=== PATIENT | female | born 1970 | race Caucasian/White ===

== ENCOUNTER → 2024-02-22 15:38 | Outpatient (REF) | payer BC, SELFPAY | LOC: RAD 15:38 | PROVIDERS: ATTENDING PHYSICIAN Internal Medicine Rheumatology; FAMILY PHYSICIAN Family Medicine | DX: M05.79 Rheumatoid arthritis with rheumatoid factor of multiple sites without organ or systems involvement (principal); M75.52 Bursitis of left shoulder | CPT/HCPCS: 73030 ==

== ENCOUNTER 2024-08-13 16:00 | Inpatient (IN) | payer BC, SELFPAY ==
[2024-08-13] VITALS (16 sets, daily range): BP systolic 88–127; BP diastolic 53–108; BMI 29.7; BMI 30.2
[2024-08-13] MEDS: ZOFRAN 4 MG IV (11:29)
[2024-08-13] MEDS: NSS 1000 IV ×2 (11:29→14:14)
[2024-08-13 11:41] LABS: % Basophils 0.2 % (0-2); % Immature Granulocytes 0.7 % (0-0.5); % Monocytes 11.1 % (1.7-9.3); Absolute Immature Granulocytes 0.1 10^3/uL (0-0.05); Absolute Lymphocytes 0.5 10^3/uL (1.2-3.4); Absolute Neutrophils 7.6 10^3/uL (1.4-6.5); Hematocrit 39.2 % (37.0-47.0); Hemoglobin 12.9 g/dL (12.0-16.0); Mean Corp Hgb Conc. 32.9 g/dL (33.0-37.0); Mean Corpuscular Hgb 31.2 pg (27.0-31.0); Mean Corpuscular Volume 94.7 fL (81.0-99.0); Mean Platelet Volume 9.8 fL (7.4-10.4); Nucleated Red Blood Cells % 0 %; Platelet Count 255 10^3/uL (130-400); Red Blood Cell Count 4.14 10^6/uL (4.20-5.40); Red Cell Dist. Width 16.4 % (11.5-14.5); White Blood Cell Count 9.1 10^3/uL (4.8-10.8)
--- NOTE | 2024-08-13 11:41 | ED.GENMED ---
History of Present Illness
General
Chief Complaint: Abdominal Symptoms
Source: patient
Time Seen by Provider: 08/13/24 10:57
Nursing documentation reviewed up to this point in time: agreed with
History of Present Illness
History of Present Illness:
53 y/o F
stage IV kidney ca
had initial nephrectomy R in 2017, no chemo/rad
then recurrence L kidney 2021, had partial L nephrectomy
here 1 year ago for obstruction L ureteral calculus requiring stent but cr was normal then
cr was 1.66 1 week ago
here for nausea/vomiting, intermittent abd pain, lack of appetite, fluctating bps
sypmtoms started 5 days ago, felt lightheaded, nauseated, no appetite
but didn't start vomiting until las tnight
vomited 10 times
says alexandria last had chemo 5 days ago because they are going to try her on a different regimen because she wasn't tolerating
she has also had low bps, and the high bps th epast 5 days
no fever, chills, diarrhea, black stool, passing out
[facility] make sure she doesn't have brain mets
Past History
Past History
ED Past Medical History: IDDM and Other (RA)
ED Past Surgical History: Orthopedic and Tonsilectomy
Social History
Tobacco: Non-smoker
Drug: None
Personal: Single
Employment: Other
Review of Systems
Review of Systems
Allergies reviewed?: Yes
All Other Systems: Not applicable
Phy Exam
Physical Exam
Physical Exam:
GENERAL: Alert , in no apparent distress
EYE: pupils equal and reactive
NECK: Supple
ENT: o/p clr, dry mouth
CARDIAC: Regular rate and rhythm .
LUNGS: Clear breath sounds bilaterally, no acute respiratory distress, no wheezes/rales/rhonchi
ABDOMEN: Soft, generalized abdominal tenderness, no r/g, no cvat, normal bowel sounds
NEUROLOGICAL: Alert and oriented, no focal neuro deficits
SKIN: Warm and dry, skin intact.
MUSCULOSKELETAL: No edema, well perfused. neg abbe's sign
PSYCH: Normal and appropriate interaction.
Course
Orders/Labs/Results
Orders:
Orders
08/13/24 11:24
Electrocardiogram (*1) Urgent
Reason for Study: Fatigue / Weakness
EKG- Treatment ONCE
0.9% Sodium Chloride 1000 ml [Nss] 1,000 ml IV BOLUS
Ondansetron Injectable [Zofran] 4 mg IV NOW STA
08/13/24 11:25
CT Head W/o Iv Contrast Urgent
Comment:
Reason For Exam: vomiting, kidney cancer
08/13/24 11:30
COVID-19 Antigen Urgent
Source: Nasal Swab
Complete Blood Count/With Diff Urgent
Comprehensive Metabolic Panel Urgent
Lipase Urgent
Influenza A+B Rapid Molecular Urgent
SILVER Source: Nasal Swab
Specimen Description:
08/13/24 12:05
CT Abd/pel Without Iv Or Oral Urgent
Comment:
Reason For Exam: vomiting, acute renal failure
Bladder Scan- Treatment ONCE
08/13/24 12:35
Lactic Acid Q4H
Comment: CANCEL 2nd LACTIC ACID IF 1st LACTIC ACID IS LESS THAN 2
Venous Blood Gas Urgent
%Oxygen/Room Air: 21
08/13/24 12:39
Consult Nephrology [NEPHROLOGY CONSULT] Routine
Consulting Provider: Spencer Lane V.
Was physician already notified: Yes
08/13/24 13:08
Frazier Placement- Treatment ONCE
Reason for insertion: Acute Kidney Injury
CefTRIAXone [Rocephin] 1,000 mg IV NOW STA
08/13/24 13:09
0.9% Sodium Chloride 1000 ml [Nss] 1,000 ml IV BOLUS
08/13/24 13:32
Urinalysis Reflex To Culture Urgent
Date Specimen was Collected: 08/13/24
Time Specimen was Collected: 13:27
Urine Microscopic Reflex Cult Urgent
Blood Culture Urgent
SILVER Source: Blood/Venous
Specimen Description:
08/13/24 13:45
Dextrose 5%/Water 1000 ml [D5w] 1,000 ml Sodium Bicarbonate 150 meq IV 150 mls/hr
08/13/24 15:05
Admit/Transfer Patient As Directed
Co-Sign Provider:
Level of Care: Inpatient admission
Assign to:: IMU- Intermediate Care
Physician / Group: Ilzabeth/hospitalist
Diagnosis: YOLIE, met renal cell cancer, hypotension
Reason for Hospitalization: YOLIE, met renal cell cancer, hypotension
Expected length of stay greater than two midnights?: Yes
ELOS- Estimated Length of Stay in days: 4
I certify the patient meets the requirements for IP care: Yes
08/13/24 15:06
PRN Pain Medication Management As Directed
May give lesser potent ordered pain med per pt: Yes
preference::
Protocol:: Medication orders for pain may be administered in a
manner that supports deferring to patient preference
when the pt is:
- Requesting an ordered lesser potent pain medication.
Least to most potent pain medications are defined
as: acetaminophen < NSAID < tramadol < opioids
(morphine, oxycodone, hydromorphone).
- Requesting a lesser dose of the same medication IF
ORDERED.
- Requesting a less intrusive route of administration
if both routes are prescribed by the provider (PO <
IV).
08/13/24 15:08
Code Status As Directed
Resuscitation Status: Full Code
08/13/24 15:29
CR Chest Portable - 1 View Stat
Comment:
Reason For Exam: SOB
Reason Study Needs to be Portable: Patient Unstable
08/13/24 16:15
Lactic Acid Q4H
Comment: CANCEL 2nd LACTIC ACID IF 1st LACTIC ACID IS LESS THAN 2
Abnormal Lab Results
08/13/24 08/13/24 08/13/24
11:30 12:35 13:32
RBC 4.14 L 10^6/uL
(4.20-5.40)
MCH 31.2 H pg
(27.0-31.0)
MCHC 32.9 L g/dL
(33.0-37.0)
RDW 16.4 H %
(11.5-14.5)
Abs Immat Gran (auto) 0.1 H 10^3/uL
(0-0.05)
Absolute Neuts (auto) 7.6 H 10^3/uL
(1.4-6.5)
Absolute Lymphs (auto) 0.5 L 10^3/uL
(1.2-3.4)
Absolute Monos (auto) 1.0 H 10^3/uL
(0.1-0.6)
Immature Gran % 0.7 H %
(0-0.5)
Neutrophils % 83.0 H %
(42.2-75.2)
Lymphocytes % 5.0 L %
(20.5-51.1)
Monocytes % 11.1 H %
(1.7-9.3)
VBG pH 7.14 L*
(7.32-7.43)
VBG pO2 52 H mmHg
(30-50)
VBG HCO3 14.3 L mmol/L
(22-27)
Carbon Dioxide 13 L* mmol/L
(22-30)
BUN 49 H mg/dl
(7-17)
Creatinine 7.6 H* mg/dL
(0.6-1.0)
Glucose 109 H mg/dl
(70-99)
Lactic Acid 6.0 H* mmol/L
(0.7-2.0)
Calcium 11.2 H mg/dl
(8.4-10.2)
AST 43 H U/L
(14-36)
ALT 45 H U/L
(0-35)
Total Protein 6.2 L g/dl
(6.3-8.2)
Lipase 436 H U/L
(23-300)
Ur Occult Blood Reflex 2+ A
(Negative)
Urine Albumin (Reflex) 2+ A
(Neg - Trace)
08/13/24 11:30
08/13/24 11:30
Vital Signs
Initial and Last Documented VS:
Initial Vital Signs
Temp Pulse Resp BP Pulse Ox
36.5 C 98 16 117/76 98
08/13/24 10:01 08/13/24 10:01 08/13/24 10:01 08/13/24 10:01 08/13/24 10:01
Last Documented Vital Signs
Temp Pulse Resp BP Pulse Ox
36.8 C 90 14 109/64 94
08/13/24 12:19 08/13/24 14:20 08/13/24 14:20 08/13/24 14:20 08/13/24 14:20
MDM/Problems Addressed
Differential Diagnosis Includes:
ARF, dehdyration, vomiting, acidosis, obstruction
MDM/Problems Addressed:
catrachitomacarena rosario 53 y/o F
stage IV kidney ca
had initial nephrectomy R in 2017, no chemo/rad
then recurrence L kidney 2021, had partial L nephrectomy
here 1 year ago for obstruction L ureteral calculus requiring stent but cr was normal then
cr was 1.66 1 week ago
the past 5 days says she had nauesa, low and high bp readings and wasn't feeling well
last night started vomiting, vomited 10 times
vitals normal
looks dry mm
abd mild diffuse tenderness
cr is 7.6, bicarb 13, bun 49, k normal, lactate 6, venous ph 7.1, bladder scan 2ml
ct suggests some chroniv vs. acute perirenal/periureteral stranding which could be ascending infx
will place frazier and send UA and will cover with empiric abx
i spoke with dr. lane from nephro
recommended bicarb in the fluids
will see pt
*Critical Care Note
Total Time (30-74mins, 75-104mins- exclusive of procedures): Not Applicable
Update Note
Update Note:
[phone] nidhi RODNEY from [facility] called and spoke with me and was updated,
anna is the oncologist;
ED Attending Note
-
Portions of this chart may have been created with voice recognition software.� Occasional wrong word or��sound alike� substitutions may have occurred due to the inherent limitations of voice recognition software.
Discharge Plan
Departure
Patient Disposition: Admit
Date of Disposition: 08/13/24
Time of Disposition: 12:39
Admit to: IMU
Presentation/result/management discussed w/ accepting MD/DO: Hospitalist
Covid-19: Not Applicable
Discharge Problem:
Acute renal failure, Vomiting
Prescriptions:
No Action
clonidine HCl 0.1 mg Tablet
0.1 mg PO BID
insulin glargine U-300 conc [Toujeo SoloStar U-300 Insulin] 300 unit/mL (1.5 mL) Insulin Pen
20 unit SC HS
Humalog KwikPen Insulin 200 unit/mL (3 mL) Insulin Pen
1 sliding scale dose SC DIRECTED
Patient Comments:
07/12/2023, patient states that they take this medication with their meals but is unsure of their sliding scale dose.
Rinvoq 15 mg Tablet Extended Release 24 Hr
15 mg PO HS
therapeutic multivitamin Tablet
1 tab PO DAILY
simethicone 80 mg Tablet,Chewable
80 mg PO QIDPRN PRN (Reason: gas)
metformin 500 mg Tablet Extended Release 24hr
1,000 mg PO BID@0800,1700
atorvastatin 80 mg Tablet
80 mg PO DAILY
ondansetron HCl 4 mg tablet
4 mg PO Q8HPRN PRN (Reason: nausea)
prednisone 5 mg Tablet
5 mg PO DAILY
levothyroxine 88 mcg Tablet
88 mcg PO DAILY
amlodipine-olmesartan 10-40 mg Tablet
1 tab PO DAILY
Interventions
Interventions:
*Risk Screen - Suicide Last Done: 08/13/24 10:05
*General Assessment Last Done: 08/13/24 10:05
*Neglect/Abuse Screening Last Done: 08/13/24 10:05
ED- Fall Risk Assessment Last Done: 08/13/24 11:36
*ED COVID-19 Vaccine History Last Done: 08/13/24 10:05
DU-Nhbugh-Qenciobcfb Assessment Last Done: 08/13/24 11:36
Discharge Date and Time
Print Language: MAORI
[2024-08-13 11:58] LABS: COVID-19 Antigen Negative (Negative)
[2024-08-13 12:00] LABS: ALT (SGPT) 45 U/L (0-35); AST (SGOT) 43 U/L (14-36); Alkaline Phosphatase 122 U/L (38-126); Blood Urea Nitrogen 49 mg/dl (7-17); Calcium 11.2 mg/dl (8.4-10.2); Carbon Dioxide 13 mmol/L (22-30); Chloride 98 mmol/L (98-107); Estimated Creatinine Clearance 8 ml/min; Glucose 109 mg/dl (70-99); Lipase 436 U/L (23-300); Potassium 4.2 mmol/L (3.5-5.1); Sodium 135 mmol/L (135-145); Total Bilirubin 0.7 mg/dl (0.2-1.3); Total Protein 6.2 g/dl (6.3-8.2); eGFR 5.87
[2024-08-13 12:44] LABS: Venous Blood Gas B.E. -14.1 mmol/L (-4 to +4); Venous Blood Gas HCO3 14.3 mmol/L (22-27); Venous Blood Gas O2 Sat % 83.9 %; Venous Blood Gas pCO2 42 mmHg (35-48); Venous Blood Gas pO2 52 mmHg (30-50)
[2024-08-13 12:48] LABS: Venous Blood Gas pH 7.14 (7.32-7.43)
--- NOTE | 2024-08-13 13:41 | W.CON.NEPH ---
Consultation
-
Date/Time Consultation Requested: August 13, 2024 1:15 PM
Date/Time Consultation Performed: August 13, 2024 1:30 PM
Requesting Provider: Dr. Hidalgo
Performing Provider: Dr. Meeks
Reason for Consultation: Acute kidney injury
Medical History
-
Chief Complaint: Acute kidney injury
History of Present Illness:
The patient is a 53-year-old female with a past medical history of hypertension maintained on clonidine amlodipine olmesartan. She has a history of diabetes maintained both on insulin and oral medications including metformin. She has a history of
chronic kidney disease with a noted creatinine of 1.6 per review of records earlier this week. She has a longstanding history of renal cell carcinoma and underwent right nephrectomy in 2017. She also maintained partial left nephrectomy in 2021 and
recently was noted to have recurrence of disease. She had been previously on chemotherapy which was discontinued I believe within the past 1 to 2 weeks and was to undergo an alternative chemotherapy regimen at the direction of [facility]. She
presented to the hospital with intractable vomiting nausea and abdominal pain. Her creatinine is now up to 7.6 with associated metabolic acidosis and nephrology was asked to see the patient.
Past Medical History
Renal cell carcinoma with history of right nephrectomy in 2017 and left partial nephrectomy in 2021
Hypertension
CKD stage IIIb with baseline creatinine of 1.6
History of nephrolithiasis requiring ureter stent in 2022
Diabetes
Hypothyroidism
Hyperlipidemia
Rheumatoid arthritis
Social History
Tobacco: Non-Smoker
Alcohol: None
Family History
No CKD
Allergies / Home Medications
Allergy/AdvReac Type Severity Reaction Status Date / Time
No Known Allergies Allergy Verified 08/13/24 10:05
�Medication �Instructions �Recorded �Confirmed �Type
clonidine HCl 0.1 mg tablet 0.1 mg PO BID Blood Pressure 07/12/23 08/13/24 History
insulin glargine U-300 conc 300 20 unit SC HS Diabetes 07/12/23 08/13/24 History
unit/mL (1.5 mL) subcutaneous pen
(Touandieo SoloStar U-300 Insulin)
insulin lispro 200 unit/mL (3 mL) 1 sliding scale dose SC 07/12/23 08/13/24 History
subcutaneous pen (Humalog KwikPen DIRECTED Diabetes
U-200 Insulin)
metformin 500 mg tablet,extended 1,000 mg PO BID@0800,1700 Diabetes 07/12/23 08/13/24 History
release 24hr (osmotic)
simethicone 80 mg chewable tablet 80 mg PO QIDPRN PRN gas 07/12/23 08/13/24 History
therapeutic multivitamin 1 tab PO DAILY Supplement 07/12/23 08/13/24 History
upadacitinib 15 mg tablet,extended 15 mg PO HS rheumatoid arthritis 07/12/23 08/13/24 History
release 24 hr (Rinvoq)
amlodipine 10 mg-olmesartan 40 mg 1 tab PO DAILY Blood Pressure 08/13/24 08/13/24 History
tablet
atorvastatin 80 mg tablet 80 mg PO DAILY High Cholesterol 08/13/24 08/13/24 History
levothyroxine 88 mcg tablet 88 mcg PO DAILY Thyroid 08/13/24 08/13/24 History
ondansetron HCl 4 mg tablet 4 mg PO Q8HPRN PRN nausea 08/13/24 08/13/24 History
prednisone 5 mg tablet 5 mg PO DAILY Anti-Inflammatory 08/13/24 08/13/24 History
Review of Systems
-
History Source: Patient
All other systems: Negative unless noted
Constitutional: Fatigue
Respiratory: No Symptoms
Cardiac: No Symptoms
Abdomen/GI: Abdominal Pain, Nausea, Vomiting and Diarrhea
: Other (Decreased urine output)
Musculoskeletal: Joint Pain
Skin: No Symptoms
Neurological: No Symptoms
Endocrine: No Symptoms
Hematologic/Lymphatic: No Symptoms
Physical Exam
Vital Signs
Vital Signs
Temp Pulse Resp BP Pulse Ox
98.3 F 82 15 102/62 100
08/13/24 12:19 08/13/24 12:36 08/13/24 12:36 08/13/24 12:36 08/13/24 12:36
Lab Results
08/13/24 11:30
08/13/24 11:30
WBC 9.1 10^3/uL (4.8-10.8) 08/13/24 11:30
RBC 4.14 10^6/uL (4.20-5.40) L 08/13/24 11:30
Hgb 12.9 g/dL (12.0-16.0) 08/13/24 11:30
Hct 39.2 % (37.0-47.0) 08/13/24 11:30
Plt Count 255 10^3/uL (130-400) 08/13/24 11:30
Sodium 135 mmol/L (135-145) 08/13/24 11:30
Potassium 4.2 mmol/L (3.5-5.1) 08/13/24 11:30
Chloride 98 mmol/L (98-107) 08/13/24 11:30
Carbon Dioxide 13 mmol/L (22-30) L* 08/13/24 11:30
BUN 49 mg/dl (7-17) H 08/13/24 11:30
Creatinine 7.6 mg/dL (0.6-1.0) H* 08/13/24 11:30
eGFR 5.87 08/13/24 11:30
Glucose 109 mg/dl (70-99) H 08/13/24 11:30
Calcium 11.2 mg/dl (8.4-10.2) H 08/13/24 11:30
Albumin 4.0 g/dl (3.5-5.0) 08/13/24 11:30
Physical Exam
General: AOx3, Nontoxic , NAD
HEENT: PERRL, EOMI, Anicteric, Conjunctivae Clear, Ear/Nose Intact, Hearing Normal, Oropharynx Clear/Moist, Dentition Intact, Facial Symmetry, Neck Supple, Neck: Trachea Midline, No JVD and No Thyromegaly, no Bruits
Respiratory: Clear to auscultation bilaterally with normal lung exersion
Cardiac: S1/S2 and Regular Rate/Rhythm
Breast: Deferred by me
Abdomen: Soft, tender, Nondistended, Normal Bowel Sounds and No Hepatosplenomegaly
Rectal: Deferred by Provider
Genito-urinary: No Costovertebral Tenderness
Extremities: No Clubbing, No Cyanosis and trace edema
Skin: No Rash or open lesions
Neuro: Nonfocal/Grossly Intact, CN II-XII (Intact) and Strength (Musculoskeletal exam 5 out of 5 both upper and lower extremities)
Hematologic/Lymphatic: No Cervical Lymphadenopathy, No Submandibular Lymphadenopathy and No Supraclavicular Lymphadenopathy
Psych: Mood/afflect pleasant, Insight/judgement good and Appropriate
Vascular: plus 2 pedal and radial pulses
Data Reviewed
-
Radiology: Report Reviewed by me (CT of abdomen and pelvis without acute obstruction)
Labs: Labs Reviewed by me (BMP CBC)
Old Records: Reviewed (Reviewed previous creatinine level of 1.3 in electronic medical record from 07/12/2023)
Assessment/Plan
-
Impression:
Nausea vomiting abdominal pain
Acute kidney injury 7.6)
Chronic kidney disease stage IIIb with baseline creatinine 1.6
Gapped metabolic acidosis with associated lactic acidosis (24)
Hypertension
Diabetes
History of rheumatoid arthritis
History of obstructive uropathy with history of ureter stent in 2022
Right nephrectomy in 2007
Left partial nephrectomy in 2021
Plan:
YOLIE:
No obvious urinary obstruction on CT scan in setting of unilateral kidney
Suspect strong prerenal stimulus from GI volume losses and hypotension
Will provide sodium bicarbonate drip in the 150 cc/h for underlying gapped lactic acidosis and to support hemodynamic
Hold metformin in setting of acute kidney injury and metabolic acidosis
Obtain urinalysis, urine sodium ,urine creatinine
No acute dialysis requirement today
Hold antihypertensives especially ARB in setting of acute kidney injury and hypotension
[2024-08-13] MEDS: ROCEPHIN 1000 MG IV (14:14)
[2024-08-13] MEDS: SODIUM BICARBONATE 1150 MEQ IV ×2 (14:18→21:52)
[2024-08-13 14:32] LABS: Urine Albumin 2+ (Neg - Trace); Urine Bilirubin Negative (Negative); Urine Character Slightly Cloudy (Clear); Urine Color Yellow; Urine Glucose Negative (Negative); Urine Ketone Negative (Negative); Urine Leukocyte Negative (Negative); Urine Nitrite Negative (Negative); Urine Occult Blood 2+ (Negative); Urine Specific Gravity 1.015 (<1.030); Urine Urobilinogen Negative (Neg - 1+)
[2024-08-13 15:05] LABS: Urine Amorphous Seen; Urine Urothelial Cell 0-2 /LPF (FEW)
[2024-08-13 15:06] LABS: Urine Red Blood Cell 0-2 /HPF (0-2); Urine White Cell 0-2 /HPF (0-5)
--- NOTE | 2024-08-13 15:30 | HPS.HSE ---
Addendum entered and electronically signed by Tavia Barone DO 08/13/24 17:10:
I spoke to interventional radiologist, Dr. Romeo, who reviewed CT scan w/o contrast, said not intervention required at this time. Will hold off on formal consult to IR.
Original Note:
Family Physician
-
Family Physician: Nakul Montes
Chief Complaint
-
left flank pain, n/v
History of Present Illness
53 yo woman with PMH significant for HTN (on ARB and multiple BP meds), renal cell cancer w mets to liver (treated at [facility] w Dr. Guidry), not actively on chemo currently as they were discussing change in cancer txt, on prednisone 5 mg daily
and txt for RA, s/p right nephrectomy and partial left nephrectomy, who presents with very little urine output, left flank pain, and 10 or so episodes of vomiting. No fever, no CP, no SOB, no dysuria. 3 mL of urine on bladder scan in ED. Creat up to
7.6 in ED. Nephro consulted from ED.
Medical History
Past Medical History
Past Medical History: Reports Other (Renal cell carcinoma with history of right nephrectomy in 2018 and left partial nephrectomy in 2021 Hypertension CKD stage IIIb with baseline creatinine of 1.6 History of nephrolithiasis requiring ureter stent in
2022 Diabetes Hypothyroidism Hyperlipidemia Rheumatoid arthritis)
Additional Past Medical History:
Renal cell carcinoma with history of right nephrectomy in 2018 and left partial nephrectomy in 2021
Hypertension
CKD stage IIIb with baseline creatinine of 1.6
History of nephrolithiasis requiring ureter stent in 2022
Diabetes, insulin dependent
Hypothyroidism
Hyperlipidemia
Rheumatoid arthritis
Past Surgical History: Reports Orthopedic, Tonsilectomy and Other
Additional Past Surgical History:
Renal cell carcinoma with history of right nephrectomy in 2018 and left partial nephrectomy in 2021
Social History
Alcohol: None
Drug: None
Personal: Single
Family History
Family History: Not pertinent
Allergies / Home Medications
Allergies reflects when Allergies were last updated in [employer].
Home Medications with original date entered in [employer]
Allergy/Medication List:
Allergies
Allergy/AdvReac Type Severity Reaction Status Date / Time
No Known Allergies Allergy Verified 08/13/24 10:05
Home Medications
clonidine HCl 0.1 mg tablet 0.1 mg PO BID Blood Pressure 07/12/23
insulin glargine U-300 conc 300 unit/mL (1.5 mL) subcutaneous pen (Toujeo SoloStar U-300 Insulin) 20 unit SC HS Diabetes 07/12/23
insulin lispro 200 unit/mL (3 mL) subcutaneous pen (Humalog KwikPen U-200 Insulin) 1 sliding scale dose SC DIRECTED Diabetes 07/12/23
metformin 500 mg tablet,extended release 24hr (osmotic) 1,000 mg PO BID@0800,1700 Diabetes 07/12/23
simethicone 80 mg chewable tablet 80 mg PO QIDPRN PRN gas 07/12/23
therapeutic multivitamin 1 tab PO DAILY Supplement 07/12/23
upadacitinib 15 mg tablet,extended release 24 hr (Rinvoq) 15 mg PO HS rheumatoid arthritis 07/12/23
amlodipine 10 mg-olmesartan 40 mg tablet 1 tab PO DAILY Blood Pressure 08/13/24
atorvastatin 80 mg tablet 80 mg PO DAILY High Cholesterol 08/13/24
levothyroxine 88 mcg tablet 88 mcg PO DAILY Thyroid 08/13/24
ondansetron HCl 4 mg tablet 4 mg PO Q8HPRN PRN nausea 08/13/24
prednisone 5 mg tablet 5 mg PO DAILY Anti-Inflammatory 08/13/24
Review of Systems
-
A 12 point ROS was completed and negative except as noted: Yes
Physical Exam
Vital Signs
Vital Signs
Temp Pulse Resp BP Pulse Ox
98.3 F 90 14 109/64 94
08/13/24 12:19 08/13/24 14:20 12/10/24 14:20 08/13/24 14:20 08/13/24 14:20
Physical Exam
General: Appears Chronically Ill
HEENT: NormoCephalic, Anicteric and Other (dry mucous membranes)
Respiratory: Clear
Cardiac: S1/S2 and Regular Rhythm
GI: Soft (CVA tenderness b/l)
Musculoskeletal: No Clubbing, No Cyanosis and Other (mild b/l LE edema)
Skin: Warm and Dry
Neuro: AO x 3, No Motor Deficits and Nonfocal/grossly intact
Psych: Calm
Laboratory Results
-
08/13/24 11:30
08/13/24 11:30
Laboratory Results
Lactic Acid 6.0 mmol/L (0.7-2.0) H* 08/13/24 12:35
Total Bilirubin 0.7 mg/dl (0.2-1.3) 08/13/24 11:30
AST 43 U/L (14-36) H 08/13/24 11:30
ALT 45 U/L (0-35) H 08/13/24 11:30
Alkaline Phosphatase 122 U/L (38-126) 08/13/24 11:30
Lipase 436 U/L (23-300) H 08/13/24 11:30
Impression/Plan
-
IMPRESSION:
53 yo woman with PMH significant for HTN (on ARB and multiple BP meds), renal cell cancer w mets to liver (treated at [facility] Dr. Guidry), not actively on chemo currently as they were discussing change in cancer txt, on prednisone 5 mg daily
and txt for RA, s/p right nephrectomy and partial left nephrectomy, who presents with very little urine output, left flank pain, and 10 or so episodes of vomiting. No fever, no CP, no SOB, no dysuria. 3 mL of urine on bladder scan in ED. Creat up to
7.6 in ED. Nephro consulted from ED.
#Renal cell carcinoma with mets to liver, status post right nephrectomy in 2018 and partial left nephrectomy 2021, treated at [facility] (not actively on chemo though immunosuppressed on steroids and Rinvoq for RA)
#Possible infected left kidney , acute vs acute on chronic
-IV Zosyn, renally dosed
-blood cultures
-discuss with Urology- consult placed
-consult IRad - to discuss findings on CT imaging as to whether percutaneous drain would be beneficial if there is drainable infection
#Acute renal failure, with Metabolic acidosis due to acute renal failure, possibly from severe volume depletion due to vomiting, less likely renal obstruction as imaging (non-contrast) does not show obstruction
-sterile water w bicarb at 150 mL per hour
-repeat LA levels
-serial lab monitoring
-hold ARB, hold nephrotoxic agents, renally dose meds
-UA labs
-check Mg
#Hypotensive with history of Hypertension
-hold BP meds
-monitor on tele in IMU, IVF
#CKD stage IIIb with baseline creatinine of 1.6
#History of nephrolithiasis requiring ureter stent in 2022
#Diabetes, insulin dependent
-half dose of long-acting insulin for now
-SSI
#Hypothyroidism
-check TSH
#Hyperlipidemia
#Rheumatoid arthritis
-hold Rinvoq for now due to severe ADR with steroids, cont prednisone 5 mg daily for now
DVT proph-Hep SQ
Full Code
[2024-08-13 17:58] LABS: Urine Sodium 93 mmol/L (30-90)
[2024-08-13 18:28] LABS: Lactic Acid 3.8 mmol/L (0.7-2.0)
--- NOTE | 2024-08-13 20:00 | PTCARENOTE ---
Resumed care of pt laying in bed AAOx3. Pt reports middle back pain 01/11, awaiting on pharmacy for pain medication. HR in the 80's in NSR on the monitor. POX 93% on 2 LO2 NC. POX 85% on RA. Lungs dec t/o. + bowel, round abd. Pt reports nausea
subsided at this time. Randle cath in place per nephrology for YOLIE. Scant clear yellow urine in bag at this time. Palpable peripheral pulses present. Pale skin. Right AC int infusing bicarb gtt@150ml/hr. Pt assisted to bathroom, pt ambulatory with
standby assist. Pt moved bowels without difficulty. Pt positioned in bed per comfort. Call ellison in reach will continue to monitor.
[2024-08-13 20:23] LABS: Magnesium 2.1 mg/dl (1.6-2.3)
[2024-08-13] MEDS: ULTRAM 50 MG PO (20:43)
[2024-08-13] MEDS: ZOSYN 50 IV (20:44)
[2024-08-13 20:58] LABS: Urine Sodium 93 mmol/L (30-90)
[2024-08-13] MEDS: HEPARIN 5000 UNITS SC (21:01)
[2024-08-13 21:33] LABS: Glucose - Point of Care 224 mg/dl (70-99)
[2024-08-13] MEDS: NOVOLOG FLEXPEN-MODERATE RESISTANCE 3 UNITS SC (21:49)
[2024-08-13] MEDS: LANTUS 0.08 UNITS SC (21:52)
[2024-08-14] VITALS (37 sets, daily range): BP systolic 82–135; BP diastolic 52–85; BMI 30.3
[2024-08-14 01:43] LABS: Lactic Acid 2.4 mmol/L (0.7-2.0)
--- NOTE | 2024-08-14 04:00 | PTCARENOTE ---
Rec'd pt from ER via bed on monitor, oriented to Routine, CHG bath done, SR, Bp stable,+ pulses, skin warm/dry, O2 2liters nc, lungs decr in bases, sat 95, + bowels sounds, no bm, abd obese, no n/v, mahogany fluids, frazier draining lluvia urine
0415- ultram 50mg po given for generalized pain
[2024-08-14] MEDS: SYNTHROID 88 MCG PO (04:13)
[2024-08-14] MEDS: ULTRAM 50 MG PO (04:13)
[2024-08-14 04:32] LABS: % Basophils 0.3 % (0-2); % Eosinophils 2.9 % (0-6); % Immature Granulocytes 0.7 % (0-0.5); % Lymphocytes 3.9 % (20.5-51.1); % Monocytes 9.5 % (1.7-9.3); % Neutrophils 82.7 % (42.2-75.2); Absolute Eosinophils 0.2 10^3/uL (0-0.7); Absolute Immature Granulocytes 0.1 10^3/uL (0-0.05); Absolute Lymphocytes 0.3 10^3/uL (1.2-3.4); Absolute Monocytes 0.7 10^3/uL (0.1-0.6); Absolute Neutrophils 5.9 10^3/uL (1.4-6.5); Hematocrit 32.7 % (37.0-47.0); Hemoglobin 11.2 g/dL (12.0-16.0); Mean Corp Hgb Conc. 34.3 g/dL (33.0-37.0); Mean Corpuscular Hgb 31.6 pg (27.0-31.0); Mean Corpuscular Volume 92.4 fL (81.0-99.0); Mean Platelet Volume 9.9 fL (7.4-10.4); Nucleated Red Blood Cells % 0 %; Platelet Count 196 10^3/uL (130-400); Red Blood Cell Count 3.54 10^6/uL (4.20-5.40); Red Cell Dist. Width 16.2 % (11.5-14.5); White Blood Cell Count 7.2 10^3/uL (4.8-10.8)
[2024-08-14 04:59] LABS: ALT (SGPT) 36 U/L (0-35); AST (SGOT) 33 U/L (14-36); Albumin 2.7 g/dl (3.5-5.0); Alkaline Phosphatase 93 U/L (38-126); Blood Urea Nitrogen 58 mg/dl (7-17); Carbon Dioxide 27 mmol/L (22-30); Chloride 95 mmol/L (98-107); Creatine Phosphokinase 47 U/L (30-135); Estimated Creatinine Clearance 9 ml/min; Glucose 112 mg/dl (70-99); Potassium 3.7 mmol/L (3.5-5.1); Sodium 133 mmol/L (135-145); Total Bilirubin 0.5 mg/dl (0.2-1.3); Total Protein 4.7 g/dl (6.3-8.2); eGFR 6.95
[2024-08-14] MEDS: SODIUM BICARBONATE 1150 MEQ IV (04:59)
[2024-08-14] MEDS: NOVOLOG FLEXPEN-MODERATE RESISTANCE SC ×3 (07:53→17:49)
--- NOTE | 2024-08-14 07:55 | PTCARENOTE ---
0700 patient in bed. Sodium Bicarb infusing 150/hr via RT FA.
AAO x3. Moves b/l UE and LE Equal straight
SR 77 BP Via left UA 117/74 MAP 83
Lungs diminished. RR 14; On 2L of O2 96% on RA 86% No SOB no cough
Abdomen round soft tender . Hyperactive BS . +Nausea No vomiting
Indwelling Randle inserted in ER . Draining Clear pale urine. Oliguria over night
peripheral lines RT AC #20 Left hadn capped # 20
Blood sugar am 85 No coverage
HOB elevated. call ellison within reach
--- NOTE | 2024-08-14 08:04 | PTCARENOTE ---
Medication Compactability
Zosyn and bicarb both comparable verified via [employer]
[2024-08-14 08:10] LABS: Glucose - Point of Care 85 mg/dl (70-99)
[2024-08-14] MEDS: LIPITOR 80 MG PO (08:18)
[2024-08-14] MEDS: ZOSYN 50 IV ×2 (08:18→19:54)
[2024-08-14] MEDS: HEPARIN 5000 UNITS SC ×2 (08:18→19:54)
[2024-08-14] MEDS: TYLENOL 650 MG PO (08:24)
--- NOTE | 2024-08-14 09:22 | W.PN.NEPH.PH ---
Today's Communication / Plan
-
IVF NSS
Assessment/Plan
-
Impression:
Nausea vomiting abdominal pain
Acute kidney injury 7.6)
Chronic kidney disease stage IIIb with baseline creatinine 1.6
Gapped metabolic acidosis with associated lactic acidosis (24)
Hypertension
Diabetes
History of rheumatoid arthritis
History of obstructive uropathy with history of ureter stent in 2022
Right nephrectomy in 2007
Left partial nephrectomy in 2021
Plan:
change IVF to NSS
follow BMP
no emergent HD needs
should escape dialysis
maintain frazier today
critical care time 31 minutes
-
-
Date of Service: August 14, 2024
CC / HPI / ROS
-
Chief Complaint:
YOLIE
History of Present Illness:
YOLIE/Cr down to 6.6
acidosis improved with IVF bicarb
Na low at 133
lactate improving
BP remains low
critically ill in ICU
frazier, in, nonoliguric
Review of Systems:
no CP/SOB
Labs
-
Labs:
WBC 7.2 10^3/uL (4.8-10.8) 08/14/24 04:21
RBC 3.54 10^6/uL (4.20-5.40) L 08/14/24 04:21
Hgb 11.2 g/dL (12.0-16.0) L 08/14/24 04:21
Hct 32.7 % (37.0-47.0) L 08/14/24 04:21
Plt Count 196 10^3/uL (130-400) D 08/14/24 04:21
Sodium 133 mmol/L (135-145) L 08/14/24 04:21
Potassium 3.7 mmol/L (3.5-5.1) 08/14/24 04:21
Chloride 95 mmol/L (98-107) L 08/14/24 04:21
Carbon Dioxide 27 mmol/L (22-30) 08/14/24 04:21
BUN 58 mg/dl (7-17) H 08/14/24 04:21
Creatinine 6.6 mg/dL (0.6-1.0) H* 08/14/24 04:21
eGFR 6.95 08/14/24 04:21
Glucose 112 mg/dl (70-99) H 08/14/24 04:21
Calcium 9.0 mg/dl (8.4-10.2) D 08/14/24 04:21
Albumin 2.7 g/dl (3.5-5.0) L 08/14/24 04:21
Physical Exam
-
Vital Signs:
Vital Signs
Temp Pulse Resp BP Pulse Ox
98.2 F 76 13 99/61 94
08/14/24 08:05 08/14/24 06:00 08/14/24 06:00 08/14/24 06:00 08/14/24 05:24
Cardiovascular:: Regular rate and rhythm
Respiratory:: Bilateral: CTA
Lung Excursion:: Normal
Abdomen:: Nontender and Soft
Bowel Sounds:: Normal
Extremity Edema:: None: Bilateral:
--- NOTE | 2024-08-14 10:23 | W.PN.HOSP.TC ---
Today's Communication/Plan
-
feeling better
see PN
Assessment / Plan
Assessment / Plan
53yo F with PMHX of RCC s/p R nephrectomy and partial L nephrectomy, CKD stage 3, Hx of nephrolithiasis, recent chemotherapy cycle that was terminated due to worsening nausea came with nausea, vomiting and minimal diarrhea over past 2 days prior to
admission, managed for complicated UTI with nephrolithiasis, YOLIE and also mild hypoxemia
A/P:
#UTI, complicated with non-obstructive nephrolithiasis and mild dilation of the L upper calyces
#Nausea most likely intolerance of the recent chemo
Zosyn
Urology consult
Bcx pending
Urine not indicative of infection
ZOfran
#Acute hypoxic insufficiency
#Atelectasis
R hemidiaphragm elevation
wheezing on exam
Bronchodilators
Increase steroids
Incentive spirometry
#YOLIE on CKD stage 3
most likely hypovolemic 2/2 dehydration
frazier
serial BMP
Nephrology
IVF
#RCC with liver lesions and L kidney mass and lythic osseous mets on L humeral head
cont follow up with [facility] upon d/c
#DJD
tylenol
#DM type 2 with nephropathy
DM diet, accuchecks, Insulin SS
decrease Glagrine to 8units
#minimal ALT elevation
follow LFT
HepC Ab
#Anemia of chronic disease
minimal
monitor CBC
#Essential HTN
#HLD
#hypothyroidism
#RA on steroids
Hold Rinvoq
TSH WNL
cont home meds except of BP meds since hypotension 2/2 dehydration
DVT ppx hep
Full code
I have spent at least 59min reviewing chart, test results, communication with consultants and direct patient care
Anticipated Discharge: > 48 hours
Subjective/Interval History
-
Date of Service: August 14, 2024
Objective Data
-
Labs:
Laboratory Results
08/14/24
04:21
WBC 7.2
Hgb 11.2 L
Hct 32.7 L
Plt Count 196 D
Sodium 133 L
Potassium 3.7
Chloride 95 L
Carbon Dioxide 27
BUN 58 H
Creatinine 6.6 H*
Glucose 112 H
Calcium 9.0 D
Total Bilirubin 0.5
AST 33
ALT 36 H
Alkaline Phosphatase 93
Vital Signs:
Vital Signs
Temp Pulse Resp BP Pulse Ox
98.2 F 76 13 99/61 94
08/14/24 08:05 08/14/24 06:00 08/14/24 06:00 08/14/24 06:00 08/14/24 05:24
I&O
08/13/24 08/14/24 08/15/24
06:59 06:59 06:59
Intake Total 1700 / 1700
Output Total 190 / 190
Balance 1510 / 1510
Review of Systems
-
History Source: Patient
All other systems: Reviewed and negative
Abdomen/GI: Reports Abdominal Pain (LLQ)
Physical Exam
-
General: No Apparent Distress
HEENT: Normocephalic
Respiratory: Wheezes
Neuro: Awake, Alert, Oriented and AO x 3
Psych: Calm
[2024-08-14] MEDS: DELTASONE 5 MG PO (10:47)
[2024-08-14] MEDS: NSS 1000 IV ×2 (10:49→20:30)
[2024-08-14] MEDS: ZOFRAN 4 MG IV (10:55)
[2024-08-14] MEDS: DUONEB 3 ML INH ×3 (11:03→19:17)
[2024-08-14 11:58] LABS: Glucose - Point of Care 106 mg/dl (70-99)
--- NOTE | 2024-08-14 14:47 | CM ---
CM following re: discharge planning.
Reviewed pt's chart, met with pt.
Pt is a 53 year old female, admitted with primary dx of YOLIE.
Pt reports she lives with 85 year old mother in a 2SH, 2 steps to enter, has supportive brother, has no children. Pt described herself as independent in all areas [employer]. No DME, VN or SNF history
PCP: Nakul Montes
Pharmacy: [facility]
D/C plan: home with anticipated no needs. Family to transport at discharge.
CM will follow with discharge plan updates as hospitalization progresses
--- NOTE | 2024-08-14 17:22 | PTCARENOTE ---
OOB chair for about 3 hours . Transfer one person minimum assist. AAO x3. SR 80's BP 96/54 MAP 67. continues to c/o of chronic lower back pain. abdomen soft round tender. Randle draining pale color urine. NSS infusing per order
[2024-08-14 17:36] LABS: Glucose - Point of Care 135 mg/dl (70-99)
[2024-08-14] MEDS: LANTUS 0.08 UNITS SC (22:02)
[2024-08-14 22:12] LABS: Glucose - Point of Care 193 mg/dl (70-99)
--- NOTE | 2024-08-14 22:12 | PTCARENOTE ---
Patient received in bed AAOx3 and able to make her needs known. Denies pain, nausea, and sob at this time. Plan of care for the shift reviewed with the patient. Sinus rhythm on the monitor. Patient is on 2L O2/nc with SpO2 at 96%. Diminished breath
sounds. The patient has a dry cough with inhalation, dyspneic with inhalation. IS max of 500 x4 attempts. Teaching and encouragement provided on the importance of IS use to improve lungs function. Pt verbalized understanding. Pt ambulated to the
bathroom with assist. Pt assisted in night care and wiping herself with CHG wipes. Randle catheter is draining yellow urine. Normal saline at 100 ml/hr. Pt turns and repositions herself. Bed in the lowest position. Call ellison is within reach.
[2024-08-15] VITALS (23 sets, daily range): BP systolic 87–150; BP diastolic 59–102; BMI 30.7
--- NOTE | 2024-08-15 04:00 | PTCARENOTE ---
assumed care of pt, no changes from previous assessment, labs sent, pt denies pain, otherwise refer to documentation.
[2024-08-15 04:13] LABS: % Basophils 0.2 % (0-2); % Immature Granulocytes 0.5 % (0-0.5); % Lymphocytes 2.4 % (20.5-51.1); % Monocytes 7.1 % (1.7-9.3); % Neutrophils 89.8 % (42.2-75.2); Absolute Lymphocytes 0.2 10^3/uL (1.2-3.4); Absolute Monocytes 0.5 10^3/uL (0.1-0.6); Hematocrit 36.2 % (37.0-47.0); Mean Corp Hgb Conc. 33.1 g/dL (33.0-37.0); Mean Corpuscular Volume 93.5 fL (81.0-99.0); Mean Platelet Volume 10.1 fL (7.4-10.4); Nucleated Red Blood Cells % 0 %; Platelet Count 211 10^3/uL (130-400); Red Blood Cell Count 3.87 10^6/uL (4.20-5.40); Red Cell Dist. Width 16.5 % (11.5-14.5); White Blood Cell Count 6.7 10^3/uL (4.8-10.8)
[2024-08-15 05:00] LABS: ALT (SGPT) 35 U/L (0-35); AST (SGOT) 40 U/L (14-36); Albumin 2.9 g/dl (3.5-5.0); Alkaline Phosphatase 123 U/L (38-126); Blood Urea Nitrogen 65 mg/dl (7-17); Calcium 9.5 mg/dl (8.4-10.2); Carbon Dioxide 27 mmol/L (22-30); Chloride 92 mmol/L (98-107); Estimated Creatinine Clearance 8 ml/min; Glucose 134 mg/dl (70-99); Potassium 3.9 mmol/L (3.5-5.1); Sodium 134 mmol/L (135-145); Total Bilirubin 0.6 mg/dl (0.2-1.3); Total Protein 5.1 g/dl (6.3-8.2); eGFR 6.16
[2024-08-15] MEDS: SYNTHROID 88 MCG PO (05:15)
[2024-08-15] MEDS: DUONEB 3 ML INH ×4 (07:10→19:06)
[2024-08-15 07:54] LABS: Glucose - Point of Care 111 mg/dl (70-99)
[2024-08-15] MEDS: NOVOLOG FLEXPEN-MODERATE RESISTANCE SC (08:05)
[2024-08-15] MEDS: DELTASONE PO (08:29)
[2024-08-15] MEDS: ZOSYN IV (08:29)
--- NOTE | 2024-08-15 08:49 | W.PN.HOSP.TC ---
Today's Communication/Plan
-
increase prednisone
broad spectrum Abx
Urology for stent - hold Glargine tonight
Repeat Bcx
Assessment / Plan
Assessment / Plan
53yo F with PMHX of RCC s/p R nephrectomy and partial L nephrectomy, CKD stage 3, Hx of nephrolithiasis, recent chemotherapy cycle that was terminated due to worsening nausea came with nausea, vomiting and minimal diarrhea over past 2 days prior to
admission, managed for complicated UTI with nephrolithiasis, bacteremia, YOLIE and also mild hypoxemia
A/P:
#UTI, complicated with non-obstructive nephrolithiasis and mild dilation of the L upper calyces
#Nausea most likely intolerance of the recent chemo
Urology consult: pending stent
Urine not indicative of infection
ZOfran
#Bacteremia
GPC in blood
Hx of strep. UTI
with ill defined mass L kidney - stable, discussed drain with [facility] on admission, at this time not indicated
Repeat Bcx
Vanco/Zosyn
UA neg
Echo
#Acute hypoxic insufficiency
#Atelectasis
R hemidiaphragm elevation
wheezing on exam
Bronchodilators
Increase steroids
Incentive spirometry
#YOLIE on CKD stage 3
most likely hypovolemic 2/2 dehydration
fraizer
serial BMP
Nephrology
IVF
#RCC with liver lesions and L kidney mass and lithic osseous mets on L humeral head
cont follow up with [facility] upon d/c
#DJD
tylenol
#DM type 2 with nephropathy
DM diet, accuchecks, Insulin SS
decrease Glagrine to 8units
#minimal ALT elevation
follow LFT
HepC Ab
#Anemia of chronic disease
minimal
monitor CBC
#Essential HTN
#HLD
#hypothyroidism
#RA on steroids
Hold Rinvoq
TSH WNL
cont home meds except of BP meds since hypotension 2/2 dehydration
DVT ppx hep
Full code
I have spent at least 59min reviewing chart, test results, communication with consultants and direct patient care
Anticipated Discharge: > 48 hours
Subjective/Interval History
-
Date of Service: August 15, 2024
Objective Data
-
Labs:
Laboratory Results
08/15/24
03:43
WBC 6.7
Hgb 12.0
Hct 36.2 L
Plt Count 211
Sodium 134 L
Potassium 3.9
Chloride 92 L
Carbon Dioxide 27
BUN 65 H
Creatinine 7.3 H*
Glucose 134 H
Calcium 9.5
Total Bilirubin 0.6
AST 40 H
ALT 35
Alkaline Phosphatase 123
Vital Signs:
Vital Signs
Temp Pulse Resp BP Pulse Ox
98.3 F 84 18 117/63 95
08/15/24 08:00 08/15/24 07:10 08/15/24 07:10 08/15/24 06:00 08/15/24 07:10
I&O
08/14/24 08/15/24 08/16/24
06:59 06:59 06:59
Intake Total 1700 / 1850 2080 / 2080
Output Total 190 / 190 875 / 875
Balance 1510 / 1660 1205 / 1205
Review of Systems
-
History Source: Patient
All other systems: Reviewed and negative
Abdomen/GI: Reports Bloated
Physical Exam
-
General: No Apparent Distress
HEENT: Normocephalic
Respiratory: Clear to Auscultation
GI: Soft, Nondistended and Tender
Musculoskeletal: No Clubbing, No Cyanosis and No Edema
Neuro: Awake, Alert, Oriented and AO x 3
Psych: Calm
--- NOTE | 2024-08-15 08:53 | PHA.VAN.IN ---
Assessment
- Assessment
Renal Function: Appears elevated from baseline
Maximum Temperature: 98.6
Concomitant Antimicrobials: piperacillin-tazbactam
Plan
- Plan
Initial / Loading Dose: vanc 1500mg (20 mg/kg) pending administration
Maintenance Regimen: dose by level
Monitoring: random 1213 am
Pharmacokinetics Vancomycin I
- -
Patient Age: 53
Patient Sex: Female
Vancomycin Day #: 1
Indication: Bacteremia
Requesting Provider: Dr Coburn
Pertinent Antimicrobial Allergies:
no known allergies
Height / Weight:
Height 5 ft 2 in
Actual Weight 76 kg
Pertinent Past Medical History: Kidney Cancer on chemo
- Vital Signs / Lab Results
Temp Pulse Resp BP Pulse Ox
98.3 F 84 18 117/63 95
08/15/24 08:00 08/15/24 07:10 08/15/24 07:10 08/15/24 06:00 08/15/24 07:10
Lab Results - Hematology
08/13/24 08/14/24 08/15/24
11:30 04:21 03:43
WBC 9.1 7.2 6.7
Lab Results - Chemistry
08/13/24 08/14/24 08/15/24
11:30 04:21 03:43
BUN 49 H 58 H 65 H
Creatinine 7.6 H* 6.6 H* 7.3 H*
Estimated Creat Clear 8 9 8
Albumin 4.0 2.7 L 2.9 L
08/13/24 08/13/24 08/14/24
12:35 18:10 01:16
Lactic Acid 6.0 H* 3.8 H 2.4 H
08/14/24
04:21
Lactic Acid 2.0
Lab Results - Urine
08/13/24
13:32
Urine Nitrite (Reflex) Negative
Leukocyte Esterase Rfl Negative
Urine WBC (Reflex) 0-2
Ur Squamous Epith Cells 11-15
Microbiology Results
08/13/24 13:32 Blood Culture - Preliminary
Blood/Venous Positive culture in progress
Gram Stain - Preliminary
08/13/24 11:30 Influenza Types A & B (CHRISTY) - Final
Nasal Swab Negative for Influenza A & B, NAAT
Negative results must be combined with clinical observations
and patient history.
Nucleic Acid Amplification test (NAAT)performed on the
[employer] NOW platform.
[2024-08-15] MEDS: ZOSYN 50 IV (09:20)
[2024-08-15] MEDS: LIPITOR 80 MG PO (09:20)
[2024-08-15] MEDS: TUMS CHEWABLE TABLET 200 MG PO (09:20)
--- NOTE | 2024-08-15 09:20 | W.PN.NEPH.PH ---
Today's Communication / Plan
-
IVF
Assessment/Plan
-
Impression:
Nausea vomiting abdominal pain
Acute kidney injury 7.6)
Chronic kidney disease stage IIIb with baseline creatinine 1.6
Gapped metabolic acidosis with associated lactic acidosis (24)
Hypertension
Diabetes
History of rheumatoid arthritis
History of obstructive uropathy with history of ureter stent in 2022
Right nephrectomy in 2007
Left partial nephrectomy in 2021
strep bacteremia
Plan:
continue IVF today
follow BMP
no emergent HD needs today
probably ATN
maintain frazier today
still with [facility]. If Cr worsens can check retrograde pyelogram
critical care time 31 minutes
-
-
Date of Service: August 15, 2024
CC / HPI / ROS
-
Chief Complaint:
YOLIE
History of Present Illness:
YOLIE/Cr up to 7.3
Na low at 134
lactate improving
BP remains low stable
critically ill in ICU
frazier, in, nonoliguric
Review of Systems:
no CP/SOB
Labs
-
Labs:
WBC 6.7 10^3/uL (4.8-10.8) 08/15/24 03:43
RBC 3.87 10^6/uL (4.20-5.40) L 08/15/24 03:43
Hgb 12.0 g/dL (12.0-16.0) 08/15/24 03:43
Hct 36.2 % (37.0-47.0) L 08/15/24 03:43
Plt Count 211 10^3/uL (130-400) 08/15/24 03:43
Sodium 134 mmol/L (135-145) L 08/15/24 03:43
Potassium 3.9 mmol/L (3.5-5.1) 08/15/24 03:43
Chloride 92 mmol/L (98-107) L 08/15/24 03:43
Carbon Dioxide 27 mmol/L (22-30) 08/15/24 03:43
BUN 65 mg/dl (7-17) H 08/15/24 03:43
Creatinine 7.3 mg/dL (0.6-1.0) H* 08/15/24 03:43
eGFR 6.16 08/15/24 03:43
Glucose 134 mg/dl (70-99) H 08/15/24 03:43
Calcium 9.5 mg/dl (8.4-10.2) 08/15/24 03:43
Albumin 2.9 g/dl (3.5-5.0) L 08/15/24 03:43
Physical Exam
-
Vital Signs:
Vital Signs
Temp Pulse Resp BP Pulse Ox
98.3 F 84 18 117/63 95
08/15/24 08:00 08/15/24 07:10 08/15/24 07:10 08/15/24 06:00 08/15/24 07:10
Cardiovascular:: Regular rate and rhythm
Respiratory:: Bilateral: Coarse
Lung Excursion:: Normal
Abdomen:: Nontender and Soft
Bowel Sounds:: Normal
Extremity Edema:: None: Bilateral:
[2024-08-15] MEDS: DELTASONE 20 MG PO (09:21)
[2024-08-15] MEDS: HEPARIN 5000 UNITS SC ×2 (09:21→19:43)
[2024-08-15] MEDS: OCEAN, SALINE MIST 1 SPRAYS NASAL (09:38)
[2024-08-15] MEDS: VANCOCIN 530 MG IV (10:01)
[2024-08-15] MEDS: NSS 500 IV (10:06)
--- NOTE | 2024-08-15 10:31 | CON.MD ---
Consultation - Medical
-
see dictated note
pt wih hx of met RCC- followed at - s/p right nephrectomy and partial left
also hx of stones- with left ureteroscopy and stent in 2022
admitted with ARF/septic appearing picture
ct scan did not show any obvious hydro/ stable post surgical renal change in left kidney
her cr remains elevated- but is making increasing volumes of urine with medical treatment
ucx shows strep- 1 blood cx now +
reviewed films and discussed with pt and nephrology
in terms of dorene-renal left kidney finding- this appears chronic and not a course of infx- this was also discussed on admit with IR and they did not think it appeared to be an abscess or needed drainage
in terms of ARF- no sig hydro- pt is making urine arguing against an obstructed solitary kidney- discussed possible cysto/retrograde and stent with pt and nephrology- for now elected to observe- for any worsening renal parameters- would consider
--- NOTE | 2024-08-15 10:48 | PTCARENOTE ---
pt aaox3. states having some heartburn. made aware. ivf bolus given as ordered. ivf running as ordered. freddie in place.
[2024-08-15] MEDS: NSS 1000 IV ×2 (11:58→23:25)
[2024-08-15 12:30] LABS: Glucose - Point of Care 182 mg/dl (70-99)
[2024-08-15] MEDS: NOVOLOG FLEXPEN-MODERATE RESISTANCE 1 UNITS SC (13:01)
--- NOTE | 2024-08-15 15:26 | W.PN.UPDATE ---
Update Note
Progress Note Update
Probable vegetations on aortic valve - ID to review
Ureteral stent most likely on Sat if kidney function will not start to improve
--- NOTE | 2024-08-15 15:34 | CON.ID ---
Consultation
-
Date/Time Consultation Requested: 08/15/24 15:33
Date/Time Consultation Performed: 08/15/24 15:35
Requesting Provider: Dr Coburn
Performing Provider: Dr Silver
Reason for Consultation: bacteremia with possible aortic vegetations
Chief Complaint / Past History
Chief Complaint
left flank pain, n/v
History of Present Illness
Ms Garvin is a 53 year old female with history of RCC s/p R nephrectomy and partial L nephrectomy with mets to the liver currently between treatment regimens, CKD with Cr 1.6, RA on rinvoq who presented here 08/13 for L flank pain, poor urine
output, nausea, vomiting and abdominal pain. No fevers or dysuria. Reports no chronic fevers. No recent dental work - sees her dentist regularly and next visit in september. No dental pain. No rashes or wounds. Has never been told that she has
bacteremia at another insititution, never had a colonoscopy. Has been on rinvoq for about 3 years and still sometimes requires higher doses of the drugs when ill (adrenal insufficiency?) no recent flares. She has a replaced L hip but no history of
infection there. No new back pain or changes in her vision. Has chronic back pain that was diagnosed as being related to two compression fractures.
Since arrival here she has been afebrile, bp stable, wbc on arrival 9.1 now 6.7, hgb 12, plt 211, L shift is noted, cr on arrival 7.6 (baseline 1.6) today 7.3, na 134, chloride 92, co2 initially 13 now 27, lactic acid initially 6 resolved to 2.0, t
bili now 0.6, ast 40, alt 35, alk phos 123, 08/13 ua no pyuria and 11-15 squamous cells, covid ag neg, 08/13 CT a/p without contrast: liver mets, 3.6 cm low attenuation lesion in the L kidney, prominent L perirenal and periureteral stranding -
possibly chronic, urology also reviewed CT scan and commented that stranding appears chronic - urology also discussed with IR earlier this admission and report no concern for abscess, CXR: no infiltrates, urine culture 40K strep, single set of blood
cultures 08/13 with gpcs in the anaerobic bottle, a single set of blood cultures was sent today, patient is currently on vancomycin and zosyn, note that patient is on steroids for wheezing on clinical exam, ID is consulted for assistance with
management.
Past History
Additional Past Medical History:
Renal cell carcinoma with history of right nephrectomy in 2018 and left partial nephrectomy in 2021 Hypertension CKD stage IIIb with baseline creatinine of 1.6 History of nephrolithiasis requiring ureter stent in 2022 Diabetes Hypothyroidism
Hyperlipidemia Rheumatoid arthritis)
Renal cell carcinoma with history of right nephrectomy in 2018 and left partial nephrectomy in 2021
Hypertension
CKD stage IIIb with baseline creatinine of 1.6
History of nephrolithiasis requiring ureter stent in 2022
Diabetes, insulin dependent
Hypothyroidism
Hyperlipidemia
Rheumatoid arthritis
Additional Past Surgical History:
L hip replacement, Tonsilectomy
Allergy History:
No Known Allergies Allergy (Verified 08/13/24 10:05)
Medications Reviewed: Yes
Social History
Tobacco: Non-Smoker (however extensive second hand smoke exposure as a child)
Alcohol: None
Personal: Single
Family History
Family History: Not Pertinent
Review of Systems
Review of Systems
General: Negative Fever
All systems: All other systems were reviewed and were negative (except as listed above)
Vital Signs
Temp Pulse Resp BP Pulse Ox
98.4 F 84 16 107/85 96
08/15/24 15:17 08/15/24 15:22 08/15/24 15:22 08/15/24 13:00 08/15/24 15:22
Physical Exam
Physical Exam
Constitutional: No Acute Distress and Chronically Ill
Cardiovascular: Regular Rate and S1/S2; Negative Murmur or Rub
Pulmonary: Clear and Symmetric; Negative Wheezes, Rales or Rhonchi
Gastrointestinal: Soft, Non Tender, Non Distended and Normal Bowel Sounds
Genito-Urinary: Negative Suprapubic Tenderness
Extremities: Negative Splinter Hemorrhage or Janeway Lesions
Skin: Warm and Dry; Negative Rash or Jaundice
Neurological: Awake
Lab / Diagnostic Study Results
08/15/24 03:43
08/15/24 03:43
Abs Immat Gran (auto) 0.0 10^3/uL (0-0.05) 08/15/24 03:43
Absolute Neuts (auto) 6.0 10^3/uL (1.4-6.5) 08/15/24 03:43
Absolute Lymphs (auto) 0.2 10^3/uL (1.2-3.4) L 08/15/24 03:43
Absolute Monos (auto) 0.5 10^3/uL (0.1-0.6) 08/15/24 03:43
Absolute Basos (auto) 0.0 10^3/uL (0-0.2) 08/15/24 03:43
Immature Gran % 0.5 % (0-0.5) 08/15/24 03:43
Neutrophils % 89.8 % (42.2-75.2) H 08/15/24 03:43
Lymphocytes % 2.4 % (20.5-51.1) L 08/15/24 03:43
Monocytes % 7.1 % (1.7-9.3) 08/15/24 03:43
Eosinophils % 0.0 % (0-6) 08/15/24 03:43
Basophils % 0.2 % (0-2) 08/15/24 03:43
Lactic Acid 2.0 mmol/L (0.7-2.0) 08/14/24 04:21
Ur Squamous Epith Cells 11-15 /LPF (Few) 08/13/24 13:32
Microbiology Results
Micro:
08/15/24 10:12 Blood Culture - Pending
Blood/Venous
08/13/24 13:32 Blood Culture - Preliminary
Blood/Venous Positive culture in progress
Gram Stain - Preliminary
08/13/24 11:30 Influenza Types A & B (CHRISTY) - Final
Nasal Swab Negative for Influenza A & B, NAAT
Negative results must be combined with clinical observations
and patient history.
Nucleic Acid Amplification test (NAAT)performed on the
[employer] platform.
Assessment / Plan
Gram Positive Bacteremia - possibly an anaerobe
Likely Endocarditis
Immunosuppression on rinvoq
YOLIE on CKD
- two sets of blood cultures q48 hours until blood cultures persistently negative
- (a single set of blood cultures is only about 70% sensitive for bacteremia, two sets are 90% sensitive)
- UA no pyuria and 40K strep - my be descending infection (from bacteremia) or separate, unrelated bacteria
- TTE - likely mobile vegetation on MV and possibly AV - SHIVANI is planned
- note urology comments that inflammatory stranding appears chronic
- continue vancomcyin
- start unasyn stop zosyn pending ID from the blood culture
- hold rinvoq while on treatment for possible endocarditis
- picc can be placed when blood cultures are no growth at 48 hrs
Note extensive second hand smoke exposure as a child
--- NOTE | 2024-08-15 15:49 | W.PN.UPDATE ---
Update Note
Progress Note Update
Please see echo report
Patient seen and examined
Discussed findings with primary team by phone (Dr. Coburn)
Probable vegetation on the noncoronary cusp of the aortic valve seen in complementary views although not diagnostic with transthoracic echo
She has gram-positive bacteremia as well as urinary tract culture demonstrating strep species. Will plan definitive SHIVANI on Monday as she still has acute renal insufficiency with a creatinine of 7.3 today. I would be somewhat reticent to give her
anesthetic tomorrow with a rising creatinine due to presumed electrolyte shifts. As such with evaluation by consultants and initiation of broad-spectrum antibiotics would plan for Monday.
Please see full note to follow from our team
--- NOTE | 2024-08-15 15:58 | CON.CAR ---
Addendum entered and electronically signed by Baldev Bhardwaj MD 08/16/24 09:32:
see separate update note from yesterday reflecting my care and plan
we will follow
Original Note:
Consultation
Consultation Request
Date/Time Consultation Requested: 08/15/24
Date/Time Consultation Performed: 08/15/24
Requesting Provider: Dr. Coburn
Performing Provider: Dr. Bhardwaj
Reason for Consultation: Abnormal echo, evaluation for SHIVANI
Medical History
-
History of Present Illness:
Patient came to ER on 08/13/2024 with nausea vomiting and some diarrhea, she was admitted with YOLIE and cardiology is now consulted for an abnormal echo. Patient has a history of renal cell carcinoma with a previous right nephrectomy in 2017 and
no chemotherapy or radiation at that time. Patient then recurred with renal cell carcinoma in her solitary left kidney in 2021 and had a partial left nephrectomy at that time. Patient has CKD 3. Patient is following at [facility] and had a recent
change in her chemotherapy regimen as it was felt that she was not tolerating the standard regimen. She had nausea vomiting and abdominal pain starting about 5 days ago and came to ER on 08/13/2024 and was admitted with YOLIE and creatinine up to
7.6. There is also concern for sepsis on admission and blood cultures are now growing gram-positive cocci. Transthoracic echo performed as noted above is concerning for vegetation and cardiology has been consulted. The patient denies any previous
cardiac testing, she does not think she has had a previous echo. She has never seen a search consultant. Patient has been afebrile throughout this admission. Urine culture was positive for strep and blood culture speciation is in process.
PMH:
CKD 3
h/o renal cell carcinoma with previous right nephrectomy and partial left nephrectomy and metastatic liver lesions
chemotherapy with [facility]
DM 2
HTN
Hyperlipidemia
Hypothyroid
RA
Past Medical History
Past Medical History: Other (in HPI)
Past Surgical History: Tonsilectomy and Other (right nephrectomy 2017, left partial nephrectomy 2021)
Social History
Tobacco: Non-Smoker
Alcohol: None
Drug: None
Personal: Single
Living: With Family
Family History
Family History: Reviewed & Not Pertinent
Allergies / Home Medications
Allergy/AdvReac Type Severity Reaction Status Date / Time
No Known Allergies Allergy Verified 08/13/24 10:05
�Medication �Instructions �Recorded �Confirmed �Type
clonidine HCl 0.1 mg tablet 0.1 mg PO BID Blood Pressure 07/12/23 08/13/24 History
insulin glargine U-300 conc 300 20 unit SC HS Diabetes 07/12/23 08/13/24 History
unit/mL (1.5 mL) subcutaneous pen
(Toujeo SoloStar U-300 Insulin)
insulin lispro 200 unit/mL (3 mL) 1 sliding scale dose SC 07/12/23 08/13/24 History
subcutaneous pen (Humalog KwikPen DIRECTED Diabetes
U-200 Insulin)
metformin 500 mg tablet,extended 1,000 mg PO BID@0800,1700 Diabetes 07/12/23 08/13/24 History
release 24hr (osmotic)
simethicone 80 mg chewable tablet 80 mg PO QIDPRN PRN gas 07/12/23 08/13/24 History
therapeutic multivitamin 1 tab PO DAILY Supplement 07/12/23 08/13/24 History
upadacitinib 15 mg tablet,extended 15 mg PO HS rheumatoid arthritis 07/12/23 08/13/24 History
release 24 hr (Rinvoq)
amlodipine 10 mg-olmesartan 40 mg 1 tab PO DAILY Blood Pressure 08/13/24 08/13/24 History
tablet
atorvastatin 80 mg tablet 80 mg PO DAILY High Cholesterol 08/13/24 08/13/24 History
levothyroxine 88 mcg tablet 88 mcg PO DAILY Thyroid 08/13/24 08/13/24 History
ondansetron HCl 4 mg tablet 4 mg PO Q8HPRN PRN nausea 08/13/24 08/13/24 History
prednisone 5 mg tablet 5 mg PO DAILY Anti-Inflammatory 08/13/24 08/13/24 History
Review of Systems
-
History Source: Patient
All other systems: Negative unless noted
Physical Exam
Vital Signs
Temp Pulse Resp BP Pulse Ox
98.4 F 84 16 107/85 96
08/15/24 15:17 08/15/24 15:22 08/15/24 15:22 08/15/24 13:00 08/15/24 15:22
GEN: NAD. AAOx3
HEENT: EOMI, MMM
LUNGS: RA. CTA B/L, no wheezes or rales
CV: SR on tele. Reg, S1/S2, / syst LSB
ABD: soft, BS+, NT, ND
EXT: No clubbing, cyanosis, lesions or edema B/L
NEURO: Gross non-focal
SKIN: Warm, dry and pink. No rash
Lab Results
08/15/24 03:43
08/15/24 03:43
Impression / Plan
-
PCP: Dr. Montes
Cardiology: None
[facility] nurse navigator: Zandra [phone] Cain's cell # is [phone]
Impression:
Admitted with N/V/D and YOLIE 08/13/24
YOLIE on CKD 3
Bacteremia
Abnormal echo with possible vegetations
h/o renal cell carcinoma with previous right nephrectomy and partial left nephrectomy and metastatic liver lesions
chemotherapy with [facility]
DM 2
HTN
Hyperlipidemia
Hypothyroid
RA
Echo 08/15/24: EF 55%, normal diastolic function, in short axis chamber view there is a mobile vegetation on the septal aspect of the MV which could possibly be mobile from the LV outflow tract, thickened noncoronary cusp only seen in some views,
probable vegetation on the noncoronary cusp which appears slightly mobile and no aortic regurgitation
Plan:
-Patient came to ER on 08/13/2024 with nausea vomiting and some diarrhea, she was admitted with YOLIE and cardiology is now consulted for an abnormal echo. Patient has a history of renal cell carcinoma with a previous right nephrectomy in 2017 and
no chemotherapy or radiation at that time. Patient then recurred with renal cell carcinoma in her solitary left kidney in 2021 and had a partial left nephrectomy at that time. Patient has CKD 3. Patient is following at [facility] and had a recent
change in her chemotherapy regimen as it was felt that she was not tolerating the standard regimen. She had nausea vomiting and abdominal pain starting about 5 days ago and came to ER on 08/13/2024 and was admitted with YOLIE and creatinine up to
7.6. There is also concern for sepsis on admission and blood cultures are now growing gram-positive cocci. Transthoracic echo performed as noted above is concerning for vegetation and cardiology has been consulted. The patient denies any previous
cardiac testing, she does not think she has had a previous echo. She has never seen a search consultant. Patient has been afebrile throughout this admission. Urine culture was positive for strep and blood culture speciation is in process.
-ECG reviewed by me and showed SR without acute ischemic changes.
-Talked with patient and reviewed echo findings along with positive blood cultures and concern for endocarditis. We reviewed the echo findings and reviewed that a SHIVANI could provide additional information. We discussed SHIVANI procedure. Patient is
agreeable.
-Will schedule SHIVANI for 08/19/24.
-Minimal improvement in Cre since admission, will avoid anesthesia.
-Ampicillin and vancomycin ordered.
-Patient asked me to call her nurse navigator at [facility], but could only give me
[2024-08-15] MEDS: UNASYN IV (16:21)
[2024-08-15 17:13] LABS: Glucose - Point of Care 216 mg/dl (70-99)
[2024-08-15] MEDS: NOVOLOG FLEXPEN-MODERATE RESISTANCE 3 UNITS SC (17:47)
[2024-08-15 21:27] LABS: Hepatitis C Antibody Negative (Negative)
[2024-08-15 21:54] LABS: Glucose - Point of Care 212 mg/dl (70-99)
[2024-08-15] MEDS: LANTUS 0.08 UNITS SC (22:20)
[2024-08-16] VITALS (12 sets, daily range): BP systolic 113–147; BP diastolic 66–95; BMI 30.8
[2024-08-16] MEDS: SYNTHROID 88 MCG PO (04:32)
[2024-08-16 05:08] LABS: % Immature Granulocytes 0.4 % (0-0.5); % Lymphocytes 1.8 % (20.5-51.1); % Monocytes 8.2 % (1.7-9.3); % Neutrophils 89.6 % (42.2-75.2); Absolute Lymphocytes 0.1 10^3/uL (1.2-3.4); Absolute Monocytes 0.6 10^3/uL (0.1-0.6); Hematocrit 35.7 % (37.0-47.0); Mean Corp Hgb Conc. 33.6 g/dL (33.0-37.0); Mean Corpuscular Hgb 31.3 pg (27.0-31.0); Mean Platelet Volume 10.4 fL (7.4-10.4); Nucleated Red Blood Cells % 0 %; Platelet Count 205 10^3/uL (130-400); Red Blood Cell Count 3.84 10^6/uL (4.20-5.40); Red Cell Dist. Width 16.3 % (11.5-14.5); White Blood Cell Count 6.7 10^3/uL (4.8-10.8)
--- NOTE | 2024-08-16 05:23 | PTCARENOTE ---
Pt slept well through night. NPO for possible procedure today. Assessment as charted.
[2024-08-16 05:36] LABS: Vancomycin Random 18.4 ug/ml
[2024-08-16 06:01] LABS: ALT (SGPT) 40 U/L (0-35); AST (SGOT) 50 U/L (14-36); Albumin 2.8 g/dl (3.5-5.0); Alkaline Phosphatase 166 U/L (38-126); Blood Urea Nitrogen 61 mg/dl (7-17); Carbon Dioxide 26 mmol/L (22-30); Chloride 99 mmol/L (98-107); Estimated Creatinine Clearance 9 ml/min; Glucose 152 mg/dl (70-99); Potassium 3.6 mmol/L (3.5-5.1); Sodium 138 mmol/L (135-145); Total Bilirubin 0.5 mg/dl (0.2-1.3); eGFR 6.48
[2024-08-16] MEDS: TUMS CHEWABLE TABLET 200 MG PO (06:37)
--- NOTE | 2024-08-16 07:03 | W.PN.URO.CBU ---
Today's Communication / Plan
-
monitor UO and CR
continue frazier
Assessment / Plan
-
met renal cell ca
solitary left kidney
ARF
? sepsis
pt's f/u blood cx's pending
her urine output has made a sig improvement- ? if this is medical or possibly passage of some ureteral gravel that was obstructing kidney
given high UO- do not feel operative intervention is indicated at this time- but will monitor closely and if cr does not improve/UO drops- would again consider cysto and retrograde
would continue frazier at this time
Diagnosis
-
Date of Service: August 16, 2024
-
Patient Diagnosis:
renal cell ca- metastatic
hx of right nx and partial left nx
? sepsis
ARF
Subjective
-
pt feeling better- c/o only on congestion
UO has made a dramatic improvement with high output
ct remains elevated at 7
Objective
-
Vital Signs
Temp Pulse Resp BP Pulse Ox
98.5 F 86 11 137/75 97
08/16/24 04:00 08/16/24 06:00 08/16/24 06:00 08/16/24 06:00 08/16/24 06:00
Intake and Output
08/15/24 08/16/24 08/17/24
06:59 06:59 06:59
Intake Total 2079 / 2179 3900 / 3900
Output Total 875 / 875 1750 / 1750
Balance 1205 / 1305 2150 / 2150
Intake:
Oral fluids 550 / 550
IV fluids (Total) 2079 2300 / 2300
IVF 480 / 480
Nss 1,000 ml @ 100 mls/hr IV . 1100 / 1200 2300 / 2300
Q10H VIK Rx#:[id number]
Sterile Water For Injection 450 / 450
1000 ml 1,000 ml @ 150 mls/hr
IV .Q7H40M VIK with Sodium
Bicarbonate 150 Meq Rx#:
[id number]
Zosyn 50 / 50
IV piggybacks 1050 / 1050
Output:
Urine, Frazier 875 / 875 1750 / 1750
Laboratory Results
08/16/24 04:31
08/16/24 04:31
Review of Systems
-
Constitutional: Fatigue
Respiratory: No Symptoms
Cardiac: No Symptoms
Abdomen/GI: No Symptoms
: Other (frazier)
Physical Exam
-
General - no acute distress
Abdomen - soft, non-tender
Genitalia - frazier
[2024-08-16] MEDS: DUONEB 3 ML INH ×4 (07:08→18:14)
[2024-08-16 08:21] LABS: Glucose - Point of Care 132 mg/dl (70-99)
[2024-08-16] MEDS: NOVOLOG FLEXPEN-MODERATE RESISTANCE SC ×2 (08:29→12:03)
--- NOTE | 2024-08-16 08:30 | PTCARENOTE ---
Patient received this am lying still in bed with eyes closed, respirations non labored. She rouses easily to name called. She has essential tremors. A&O x 4. She states that she has generalized abdominal discomfort but mostly located on the left
side, 11/11. Declines offer of pain medication. She c/o constipation. Randle catheter patent draining clear yellow urine. Pulses all 4 extremities palpable, no edema. S1S2 regular with soft murmur. SR with 1st degree AVB on CM. Noted saturating 88%
on RA. Oxygen at 2L/nc replaced. Some scattered small areas of ecchymosis noted on extremities. She is currently NPO for pending Abdominal U/S. Left hand SL flushes without difficulty. Right AC IV site WDL with IVF infusing.
[2024-08-16] MEDS: LIPITOR 80 MG PO (08:31)
[2024-08-16] MEDS: HEPARIN 5000 UNITS SC ×2 (08:31→19:42)
[2024-08-16] MEDS: DELTASONE 20 MG PO (08:32)
--- NOTE | 2024-08-16 08:46 | PHA.VAN.FU ---
Vancomycin Assessment / Plan
- Assessment
Renal Function: SCR Increasing
WBC's are: WNL
In the past 24 hrs, patient has been: Afebrile
Concomitant Antimicrobials: ampicillin-sulbactam
- Assessment - Therapeutic Drug Monitoring
Random Level: 18.4 ~18 hours post 1500mg dose (20 mg/kg)
- Dosing Plan
Continue: to dose by level
Dosing by Level: Hold off on dosing today
- Monitoring Plan
Random Level: 12/14 am
- Follow Up
Pharmacy will continue to follow.
Vancomycin Follow UP
- -
Patient Age: 53
Patient Sex: Female
Vancomycin Day #: 2
Indication: Bacteremia
Requesting Provider: Dr Coburn/ Dr Silver
Pertinent Antimicrobial Allergies:
no known allergies
Height / Weight:
Height 5 ft 2 in
Actual Weight 76.2 kg
Pertinent Past Medical History: Kidney Cancer on chemo
- Vital Signs / Lab Results
Temp Pulse Resp BP Pulse Ox
98.1 F 83 18 137/75 98
08/16/24 08:16 08/16/24 07:08 08/16/24 07:08 08/16/24 06:00 08/16/24 07:08
Lab Results - Hematology
08/13/24 08/14/24 08/15/24
11:30 04:21 03:43
WBC 9.1 7.2 6.7
08/16/24
04:31
WBC 6.7
Lab Results - Chemistry
08/13/24 08/14/24 08/15/24
11:30 04:21 03:43
BUN 49 H 58 H 65 H
Creatinine 7.6 H* 6.6 H* 7.3 H*
Estimated Creat Clear 8 9 8
Albumin 4.0 2.7 L 2.9 L
08/16/24
04:31
BUN 61 H
Creatinine 7.0 H*
Estimated Creat Clear 9
Albumin 2.8 L
08/13/24 08/13/24 08/14/24
12:35 18:10 01:16
Lactic Acid 6.0 H* 3.8 H 2.4 H
08/14/24
04:21
Lactic Acid 2.0
Microbiology Results
08/13/24 13:32 Blood Culture - Preliminary
Blood/Venous Coagulase neg. staphylococcus
Additional testing on request
Gram Stain - Preliminary
Therapeutic Drug Monitoring
Random Vancomycin 18.4 ug/ml 08/16/24 04:31
--- NOTE | 2024-08-16 09:15 | W.PN.ID1 ---
Date of Service
Date of Service: August 16, 2024
Today's Communication
continue vanc and unasyn
- unfortunately only a single set of blood cultures was done on 08/13, it is not possible to tell if the CONS that grew is a true pathogen and the cause of the endocarditis or a contaminant based on these results at this time. If there is a
persistently positive culture with CONS then we would rule in CONS as the cause of endocarditis. Unfortunately this immunosuppressed patient was also started on broad spectrum therapy before cultures were repeated and at this point they may be
falsely negative. Additionally, culture negative and marantic endocarditis also remain on the differential.
- lab will get ID and sensitivities on the CONS
Assessment / Plan
Likely Endocarditis
Immunosuppression on rinvoq
YOLIE on CKD
- unfortunately only a single set of blood cultures was done on 08/13, it is not possible to tell if the CONS that grew is a true pathogen and the cause of the endocarditis or a contaminant based on these results at this time. If there is a
persistently positive culture with CONS then we would rule in CONS as the cause of endocarditis. Unfortunately this immunosuppressed patient was also started on broad spectrum therapy before cultures were repeated and at this point they may be
falsely negative. Additionally, culture negative and marantic endocarditis also remain on the differential.
- lab will get ID and sensitivities on the CONS
- two sets of blood cultures q48 hours until blood cultures persistently negative
- UA no pyuria and *correction* urine did not reflex to culture. The 40K strep was from last month and most likely not related.
- given marked increase in UOP repeat UA reflex to culture
- TTE - likely mobile vegetation on MV and possibly AV
- SHIVANI is planned for monday
- has never had a colonoscopy - may be a consideration for outpatient
- coxiella and bartonella serologies sent, t whipplei serology not available and PCR would likely be negative with previous antibiotic exposure
- note urology and radiology comments that inflammatory stranding around kidney on CT appears chronic
- follow up ASO titers and complements sent by nephrology for recent urine culture with strep, YOLIE
- continue vancomycin
- continue unasyn for now
- hold rinvoq while on treatment for possible endocarditis
- picc when approaching discharge
Note extensive second hand smoke exposure as a child
Chief Complaint
-: Other (possible endocarditis)
Subjective / Review of Systems
remains afebrile
bp stable
tolerating current therapies
doesnt spend time around farm animals, rarely around cats - no cat scratches she can recall
no history of phlebitis
L hip without swelling or tenderness
Vital Signs / Physical Exam
Vital Signs
Vital Signs
Temp Pulse Resp BP Pulse Ox
98.1 F 90 17 144/70 97
08/16/24 08:16 08/16/24 09:00 08/16/24 09:00 08/16/24 08:00 08/16/24 09:00
Physical Exam
Constitutional: No Acute Distress
Cardiovascular: Regular Rate and S1/S2; Negative Murmur or Rub
Pulmonary: Clear and Symmetric; Negative Wheezes or Rales
Gastrointestinal: Soft, Non Tender, Non Distended and Normal Bowel Sounds
Skin: Warm and Dry; Negative Rash or Jaundice
Objective Data
Lab Data
Lab Results
08/16/24 04:31
08/16/24 04:31
Estimated Creat Clear 9 ml/min 08/16/24 04:31
Lactic Acid 2.0 mmol/L (0.7-2.0) 08/14/24 04:21
Total Bilirubin 0.5 mg/dl (0.2-1.3) 08/16/24 04:31
AST 50 U/L (14-36) H 08/16/24 04:31
ALT 40 U/L (0-35) H 08/16/24 04:31
Alkaline Phosphatase 166 U/L (38-126) H 08/16/24 04:31
Most recent labs reviewed.
L shift persists
Micro Results:
08/13/24 13:32 Blood Culture - Preliminary
Blood/Venous Coagulase neg. staphylococcus
Additional testing on request
Gram Stain - Preliminary
08/15/24 15:54 Blood Culture - Pending
Blood/Venous
08/15/24 10:12 Blood Culture - Pending
Blood/Venous
08/13/24 11:30 Influenza Types A & B (CHRISTY) - Final
Nasal Swab Negative for Influenza A & B, NAAT
Negative results must be combined with clinical observations
and patient history.
Nucleic Acid Amplification test (NAAT)performed on the
[employer] platform.
[2024-08-16] MEDS: NSS 1000 IV ×2 (09:21→22:08)
--- NOTE | 2024-08-16 09:25 | W.PN.NEPH.PH ---
Today's Communication / Plan
-
Observe on IV fluids
Follow BMP
No acute dialysis
Check ASO and complements
Assessment/Plan
-
Impression:
Nausea vomiting abdominal pain
Acute kidney injury 7.6)
Chronic kidney disease stage IIIb with baseline creatinine 1.6
Gapped metabolic acidosis with associated lactic acidosis (24)
Hypertension
Diabetes
History of rheumatoid arthritis
History of obstructive uropathy with history of ureter stent in 2022
Right nephrectomy in 2007
Left partial nephrectomy in 2021
strep bacteremia with likely IE
Plan:
YOLIE persists with creatinine of 7 although remains grossly nonoliguric at 1750
continue IVF today
follow BMP
no emergent HD needs today
probably ATN but I am unsure of the etiology
maintain frazier today
Antibiotics to be renally dosed for strep bacteremia
still with UOP. If Cr worsens can check retrograde pyelogram, this was previously discussed with urology although I agree that if significant obstruction was present I am unsure why she has such good urine output
Dialysis need may be approaching, discussed with patient
for SHIVANI monday
Will check ASO and complement levels for possibly infectious mediated GN
critical care time 31 minutes
-
-
Date of Service: August 16, 2024
CC / HPI / ROS
-
Chief Complaint:
YOLIE
History of Present Illness:
YOLIE/Cr up to 7.
Naup to 130
lactate improving
Hemodynamically stay
critically ill in ICU
frazier, in, nonoliguric
Review of Systems:
no CP/SOB
Labs
-
Labs:
WBC 6.7 10^3/uL (4.8-10.8) 08/16/24 04:31
RBC 3.84 10^6/uL (4.20-5.40) L 08/16/24 04:31
Hgb 12.0 g/dL (12.0-16.0) 08/16/24 04:31
Hct 35.7 % (37.0-47.0) L 08/16/24 04:31
Plt Count 205 10^3/uL (130-400) 08/16/24 04:31
Sodium 138 mmol/L (135-145) 08/16/24 04:31
Potassium 3.6 mmol/L (3.5-5.1) 08/16/24 04:31
Chloride 99 mmol/L (98-107) 08/16/24 04:31
Carbon Dioxide 26 mmol/L (22-30) 08/16/24 04:31
BUN 61 mg/dl (7-17) H 08/16/24 04:31
Creatinine 7.0 mg/dL (0.6-1.0) H* 08/16/24 04:31
eGFR 6.48 08/16/24 04:31
Glucose 152 mg/dl (70-99) H 08/16/24 04:31
Calcium 9.0 mg/dl (8.4-10.2) 08/16/24 04:31
Albumin 2.8 g/dl (3.5-5.0) L 08/16/24 04:31
Physical Exam
-
Vital Signs:
Vital Signs
Temp Pulse Resp BP Pulse Ox
98.1 F 90 17 144/70 97
08/16/24 08:16 08/16/24 09:00 08/16/24 09:00 08/16/24 08:00 08/16/24 09:00
Cardiovascular:: Regular rate and rhythm
Respiratory:: Bilateral: Coarse
Lung Excursion:: Normal
Abdomen:: Nontender and Soft
Bowel Sounds:: Normal
Extremity Edema:: None: Bilateral:
--- NOTE | 2024-08-16 10:30 | SUR.OPER ---
Abdominal U/S complete. Orders received to resume diet. Breakfast ordered by patient.
[2024-08-16 11:16] LABS: Glucose - Point of Care 137 mg/dl (70-99)
--- NOTE | 2024-08-16 12:00 | PTCARENOTE ---
Patient provided prn Miralax and Senokot for constipation. IVF decreased to 80cc/hr per order. UA with reflex to culture collected per order. OOB to chair with SBA, BRP. Unable to have BM, passed flatus. Saturation continues to drop on RA, 88-89%.
Oxygen replaced at 2L. DB&C encouraged.
[2024-08-16] MEDS: MIRALAX 17 GRAMS PO (12:04)
[2024-08-16] MEDS: SENOKOT-S 1 TABLET PO (12:04)
--- NOTE | 2024-08-16 12:21 | W.PN.HOSP.TC ---
Today's Communication/Plan
-
cont Abx
cont IVF
pending further mgmt by Urology/Nephrology and card
Assessment / Plan
Assessment / Plan
53yo F with PMHX of RCC s/p R nephrectomy and partial L nephrectomy, CKD stage 3, Hx of nephrolithiasis, recent chemotherapy cycle that was terminated due to worsening nausea came with nausea, vomiting and minimal diarrhea over past 2 days prior to
admission, managed for complicated UTI with nephrolithiasis, bacteremia, YOLIE and also mild hypoxemia, found aortic vegetations with positive Bcx concerning for endocarditis so SHIVANI pending for 08/19/[address] Cain ([facility] oncologist) [phone]
A/P:
#UTI, complicated with non-obstructive nephrolithiasis and mild dilation of the L upper calyces
#Nausea most likely intolerance of the recent chemo
Urology consult: monitoring, defered stent placement with no clear signs of obstruction causing YOLIE
Urine not indicative of infection
Zofran
#Bacteremia with concern for Endocarditis
Coag,neg staph in 1 set (unfortunately only 1 done on admission)
Hx of strep. UTI
with ill defined mass L kidney - stable, discussed drain with IRAD on admission, at this time not indicated
Repeat Bcx
Vanco/Unasyn
UA neg
Echo: with Probable vegetation on the noncoronary cusp of the aortic valve and concern for mitral valve vegetations
Cardiology scheduled SHIVANI for 08/19/24
#Acute hypoxic insufficiency
#Atelectasis
R hemidiaphragm elevation
wheezing on exam
Bronchodilators
Increase steroids
Incentive spirometry
#YOLIE on CKD stage 3, non-oliguric
most likely hypovolemic 2/2 dehydration
frazier
serial BMP
Nephrology: ASO and complement pending
IVF
#RCC with liver lesions and L kidney mass and lithic osseous mets on L humeral head
cont follow up with [facility] upon d/c
#DJD
tylenol
#DM type 2 with nephropathy
DM diet, accuchecks, Insulin SS
decrease Glargine to 8units
#minimal ALT elevation
#Alk.phos elevation
follow LFT
HepC Ab neg
No CBD dilation and no signs of gall bladder pathology on US
#Anemia of chronic disease
minimal
monitor CBC
#Essential HTN
#HLD
#hypothyroidism
#RA on steroids
Hold Rinvoq
TSH WNL
cont home meds except of BP meds since hypotension 2/2 dehydration
DVT ppx hep
Full code
I have spent at least 59min reviewing chart, test results, communication with consultants and direct patient care
Anticipated Discharge: > 48 hours
Subjective/Interval History
-
Date of Service: August 16, 2024
Objective Data
-
Labs:
Laboratory Results
08/16/24
04:31
WBC 6.7
Hgb 12.0
Hct 35.7 L
Plt Count 205
Sodium 138
Potassium 3.6
Chloride 99
Carbon Dioxide 26
BUN 61 H
Creatinine 7.0 H*
Glucose 152 H
Calcium 9.0
Total Bilirubin 0.5
AST 50 H
ALT 40 H
Alkaline Phosphatase 166 H
Vital Signs:
Vital Signs
Temp Pulse Resp BP Pulse Ox
98.4 F 93 18 144/70 86
08/16/24 12:13 08/16/24 11:14 08/16/24 11:14 08/16/24 08:00 08/16/24 11:14
I&O
08/15/24 08/16/24 08/17/24
06:59 06:59 06:59
Intake Total 2080 / 2180 3900 / 390 360 / 360
Output Total 875 / 875 1750 / 1750
Balance 1205 / 1305 2150 / 2150 360 / 360
Review of Systems
-
History Source: Patient
All other systems: Reviewed and negative
Physical Exam
-
General: No Apparent Distress
HEENT: Normocephalic
Respiratory: Clear to Auscultation
GI: Soft, Nontender and Nondistended
Musculoskeletal: No Clubbing, No Cyanosis and No Edema
Neuro: Awake, Alert, Oriented and AO x 3
Psych: Calm
[2024-08-16 12:41] LABS: Urine Albumin Trace (Neg - Trace); Urine Bilirubin Negative (Negative); Urine Character Clear (Clear); Urine Color Yellow; Urine Glucose 1+ (Negative); Urine Ketone Negative (Negative); Urine Leukocyte Negative (Negative); Urine Nitrite Negative (Negative); Urine Occult Blood 3+ (Negative); Urine Specific Gravity 1.015 (<1.030); Urine Urobilinogen Negative (Neg - 1+)
[2024-08-16 13:33] LABS: Urine Red Blood Cell 26-30 /HPF (0-2)
[2024-08-16 13:35] LABS: Urine Bacteria Few (Negative)
--- NOTE | 2024-08-16 14:09 | CM ---
CM following re: discharge planning.
Reviewed pt's chart, met with pt.
Per pipe finishing supervisor, no emergent HD needs today and dialysis need may be approaching.
Pt lives with 85 year old mother in a 2SH, 2 steps to enter, has supportive brother, has no children. Pt described herself as independent in all areas [employer].
D/C plan: home with anticipated no needs. Will follow up with pipe finishing supervisor regarding possible needs for outpatient HD treatment.
CM will follow with discharge plan updates as hospitalization progresses.
[2024-08-16] MEDS: UNASYN IV (15:50)
[2024-08-16] MEDS: NOVOLOG FLEXPEN-MODERATE RESISTANCE 3 UNITS SC (16:19)
[2024-08-16 16:24] LABS: Glucose - Point of Care 245 mg/dl (70-99)
--- NOTE | 2024-08-16 18:30 | PTCARENOTE ---
Patient assisted back to bed. Gait steady. Tolerated OOB to chair well. Good appetite for dinner.
--- NOTE | 2024-08-16 19:10 | PTCARENOTE ---
Report given verbally to RN assuming careDianelys. Questions answered.
[2024-08-16] MEDS: LANTUS 0.08 UNITS SC (22:08)
[2024-08-16 22:18] LABS: Glucose - Point of Care 249 mg/dl (70-99)
[2024-08-17] VITALS (12 sets, daily range): BP systolic 137–164; BP diastolic 76–99; BMI 31.0
[2024-08-17] MEDS: TUMS CHEWABLE TABLET 200 MG PO ×3 (01:10→22:19)
[2024-08-17] MEDS: SYNTHROID 88 MCG PO (05:01)
[2024-08-17 05:23] LABS: % Basophils 0.1 % (0-2); % Eosinophils 0.1 % (0-6); % Immature Granulocytes 0.4 % (0-0.5); % Lymphocytes 2.1 % (20.5-51.1); % Monocytes 9.7 % (1.7-9.3); % Neutrophils 87.6 % (42.2-75.2); Absolute Lymphocytes 0.2 10^3/uL (1.2-3.4); Absolute Monocytes 0.8 10^3/uL (0.1-0.6); Absolute Neutrophils 6.8 10^3/uL (1.4-6.5); Hematocrit 34.3 % (37.0-47.0); Hemoglobin 11.5 g/dL (12.0-16.0); Mean Corp Hgb Conc. 33.5 g/dL (33.0-37.0); Mean Corpuscular Hgb 30.5 pg (27.0-31.0); Mean Platelet Volume 10.4 fL (7.4-10.4); Nucleated Red Blood Cells % 0 %; Platelet Count 233 10^3/uL (130-400); Red Blood Cell Count 3.77 10^6/uL (4.20-5.40); Red Cell Dist. Width 16.2 % (11.5-14.5); White Blood Cell Count 7.7 10^3/uL (4.8-10.8)
[2024-08-17 05:58] LABS: Vancomycin Random 14.1 ug/ml
[2024-08-17 06:03] LABS: ALT (SGPT) 55 U/L (0-35); AST (SGOT) 88 U/L (14-36); Albumin 3.2 g/dl (3.5-5.0); Alkaline Phosphatase 245 U/L (38-126); Blood Urea Nitrogen 55 mg/dl (7-17); Calcium 9.6 mg/dl (8.4-10.2); Carbon Dioxide 25 mmol/L (22-30); Chloride 102 mmol/L (98-107); Estimated Creatinine Clearance 11 ml/min; Glucose 162 mg/dl (70-99); Potassium 3.3 mmol/L (3.5-5.1); Sodium 141 mmol/L (135-145); Total Bilirubin 0.5 mg/dl (0.2-1.3); Total Protein 5.5 g/dl (6.3-8.2); eGFR 8.47
--- NOTE | 2024-08-17 06:19 | PTCARENOTE ---
Pt slept at intervals during night. Assessment as charted. Ambulated to bathroom for bowel movement with minimal assist.
[2024-08-17] MEDS: DUONEB 3 ML INH (07:45)
[2024-08-17] MEDS: HEPARIN 5000 UNITS SC ×2 (08:05→22:14)
[2024-08-17] MEDS: LIPITOR 80 MG PO (08:05)
[2024-08-17] MEDS: DELTASONE 20 MG PO (08:05)
[2024-08-17] MEDS: KCL 40 MEQ PO (08:05)
--- NOTE | 2024-08-17 08:10 | PTCARENOTE ---
Assumed care of pt at 0715 following shift report. Supervision provided as pt ambulated to BR to attempt to have BM- passing flatus. Denes c/o pain. Requesting TUMs for c/o 'heartburn'- see NOV. Pt sitting up in bedside chair. Physical assessment
completed as documented. Pt's POX 96% on O2 @ 2l/min-- placed on RA w/ POx down to 89%. O2 replaced w/ POx improved to 96%. Pt denies any SOB. Call ellison w/in pt reach and safe environment maintained.
[2024-08-17] MEDS: NOVOLOG FLEXPEN-MODERATE RESISTANCE SC (08:12)
--- NOTE | 2024-08-17 08:14 | W.PN.NEPH.PH ---
Today's Communication / Plan
-
Observe
No dialysis today
Replete potassium
Assessment/Plan
-
Impression:
Nausea vomiting abdominal pain
Acute kidney injury 7.6)
Chronic kidney disease stage IIIb with baseline creatinine 1.6
Gapped metabolic acidosis with associated lactic acidosis (24)
Hypertension
Diabetes
History of rheumatoid arthritis
History of obstructive uropathy with history of ureter stent in 2022
Right nephrectomy in 2007
Left partial nephrectomy in 2021
strep bacteremia with likely IE
Plan:
YOLIE with some improvement with creatinine down to 5.6
Remains nonoliguric approximately 1600 cc
follow BMP
no emergent HD needs today
probably ATN but I am unsure of the etiology
maintain frazier
Antibiotics to be renally dosed for strep bacteremia
still with UOP. If Cr worsens can check retrograde pyelogram, this was previously discussed with urology although I agree that if significant obstruction was present I am unsure why she has such good urine output
Dialysis need may be approaching, discussed with patient
for SHIVANI monday
Will check ASO and complement levels for possibly infectious mediated GN
critical care time 31 minutes
-
-
Date of Service: August 17, 2024
CC / HPI / ROS
-
Chief Complaint:
YOLIE
History of Present Illness:
YOLIE/Cr down to 5 point
Na up to 141
Potassium down to 3 point
lactate improving
Hemodynamically stable
frazier, in, nonoliguric
Review of Systems:
no CP/SOB
Weights up
Labs
-
Labs:
WBC 7.7 10^3/uL (4.8-10.8) 08/17/24 04:54
RBC 3.77 10^6/uL (4.20-5.40) L 08/17/24 04:54
Hgb 11.5 g/dL (12.0-16.0) L 08/17/24 04:54
Hct 34.3 % (37.0-47.0) L 08/17/24 04:54
Plt Count 233 10^3/uL (130-400) 08/17/24 04:54
Sodium 141 mmol/L (135-145) 08/17/24 04:54
Potassium 3.3 mmol/L (3.5-5.1) L 08/17/24 04:54
Chloride 102 mmol/L (98-107) 08/17/24 04:54
Carbon Dioxide 25 mmol/L (22-30) 08/17/24 04:54
BUN 55 mg/dl (7-17) H 08/17/24 04:54
Creatinine 5.6 mg/dL (0.6-1.0) H* 08/17/24 04:54
eGFR 8.47 08/17/24 04:54
Glucose 162 mg/dl (70-99) H 08/17/24 04:54
Calcium 9.6 mg/dl (8.4-10.2) 08/17/24 04:54
Albumin 3.2 g/dl (3.5-5.0) L 08/17/24 04:54
Physical Exam
-
Vital Signs:
Vital Signs
Temp Pulse Resp BP Pulse Ox
98.7 F 102 18 148/87 98
08/17/24 07:51 08/17/24 07:46 08/17/24 07:46 08/17/24 04:00 08/17/24 06:00
Cardiovascular:: Regular rate and rhythm
Respiratory:: Bilateral: Coarse
Lung Excursion:: Normal
Abdomen:: Nontender and Soft
Bowel Sounds:: Normal
Extremity Edema:: None: Bilateral:
[2024-08-17 08:23] LABS: Glucose - Point of Care 143 mg/dl (70-99)
[2024-08-17 08:33] LABS: Magnesium 1.9 mg/dl (1.6-2.3)
--- NOTE | 2024-08-17 08:40 | PTCARENOTE ---
IVF d/c'ed per Dr Meeks
--- NOTE | 2024-08-17 08:40 | PHA.VAN.FU ---
Vancomycin Assessment / Plan
- Assessment
Renal Function: SCR Decreasing (7.3->7.0->5.6)
WBC's are: WNL
In the past 24 hrs, patient has been: Afebrile
Concomitant Antimicrobials: ampicillin/sulbactam (renally dosed)
- Assessment - Therapeutic Drug Monitoring
Random Level: 14.1 ( last vanc dose 1500 mg 08/15 @1000)
Calculated half life (H): ~63 hours based on last 2 levels
- Dosing Plan
Continue: dose by random level
Dosing by Level: Hold off on dosing today
- Monitoring Plan
Random Level: repeat random level AM 08/18
- Follow Up
Pharmacy will continue to follow.
Vancomycin Follow UP
- -
Patient Age: 53
Patient Sex: Female
Vancomycin Day #: 3
Indication: Bacteremia
Requesting Provider: Dr Coburn/ Dr Silver
Pertinent Antimicrobial Allergies:
no known allergies
Height / Weight:
Height 5 ft 2 in
Actual Weight 76.9 kg
Pertinent Past Medical History: Kidney Cancer on chemo;R nephrectomy; partial L nephrectomy
- Vital Signs / Lab Results
Temp Pulse Resp BP Pulse Ox
98.7 F 102 18 148/87 98
08/17/24 07:51 08/17/24 07:46 08/17/24 07:46 08/17/24 04:00 08/17/24 06:00
Lab Results - Hematology
08/15/24 08/16/24 08/17/24
03:43 04:31 04:54
WBC 6.7 6.7 7.7
Lab Results - Chemistry
08/15/24 08/16/24 08/17/24
03:43 04:31 04:54
BUN 65 H 61 H 55 H
Creatinine 7.3 H* 7.0 H* 5.6 H*
Estimated Creat Clear 8 9 11
Albumin 2.9 L 2.8 L 3.2 L
Lab Results - Urine
08/16/24
12:20
Urine Nitrite (Reflex) Negative
Leukocyte Esterase Rfl Negative
Ur Squamous Epith Cells 3-5
Microbiology Results
08/15/24 15:54 Blood Culture - Preliminary
Blood/Venous No Growth in 24 hours- Final report to follow
08/15/24 10:12 Blood Culture - Preliminary
Blood/Venous No Growth in 24 hours- Final report to follow
08/13/24 13:32 Blood Culture - Preliminary
Blood/Venous Coagulase neg. staphylococcus
Additional testing on request
Gram Stain - Preliminary
Therapeutic Drug Monitoring
Random Vancomycin 14.1 ug/ml 08/17/24 04:54
--- NOTE | 2024-08-17 10:08 | W.PN.URO.CBU ---
Today's Communication / Plan
-
Trend creatinine
Maintain frazier
Assessment / Plan
-
53F with metastatic renal cell ca
solitary left kidney s/p R nephrectomy
ARF
Bacteremia
- Normalized urine output and improving creatinine
- Unclear if this is medical or possibly passage of some ureteral gravel/small stone that was obstructing kidney
- Do not feel operative intervention is indicated at this time- but will monitor closely and if cr does not improve/UO drops- would again consider cysto and retrograde pyelogram/ureteroscopy
- Maintain frazier at this time for maximal drainage and I/O while renal function improves
- Possible gram + bacteremia, endocarditis with abx per ID
Diagnosis
-
Date of Service: August 17, 2024
-
Patient Diagnosis:
Post Op Day:
Patient Diagnosis:
renal cell ca- metastatic
hx of right nx and partial left nx
? sepsis
ARF
Subjective
-
no events overnight
creat improved
no flank pain
mild abdominal pain she thinks is GI
Objective
-
Vital Signs
Temp Pulse Resp BP Pulse Ox
98.7 F 88 20 145/80 97
08/17/24 07:51 08/17/24 10:00 08/17/24 09:00 08/17/24 10:00 08/17/24 10:00
Intake and Output
08/16/24 08/17/24 08/18/24
06:59 06:59 06:59
Intake Total 3900 / 3900 3160 / 3160
Output Total 1750 / 1750 1675 / 1675
Balance 2150 / 2150 1485 / 1485
Intake:
Oral fluids 550 / 550 960 / 960
IV fluids (Total) 2300 / 2300 2080 / 2080
Nss 1,000 ml @ 80 mls/hr IV . 2299
[id number] [facility] Rx#:[id number]
IV piggybacks 1050 / 1050 120 / 120
Output:
Urine, Frazier 1750 / 1750 1675 / 1675
Laboratory Results
08/17/24 04:54
08/17/24 04:54
Physical Exam
-
General - well developed, well nourished, no acute distress
Chest - clear
Abdomen - soft, non-tender
- no CVATfreddie in place clear urine
Skin - warm & dry with no rash
--- NOTE | 2024-08-17 11:57 | PTCARENOTE ---
Pt continues to sit OOB in chair. Denies any complaints. No changes from previous assessment findings. Pt asking to shower- request passed on to Dr Coburn who wants pt to 'avoid showering at this time'.
--- NOTE | 2024-08-17 12:09 | W.PN.HOSP.TC ---
Today's Communication/Plan
-
cont Abx
follow labs
start Amlodipine
Hypokalemia repleted and to be followed
Assessment / Plan
Assessment / Plan
53yo F with PMHX of RCC s/p R nephrectomy and partial L nephrectomy, CKD stage 3, Hx of nephrolithiasis, recent chemotherapy cycle that was terminated due to worsening nausea came with nausea, vomiting and minimal diarrhea over past 2 days prior to
admission, managed for complicated UTI with nephrolithiasis, bacteremia, YOLIE and also mild hypoxemia, found aortic vegetations with positive Bcx concerning for endocarditis so SHIVANI pending for 08/19/[address] Cain ([facility] oncologist) [phone]
A/P:
#UTI, complicated with non-obstructive nephrolithiasis and mild dilation of the L upper calyces
#Nausea most likely intolerance of the recent chemo
Urology consult: monitoring, deferred stent placement with no clear signs of obstruction causing YOLIE and improvement of kidney function. Could not exclude stone passage
Urine not indicative of infection
Zofran
#Bacteremia with concern for Endocarditis
Coag,neg staph in 1 set (unfortunately only 1 done on admission)
Hx of strep. UTI
with ill defined mass L kidney - stable, discussed drain with IRAD on admission, at this time not indicated
Repeat Bcx
Vanco/Unasyn
UA neg
Echo: with Probable vegetation on the noncoronary cusp of the aortic valve and concern for mitral valve vegetations
Cardiology scheduled SHIVANI for 08/19/24
#Acute hypoxic insufficiency
#Atelectasis
R hemidiaphragm elevation
wheezing on exam
Bronchodilators
Increase steroids
Incentive spirometry
#YOLIE on CKD stage 3, non-oliguric
most likely hypovolemic 2/2 dehydration
frazier
serial BMP
Nephrology: ASO and complement pending
IVF
#RCC with liver lesions and L kidney mass and lithic osseous mets on L humeral head
cont follow up with [facility] upon d/c
#DJD
tylenol
#DM type 2 with nephropathy
DM diet, accuchecks, Insulin SS
decrease Glargine to 8units
#minimal ALT elevation
#Alk.phos elevation
follow LFT
HepC Ab neg
No CBD dilation and no signs of gall bladder pathology on US
#Anemia of chronic disease
minimal
monitor CBC
#Essential HTN
#HLD
#hypothyroidism
#RA on steroids
Hold Rinvoq
TSH WNL
cont home meds
Gradually restart antihypertensives meds since hypotension 2/2 dehydration on admission
DVT ppx hep
Full code
I have spent at least 57min reviewing chart, test results, communication with consultants and direct patient care
Anticipated Discharge: > 48 hours
Subjective/Interval History
-
Date of Service: August 17, 2024
Objective Data
-
Labs:
Laboratory Results
08/17/24
04:54
WBC 7.7
Hgb 11.5 L
Hct 34.3 L
Plt Count 233
Sodium 141
Potassium 3.3 L
Chloride 102
Carbon Dioxide 25
BUN 55 H
Creatinine 5.6 H*
Glucose 162 H
Calcium 9.6
Total Bilirubin 0.5
AST 88 H
ALT 55 H
Alkaline Phosphatase 245 H
Vital Signs:
Vital Signs
Temp Pulse Resp BP Pulse Ox
98.7 F 88 20 145/80 97
08/17/24 07:51 08/17/24 10:00 08/17/24 09:00 08/17/24 10:00 08/17/24 10:00
I&O
08/16/24 08/17/24 08/18/24
06:59 06:59 06:59
Intake Total 3900 / 3900 3160 / 3160
Output Total 1750 / 1750 1675 / 1675
Balance 2150 / 2149 1485 / 1485
Review of Systems
-
History Source: Patient
All other systems: Reviewed and negative
Physical Exam
-
General: No Apparent Distress
HEENT: Normocephalic
Cardiac: Regular Rhythm
GI: Soft, Nontender and Nondistended
Genito-urinary: No Costovertebral Tender and Frazier
Skin: Warm
Neuro: Awake, Alert, Oriented and AO x 3
[2024-08-17 12:20] LABS: Glucose - Point of Care 188 mg/dl (70-99)
[2024-08-17] MEDS: NOVOLOG FLEXPEN-MODERATE RESISTANCE 1 UNITS SC (12:41)
[2024-08-17] MEDS: NORVASC 5 MG PO (12:47)
--- NOTE | 2024-08-17 14:43 | PTCARENOTE ---
Transfer report called to 'Nellie RODNEY'. Pt to transfer to Rm [id number] via w/ all personal belongings. No changes noted or new complaints received prior to transfer
--- NOTE | 2024-08-17 16:00 | PTCARENOTE ---
pt received from ICU. AAOx3 but tremulous at baseline per pt, VSS. Pt connected to 1L O2 and case monitor, frazier catheter in place, denies N/V/D or pain. pt oriented to unit by this RN. call bed within reach. no complaints at this time.
[2024-08-17] MEDS: UNASYN IV (16:51)
[2024-08-17 17:23] LABS: Glucose - Point of Care 263 mg/dl (70-99)
[2024-08-17] MEDS: NOVOLOG FLEXPEN-MODERATE RESISTANCE 5 UNITS SC (17:50)
[2024-08-17 21:48] LABS: Glucose - Point of Care 195 mg/dl (70-99)
[2024-08-17] MEDS: LANTUS 0.08 UNITS SC (22:13)
[2024-08-18 03:00] VITALS: BP 155/83
[2024-08-18] MEDS: SYNTHROID 88 MCG PO (05:40)
[2024-08-18 06:00] VITALS: BMI 31.3
[2024-08-18 07:00] VITALS: BP 154/78
[2024-08-18 07:02] LABS: % Basophils 0.2 % (0-2); % Eosinophils 0.3 % (0-6); % Lymphocytes 3.4 % (20.5-51.1); % Monocytes 11.8 % (1.7-9.3); % Neutrophils 83.3 % (42.2-75.2); Absolute Immature Granulocytes 0.1 10^3/uL (0-0.05); Absolute Lymphocytes 0.2 10^3/uL (1.2-3.4); Absolute Monocytes 0.7 10^3/uL (0.1-0.6); Absolute Neutrophils 4.9 10^3/uL (1.4-6.5); Hematocrit 34.2 % (37.0-47.0); Hemoglobin 11.4 g/dL (12.0-16.0); Mean Corp Hgb Conc. 33.3 g/dL (33.0-37.0); Mean Corpuscular Hgb 31.1 pg (27.0-31.0); Mean Corpuscular Volume 93.4 fL (81.0-99.0); Mean Platelet Volume 10.6 fL (7.4-10.4); Nucleated Red Blood Cells % 0 %; Platelet Count 222 10^3/uL (130-400); Red Blood Cell Count 3.66 10^6/uL (4.20-5.40); Red Cell Dist. Width 16.2 % (11.5-14.5); White Blood Cell Count 5.9 10^3/uL (4.8-10.8)
[2024-08-18 07:28] LABS: Vancomycin Random 10.8 ug/ml
[2024-08-18 07:31] LABS: ALT (SGPT) 76 U/L (0-35); AST (SGOT) 133 U/L (14-36); Alkaline Phosphatase 254 U/L (38-126); Blood Urea Nitrogen 49 mg/dl (7-17); Calcium 10.2 mg/dl (8.4-10.2); Carbon Dioxide 26 mmol/L (22-30); Chloride 104 mmol/L (98-107); Estimated Creatinine Clearance 17 ml/min; Glucose 95 mg/dl (70-99); Potassium 3.4 mmol/L (3.5-5.1); Sodium 140 mmol/L (135-145); Total Bilirubin 0.6 mg/dl (0.2-1.3); Total Protein 5.2 g/dl (6.3-8.2); eGFR 13.93
[2024-08-18 07:49] LABS: Glucose - Point of Care 103 mg/dl (70-99)
[2024-08-18 08:08] LABS: Anti Streptolysin Negative (Negative)
[2024-08-18] MEDS: NOVOLOG FLEXPEN-MODERATE RESISTANCE SC ×2 (08:15→12:50)
[2024-08-18] MEDS: KCL 40 MEQ PO (08:23)
[2024-08-18] MEDS: HEPARIN 5000 UNITS SC ×2 (08:24→21:25)
[2024-08-18] MEDS: NORVASC 5 MG PO (08:24)
[2024-08-18] MEDS: DELTASONE 20 MG PO (08:24)
[2024-08-18] MEDS: LIPITOR 80 MG PO (08:25)
--- NOTE | 2024-08-18 09:54 | W.PN.NEPH.PH ---
Today's Communication / Plan
-
Follow BMP
Potassium repletion
SHIVANI tomorrow
Assessment/Plan
-
Impression:
Nausea vomiting abdominal pain
Acute kidney injury 7.6)
Chronic kidney disease stage IIIb with baseline creatinine 1.6
Gapped metabolic acidosis with associated lactic acidosis (24)
Hypertension
Diabetes
History of rheumatoid arthritis
History of obstructive uropathy with history of ureter stent in 2022
Right nephrectomy in 2007
Left partial nephrectomy in 2021
strep bacteremia with likely IE
Suspected metastatic renal cell carcinoma
Plan:
YOLIE with continued improvement with creatinine now down to 3.7
Remains nonoliguric approximately 1700 cc
I suspect ongoing hypokalemia is due to post ATN diuresis, oral repletion given this morning
follow BMP
For transesophageal echocardiogram for suspected heart valve vegetation tomorrow
maintain frazier
Unasyn renally dosed for strep bacteremia
Will check ASO and complement levels for possibly infectious mediated GN
critical care time 31 minutes
-
-
Date of Service: August 18, 2024
CC / HPI / ROS
-
Chief Complaint:
YOLIE
History of Present Illness:
YOLIE/Cr down to 3.7
Potassium down to 3.4
Remains on Unasyn for presumed infectious endocarditis
Hemodynamically stable
frazier, in, nonoliguric
Review of Systems:
no CP/SOB
Weights down
Grossly nonoliguric via Frazier
Labs
-
Labs:
WBC 5.9 10^3/uL (4.8-10.8) 08/18/24 06:04
RBC 3.66 10^6/uL (4.20-5.40) L 08/18/24 06:04
Hgb 11.4 g/dL (12.0-16.0) L 08/18/24 06:04
Hct 34.2 % (37.0-47.0) L 08/18/24 06:04
Plt Count 222 10^3/uL (130-400) 08/18/24 06:04
Sodium 140 mmol/L (135-145) 08/18/24 06:04
Potassium 3.4 mmol/L (3.5-5.1) L 08/18/24 06:04
Chloride 104 mmol/L (98-107) 08/18/24 06:04
Carbon Dioxide 26 mmol/L (22-30) 08/18/24 06:04
BUN 49 mg/dl (7-17) H 08/18/24 06:04
Creatinine 3.7 mg/dL (0.6-1.0) H 08/18/24 06:04
eGFR 13.93 08/18/24 06:04
Glucose 95 mg/dl (70-99) 08/18/24 06:04
Calcium 10.2 mg/dl (8.4-10.2) 08/18/24 06:04
Albumin 3.0 g/dl (3.5-5.0) L 08/18/24 06:04
Physical Exam
-
Vital Signs:
Vital Signs
Temp Pulse Resp BP Pulse Ox
98.2 F 81 18 154/78 96
08/18/24 07:00 08/18/24 08:24 08/18/24 07:00 08/18/24 08:24 08/18/24 07:00
Cardiovascular:: Regular rate and rhythm
Respiratory:: Bilateral: Coarse
Lung Excursion:: Normal
Abdomen:: Nontender and Soft
Bowel Sounds:: Normal
Extremity Edema:: None: Bilateral:
Frazier Catheter: Yes
[2024-08-18 11:00] VITALS: BP 147/91
--- NOTE | 2024-08-18 11:44 | W.PN.URO.CBU ---
Today's Communication / Plan
-
Trial of void
Trend renal function
Assessment / Plan
-
53F with metastatic renal cell ca
solitary left kidney s/p R nephrectomy
ARF
Bacteremia
Undergoing workup and treatment for endocarditis/bacteremia
- Normalized urine output and improving creatinine
- Unclear if this is medical or possibly passage of some ureteral gravel/small stone that was obstructing kidney
- Remove frazier, trial of void
Diagnosis
-
Date of Service: August 18, 2024
-
Patient Diagnosis:
Post Op Day:
Patient Diagnosis:
renal cell ca- metastatic
hx of right nx and partial left nx
? sepsis
ARF
Subjective
-
no events overnight
Objective
-
Vital Signs
Temp Pulse Resp BP Pulse Ox
97.9 F 118 18 147/91 93
08/18/24 11:00 08/18/24 11:00 08/18/24 11:00 08/18/24 11:00 08/18/24 11:00
Intake and Output
08/17/24 08/18/24 08/19/24
06:59 06:59 06:59
Intake Total 3160 / 3160 1608 / 1608
Output Total 1675 / 1675 1600 / 1600
Balance 1485 / 1485 8 / 8
Intake:
Oral fluids 960 / 960 1608 / 1608
IV fluids (Total) 2079
Nss 1,000 ml @ 80 mls/hr IV . 2079
[id number] Rx#:[id number]
IV piggybacks 120 / 120
Output:
Urine, Frazier 1675 / 1675 1600 / 1600
Laboratory Results
08/18/24 06:04
08/18/24 06:04
Physical Exam
-
General - well developed, well nourished, no acute distress
Frazier in place, clear urine
[2024-08-18 11:45] LABS: Glucose - Point of Care 132 mg/dl (70-99)
--- NOTE | 2024-08-18 11:51 | W.PN.HOSP.TC ---
Today's Communication/Plan
-
Stopped Vanco
Confirmed SHIVANI in AM - NPO starting MN
Assessment / Plan
Assessment / Plan
53yo F with PMHX of RCC s/p R nephrectomy and partial L nephrectomy, CKD stage 3, Hx of nephrolithiasis, recent chemotherapy cycle that was terminated due to worsening nausea came with nausea, vomiting and minimal diarrhea over past 2 days prior to
admission, managed for complicated UTI with nephrolithiasis, bacteremia, YOLIE and also mild hypoxemia, found aortic vegetations with positive Bcx concerning for endocarditis so SHIVANI pending for 08/19/[address] Cain ([facility] oncologist) [phone]
A/P:
#UTI, complicated with non-obstructive nephrolithiasis and mild dilation of the L upper calyces
#Nausea most likely intolerance of the recent chemo
Urology consult: monitoring, deferred stent placement with no clear signs of obstruction causing YOLIE and improvement of kidney function. Could not exclude stone passage
Urine not indicative of infection
Zofran
#Bacteremia with concern for Endocarditis
Staph.capitis sensitive to Unasyn in 1 set (unfortunately only 1 done on admission)
Hx of strep. UTI
with ill defined mass L kidney - stable, discussed drain with IRAD on admission, at this time not indicated
Repeat Bcx NTD
UA neg
Echo: with Probable vegetation on the noncoronary cusp of the aortic valve and concern for mitral valve vegetations
Cardiology scheduled SHIVANI for 08/19/24
#Acute hypoxic insufficiency
#Atelectasis
R hemidiaphragm elevation
wheezing on exam
Bronchodilators
Increase steroids
Incentive spirometry
#YOLIE on CKD stage 3, non-oliguric
most likely hypovolemic 2/2 dehydration
frazier
serial BMP
Nephrology: ASO and complement pending
IVF
#RCC with liver lesions and L kidney mass and lithic osseous mets on L humeral head
cont follow up with [facility] upon d/c
#DJD
tylenol
#DM type 2 with nephropathy
DM diet, accuchecks, Insulin SS
decrease Glargine to 8units
#minimal ALT elevation
#Alk.phos elevation
follow LFT
HepC Ab neg
No CBD dilation and no signs of gall bladder pathology on US
#Anemia of chronic disease
minimal
monitor CBC
#Essential HTN
#HLD
#hypothyroidism
#RA on steroids
Hold Rinvoq
TSH WNL
cont home meds
Gradually restart antihypertensives meds since hypotension 2/2 dehydration on admission
DVT ppx hep
Full code
I have spent at least 57min reviewing chart, test results, communication with consultants and direct patient care
Anticipated Discharge: > 48 hours
Subjective/Interval History
-
Date of Service: August 18, 2024
Objective Data
-
Labs:
Laboratory Results
08/18/24
06:04
WBC 5.9
Hgb 11.4 L
Hct 34.2 L
Plt Count 222
Sodium 140
Potassium 3.4 L
Chloride 104
Carbon Dioxide 26
BUN 49 H
Creatinine 3.7 H
Glucose 95
Calcium 10.2
Total Bilirubin 0.6
AST 133 H
ALT 76 H
Alkaline Phosphatase 254 H
Vital Signs:
Vital Signs
Temp Pulse Resp BP Pulse Ox
97.9 F 118 18 147/91 93
08/18/24 11:00 08/18/24 11:00 08/18/24 11:00 08/18/24 11:00 08/18/24 11:00
I&O
08/17/24 08/18/24 08/19/24
06:59 06:59 06:59
Intake Total 3160 / 3160 1608 / 1608
Output Total 1675 / 1675 1600 / 1600
Balance 1485 / 1485
Review of Systems
-
History Source: Patient
All other systems: Reviewed and negative
Physical Exam
-
General: Comfortable
HEENT: Normocephalic
Respiratory: Clear to Auscultation
GI: Soft, Nontender and Nondistended
Genito-urinary: Frazier
Musculoskeletal: No Clubbing, No Cyanosis and No Edema
Neuro: Awake, Alert, Oriented and AO x 3
Psych: Calm
--- NOTE | 2024-08-18 12:13 | CM ---
CM reviewed chart. Pt care and work up on-going. Pending the following: PO repleted 2/2 hypokalemia in setting of ATN diuressis, following BMP, SHIVANI Monday for suspected heart valve vegetation, frazier maintained for strict I/Os (should have daily wgt
as well), Unasyn renally dosed for strep bacteremia. Nephro also checking ASO and complement levels for possibly infectious mediated GN. Please place consult for CM/SW within 48hrs of discharge should LTIabx be appropriate/rec'd.
CM/SW will continue to follow to ensure a safe and timely dc.
[2024-08-18 15:00] VITALS: BP 164/97
--- NOTE | 2024-08-18 15:18 | W.PN.CARDCBS ---
Today's Communication / Plan
-
N.p.o. after midnight, tentative SHIVANI tomorrow 08/19/2024
Antibiotics per primary service/infectious disease
Renal function improving creatinine 3.7
Impression / Plan
-
PCP: Dr. Montes
Cardiology: None
[facility] nurse navigator: Zandra [phone] Cain's cell # is [phone]
Impression:
Admitted with N/V/D and YOLIE 08/13/24
YOLIE on CKD 3
Bacteremia
Abnormal echo with possible vegetations
h/o renal cell carcinoma with previous right nephrectomy and partial left nephrectomy and metastatic liver lesions
chemotherapy with [facility]
DM 2
HTN
Hyperlipidemia
Hypothyroid
RA
Echo 08/15/24: EF 55%, normal diastolic function, in short axis chamber view there is a mobile vegetation on the septal aspect of the MV which could possibly be mobile from the LV outflow tract, thickened noncoronary cusp only seen in some views,
probable vegetation on the noncoronary cusp which appears slightly mobile and no aortic regurgitation
Plan:
-Patient came to ER on 08/13/2024 with nausea vomiting and some diarrhea, she was admitted with YOLIE and cardiology is now consulted for an abnormal echo. Patient has a history of renal cell carcinoma with a previous right nephrectomy in 2018 and
no chemotherapy or radiation at that time. Patient then recurred with renal cell carcinoma in her solitary left kidney in 2021 and had a partial left nephrectomy at that time. Patient has CKD 3. Patient is following at [facility] and had a recent
change in her chemotherapy regimen as it was felt that she was not tolerating the standard regimen. She had nausea vomiting and abdominal pain starting about 5 days ago and came to ER on 08/13/2024 and was admitted with YOLIE and creatinine up to
7.6. There is also concern for sepsis on admission and blood cultures are now growing gram-positive cocci. Transthoracic echo performed as noted above is concerning for vegetation and cardiology has been consulted. The patient denies any previous
cardiac testing, she does not think she has had a previous echo. She has never seen a inspector and clerk. Patient has been afebrile throughout this admission. Urine culture was positive for strep and blood culture speciation is in process.
-ECG reviewed by me and showed SR without acute ischemic changes.
-Talked with patient and reviewed echo findings along with positive blood cultures and concern for endocarditis. We reviewed the echo findings and reviewed that a SHIVANI could provide additional information. We discussed SHIVANI procedure. Patient is
agreeable.
-Tentative SHIVANI/DCCV 08/19/2024, n.p.o. after midnight
-Minimal improvement in Cre since admission, will avoid anesthesia.
-Ampicillin and vancomycin ordered.
Progress Note - Fishing Tackle Repairer
Subjective
Date of Service: August 18, 2024
Patient seen and examined. No acute events overnight. Patient resting comfortably in bed. Patient Nu[place] any chest pain, shortness of breath, palpitations, or fevers. No other complaints this time. Telemetry demonstrating sinus rhythm/sinus tach
with occasional PVC
Objective
Labs:
08/18/24 06:04
08/18/24 06:04
Labs
Hgb 11.4 g/dL (12.0-16.0) L 08/18/24 06:04
Hct 34.2 % (37.0-47.0) L 08/18/24 06:04
Plt Count 222 10^3/uL (130-400) 08/18/24 06:04
Sodium 140 mmol/L (135-145) 08/18/24 06:04
Potassium 3.4 mmol/L (3.5-5.1) L 08/18/24 06:04
BUN 49 mg/dl (7-17) H 08/18/24 06:04
Creatinine 3.7 mg/dL (0.6-1.0) H 08/18/24 06:04
Glucose 95 mg/dl (70-99) 08/18/24 06:04
Vital Signs and I&O:
Vital Signs
Temp Pulse Resp BP Pulse Ox
97.9 F 118 18 147/91 93
08/18/24 11:00 08/18/24 11:00 08/18/24 11:00 08/18/24 11:00 08/18/24 11:00
Vital Signs
Temp Pulse Resp BP Pulse Ox
97.9 F 118 18 147/91 93
08/18/24 11:00 08/18/24 11:00 08/18/24 11:00 08/18/24 11:00 08/18/24 11:00
Intake & Output
08/16/24 08/17/24 08/18/24 08/19/24
06:59 06:59 06:59 06:59
Intake Total 3900 / 3900 3160 / 3160 1608 / 1608
Output Total 1750 / 1750 1675 / 1675 1600 / 1600
Balance 2150 / 2150 1485 / 1485 8 / 8
Physical Exam
Physical Exam
GEN: NAD. AAOx3
HEENT: EOMI, MMM
LUNGS: RA. CTA B/L, no wheezes or rales
CV: SR on tele. Reg, S1/S2, 1/6 syst LSB
ABD: soft, BS+, NT, ND
EXT: No clubbing, cyanosis, lesions or edema B/L
NEURO: Gross non-focal
SKIN: Warm, dry and pink. No rash
[2024-08-18] MEDS: UNASYN IV (15:21)
[2024-08-18 16:16] LABS: Glucose - Point of Care 198 mg/dl (70-99)
[2024-08-18] MEDS: NOVOLOG FLEXPEN-MODERATE RESISTANCE 1 UNITS SC (17:20)
--- NOTE | 2024-08-18 18:00 | PTCARENOTE ---
urology ordered frazier removal. frazier removed by this RN @1222. @1330, pt voided into the toilet. post void residual 52mls. pt has no complaints of pain or discomfort and has continued to void throughout shift. will continue to monitor and pass along
info for oncoming RN.
--- NOTE | 2024-08-18 18:32 | PTCARENOTE ---
pt removed oxygen tubing in the morning stating that she 'feels fine without it.' pulse ox 96% on RA. O2 sat maintained > 93% during shift.
[2024-08-18 19:00] VITALS: BP 157/94
[2024-08-18] MEDS: TUMS CHEWABLE TABLET 200 MG PO (21:26)
[2024-08-18] MEDS: LANTUS 0.08 UNITS SC (21:26)
[2024-08-18 21:28] LABS: Glucose - Point of Care 203 mg/dl (70-99)
[2024-08-18 23:00] VITALS: BP 147/80
[2024-08-19] VITALS (9 sets, daily range): BP systolic 135–169; BP diastolic 69–96; BMI 31.0
[2024-08-19 01:09] LABS: Complement C3 118 mg/dl (88-165)
[2024-08-19] MEDS: UNASYN IV (03:27)
[2024-08-19 04:44] LABS: % Basophils 0.1 % (0-2); % Immature Granulocytes 1.2 % (0-0.5); % Lymphocytes 4.1 % (20.5-51.1); % Monocytes 11.8 % (1.7-9.3); % Neutrophils 82.8 % (42.2-75.2); Absolute Immature Granulocytes 0.1 10^3/uL (0-0.05); Absolute Lymphocytes 0.3 10^3/uL (1.2-3.4); Absolute Monocytes 0.9 10^3/uL (0.1-0.6); Hematocrit 32.5 % (37.0-47.0); Hemoglobin 10.8 g/dL (12.0-16.0); Mean Corp Hgb Conc. 33.2 g/dL (33.0-37.0); Mean Corpuscular Hgb 30.9 pg (27.0-31.0); Mean Corpuscular Volume 93.1 fL (81.0-99.0); Mean Platelet Volume 10.2 fL (7.4-10.4); Nucleated Red Blood Cells % 0 %; Platelet Count 194 10^3/uL (130-400); Red Blood Cell Count 3.49 10^6/uL (4.20-5.40); Red Cell Dist. Width 16.3 % (11.5-14.5); White Blood Cell Count 7.3 10^3/uL (4.8-10.8)
[2024-08-19] MEDS: SYNTHROID 88 MCG PO (05:20)
[2024-08-19] MEDS: TUMS CHEWABLE TABLET 200 MG PO ×2 (05:58→12:51)
[2024-08-19 06:48] LABS: ALT (SGPT) 86 U/L (0-35); AST (SGOT) 151 U/L (14-36); Albumin 3.4 g/dl (3.5-5.0); Alkaline Phosphatase 272 U/L (38-126); Blood Urea Nitrogen 38 mg/dl (7-17); Calcium 11.1 mg/dl (8.4-10.2); Carbon Dioxide 27 mmol/L (22-30); Chloride 103 mmol/L (98-107); Estimated Creatinine Clearance 22 ml/min; Glucose 116 mg/dl (70-99); Potassium 3.4 mmol/L (3.5-5.1); Sodium 141 mmol/L (135-145); Total Bilirubin 0.8 mg/dl (0.2-1.3); eGFR 19.46
[2024-08-19] MEDS: LIPITOR 80 MG PO (07:37)
[2024-08-19] MEDS: NORVASC 5 MG PO (07:37)
[2024-08-19] MEDS: DELTASONE 20 MG PO (07:38)
[2024-08-19] MEDS: HEPARIN 5000 UNITS SC ×2 (07:39→20:06)
[2024-08-19 07:49] LABS: Glucose - Point of Care 111 mg/dl (70-99)
--- NOTE | 2024-08-19 10:34 | W.PN.CARDCBS ---
Today's Communication / Plan
-
SHIVANI as noted
Please recall if needed
Impression / Plan
-
.
PCP: Dr. Montes
Cardiology: seen Dr Leone
[facility] nurse navigator: Zandra [phone] Cain's cell # is [phone]
Impression:
Admitted with N/V/D and YOLIE 08/13/24
YOLIE on CKD 3
Bacteremia
Abnormal echo with possible vegetations
h/o renal cell carcinoma with previous right nephrectomy and partial left nephrectomy and metastatic liver lesions
chemotherapy with [facility]
DM 2
HTN
Hyperlipidemia
Hypothyroid
RA
Echo 08/15/24: EF 55%, normal diastolic function, in short axis chamber view there is a mobile vegetation on the septal aspect of the MV which could possibly be mobile from the LV outflow tract, thickened noncoronary cusp only seen in some views,
probable vegetation on the noncoronary cusp which appears slightly mobile and no aortic regurgitation
Plan:
Remains sinus
BC now negative.
SHIVANI without evidence of acute veg. EF 55-60% with trace MR, TR and AR. Calcfication noted on noncoronary cusp seen in off angle views.
Cont tx with broad spectrum abx and supportive care
Reviewed with primary service.
Please recall if needed.
HPI: Patient came to ER on 08/13/2024 with nausea vomiting and some diarrhea, she was admitted with YOLIE and cardiology is now consulted for an abnormal echo. Patient has a history of renal cell carcinoma with a previous right nephrectomy in 2018
and no chemotherapy or radiation at that time. Patient then recurred with renal cell carcinoma in her solitary left kidney in 2021 and had a partial left nephrectomy at that time. Patient has CKD 3. Patient is following at [facility] and had a recent
change in her chemotherapy regimen as it was felt that she was not tolerating the standard regimen. She had nausea vomiting and abdominal pain starting about 5 days ago and came to ER on 08/13/2024 and was admitted with YOLIE and creatinine up to
7.6. There is also concern for sepsis on admission and blood cultures are now growing gram-positive cocci. Transthoracic echo performed as noted above is concerning for vegetation and cardiology has been consulted. The patient denies any previous
cardiac testing, she does not think she has had a previous echo. She has never seen a device processing engineer. Patient has been afebrile throughout this admission. Urine culture was positive for strep and blood culture speciation is in process.
-ECG reviewed by me and showed SR without acute ischemic changes.
Progress Note - Metallurgical Inspector
Subjective
Date of Service: August 19, 2024
Pt seen and examined. No chest pain or shortness of breath.
Objective
Labs:
08/19/24 04:36
08/19/24 06:05
Labs
Hgb 10.8 g/dL (12.0-16.0) L 08/19/24 04:36
Hct 32.5 % (37.0-47.0) L 08/19/24 04:36
Plt Count 194 10^3/uL (130-400) 08/19/24 04:36
Sodium 141 mmol/L (135-145) 08/19/24 06:05
Potassium 3.4 mmol/L (3.5-5.1) L 08/19/24 06:05
BUN 38 mg/dl (7-17) H 08/19/24 06:05
Creatinine 2.8 mg/dL (0.6-1.0) H 08/19/24 06:05
Glucose 116 mg/dl (70-99) H 08/19/24 06:05
Vital Signs and I&O:
Vital Signs
Temp Pulse Resp BP Pulse Ox
98.1 F 76 19 160/82 96
08/19/24 07:15 08/19/24 07:37 08/19/24 07:15 08/19/24 07:37 08/19/24 07:15
Vital Signs
Temp Pulse Resp BP Pulse Ox
98.1 F 76 19 160/82 96
08/19/24 07:15 08/19/24 07:37 08/19/24 07:15 08/19/24 07:37 08/19/24 07:15
Intake & Output
08/17/24 08/18/24 08/19/24 08/20/24
06:59 06:59 06:59 06:59
Intake Total 3160 / 3160 1608 / 1608 1740 / 1740
Output Total 1675 / 1675 1600 / 1600 450 / 450
Balance 1485 / 1485 8 / 8 1290 / 1290
Physical Exam
Physical Exam
General: No acute distress, AAOX3
Neck: Negative JVD
Heart: Regular, Negative S3 positive S1/S2, Negative S4, No murmur
Lungs: CTA b/l, negative wheezes/rales/rhonchi
Abd: Positive BS, NT/ND, neg rebound/rigidity/guarding
Ext: Negative cyanosis/clubbing/edema
Neuro: nonfocal
[2024-08-19] MEDS: NOVOLOG FLEXPEN-MODERATE RESISTANCE SC (10:37)
[2024-08-19] MEDS: CATAPRES 0.1 MG PO ×2 (11:24→20:06)
--- NOTE | 2024-08-19 11:44 | W.PN.HOSP.TC ---
Today's Communication/Plan
-
monitor vitals
see plan
monitor renal fucntion
SHIVANI today
cw abx
restart clonidine
monitor urine output
replete K
Assessment / Plan
Assessment / Plan
53yo F with PMHX of RCC s/p R nephrectomy and partial L nephrectomy, CKD stage 3, Hx of nephrolithiasis, recent chemotherapy cycle that was terminated due to worsening nausea came with nausea, vomiting and minimal diarrhea over past 2 days prior to
admission, managed for complicated UTI with nephrolithiasis, bacteremia, YOLIE and also mild hypoxemia, found aortic vegetations with positive Bcx concerning for endocarditis so SHIVANI pending for 08/19/[address] Cain ([facility] oncologist) [phone]
A/P:
#UTI, complicated with non-obstructive nephrolithiasis and mild dilation of the L upper calyces
#Nausea most likely intolerance of the recent chemo
Urology consult: monitoring, deferred stent placement with no clear signs of obstruction causing YOLIE and improvement of kidney function. Could not exclude stone passage
Urine not indicative of infection
Zofran
#Bacteremia with concern for Endocarditis
Staph.capitis sensitive to Unasyn in 1 set (unfortunately only 1 done on admission)
Hx of strep. UTI
with ill defined mass L kidney - stable, discussed drain with IRAD on admission, at this time not indicated
Repeat Bcx NTD
UA neg
Echo: with Probable vegetation on the noncoronary cusp of the aortic valve and concern for mitral valve vegetations
Cardiology scheduled SHIVANI for 08/19/24 appears likely calcification; no clear vegetation
ID following
#Acute hypoxic insufficiency
#Atelectasis
R hemidiaphragm elevation
Bronchodilators
dec steroids back to 5mg prednisone which she takes for RA
Incentive spirometry
#YOLIE on CKD stage 3, non-oliguric
most likely hypovolemic 2/2 dehydration
freddie dc'ed; monitor
serial BMP
Nephrology: ASO and complement pending
cr slowly improving
#RCC with liver lesions and L kidney mass and lithic osseous mets on L humeral head
cont follow up with [facility] upon d/c
#DJD
tylenol
#DM type 2 with nephropathy
DM diet, accuchecks, Insulin SS
cw glargine
holding metformin
#elevated LFT's
#Alk.phos elevation
follow LFT
HepC Ab neg
No CBD dilation and no signs of gall bladder pathology on US
#Anemia of chronic disease
minimal
monitor CBC
mild hypercalcemia
monitor
#Essential HTN
#HLD
#hypothyroidism
#RA on steroids
Hold Rinvoq
TSH WNL
cont home meds
Gradually restart antihypertensives meds since hypotension 2/2 dehydration on admission. restarted clonidine
DVT ppx hep
Full code
General: Comfortable
HEENT: Normocephalic
Respiratory: Clear to Auscultation
GI: Soft, Nontender and Nondistended
Genito-urinary: Randle
Musculoskeletal: No Clubbing, No Cyanosis and No Edema
Neuro: Awake, Alert, Oriented and AO x 3
Psych: Calm
I have spent at least 52 min reviewing chart, test results, communication with consultants and direct patient care
Anticipated Discharge: > 48 hours
Subjective/Interval History
-
Date of Service: August 19, 2024
denies pain
Objective Data
-
Labs:
Laboratory Results
08/19/24 08/19/24
04:36 06:05
WBC 7.3
Hgb 10.8 L
Hct 32.5 L
Plt Count 194
Sodium Cancelled 141
Potassium Cancelled 3.4 L
Chloride Cancelled 103
Carbon Dioxide Cancelled 27
BUN Cancelled 38 H
Creatinine Cancelled 2.8 H
Glucose Cancelled 116 H
Calcium Cancelled 11.1 H
Total Bilirubin Cancelled 0.8
AST Cancelled 151 H
ALT Cancelled 86 H
Alkaline Phosphatase Cancelled 272 H
Vital Signs:
Vital Signs
Temp Pulse Resp BP Pulse Ox
97.4 F 102 18 147/90 96
08/19/24 11:30 08/19/24 11:30 08/19/24 11:30 08/19/24 11:30 08/19/24 11:30
I&O
08/18/24 08/19/24 08/20/24
06:59 06:59 06:59
Intake Total 1608 / 1608 1740 / 1740
Output Total 1600 / 1600 450 / 450
Balance 1290 / 1290
[2024-08-19 11:46] LABS: Glucose - Point of Care 167 mg/dl (70-99)
[2024-08-19] MEDS: KCL 20 MEQ PO (12:40)
[2024-08-19] MEDS: NOVOLOG FLEXPEN-MODERATE RESISTANCE 1 UNITS SC (14:17)
--- NOTE | 2024-08-19 14:47 | W.PN.NEPH.PH ---
Today's Communication / Plan
-
C HPI
Assessment/Plan
-
Impression:
Nausea vomiting abdominal pain
Acute kidney injury 7.6)
Chronic kidney disease stage IIIb with baseline creatinine 1.6
Gapped metabolic acidosis with associated lactic acidosis (24)
Hypertension
Diabetes
History of rheumatoid arthritis
History of obstructive uropathy with history of ureter stent in 2022
Right nephrectomy in 2007
Left partial nephrectomy in 2021
strep bacteremia with likely IE
Suspected metastatic renal cell carcinoma
Plan:
YOLIE with continued improvement with creatinine now down to 3.7>2.8
Remains nonoliguric
SHIVANI negative for vegetation
maintain frazier
Unasyn renally dosed for strep bacteremia= surveillance cultures negative to date from 08/17
complement levels within normal limits/ASO negative
prerenal
calcium 11.1 . was elevated on admission as well will check PTH although certainly it could be malignant related
Metabolic acidosis has resolved
-
-
Date of Service: August 19, 2024
CC / HPI / ROS
-
Chief Complaint:
YOLIE
History of Present Illness:
YOLIE/Cr improving prerenal
Remains on Unasyn for presumed infectious endocarditis
Hemodynamically stable
frazier, in, nonoliguric
Review of Systems:
no CP/SOB
Weights down
Labs
-
Labs:
WBC 7.3 10^3/uL (4.8-10.8) 08/19/24 04:36
RBC 3.49 10^6/uL (4.20-5.40) L 08/19/24 04:36
Hgb 10.8 g/dL (12.0-16.0) L 08/19/24 04:36
Hct 32.5 % (37.0-47.0) L 08/19/24 04:36
Plt Count 194 10^3/uL (130-400) 08/19/24 04:36
Sodium 141 mmol/L (135-145) 08/19/24 06:05
Potassium 3.4 mmol/L (3.5-5.1) L 08/19/24 06:05
Chloride 103 mmol/L (98-107) 08/19/24 06:05
Carbon Dioxide 27 mmol/L (22-30) 08/19/24 06:05
BUN 38 mg/dl (7-17) H 08/19/24 06:05
Creatinine 2.8 mg/dL (0.6-1.0) H 08/19/24 06:05
eGFR 19.46 08/19/24 06:05
Glucose 116 mg/dl (70-99) H 08/19/24 06:05
Calcium 11.1 mg/dl (8.4-10.2) H 08/19/24 06:05
Albumin 3.4 g/dl (3.5-5.0) L 08/19/24 06:05
Physical Exam
-
Vital Signs:
Vital Signs
Temp Pulse Resp BP Pulse Ox
97.8 F 82 18 151/83 98
08/19/24 13:30 08/19/24 13:30 08/19/24 13:30 08/19/24 13:30 08/19/24 13:30
Respiratory:: Bilateral: CTA
Lung Excursion:: Normal
Abdomen:: Soft
Bowel Sounds:: Normal
Extremity Edema:: None: Bilateral:
Frazier Catheter: Yes
--- NOTE | 2024-08-19 15:23 | W.PN.ID1 ---
Date of Service
Date of Service: August 19, 2024
Today's Communication
- stopped antibiotics
- follow up with her oncologist
Assessment / Plan
Ruled out Endocarditis
Probable viral gastroenteritis vs passage of some urinary sediment - resolved
Immunosuppression on rinvoq
YOLIE on CKD - improving
- remains afebrile
- SHIVANI with a calcified lesion but no evidence of a vegetation
- could restart rinvoq from ID perspective, patient prefers to hold until follow up with the prescribing MD which is reasonable
- stopped antibiotics
- if outpatient fevers, chills, loss of appetite, weight loss - she will represent to the ER
- follow up with her oncologist
Chief Complaint
-: Other (possible endocarditis)
Subjective / Review of Systems
afebrile
bp stable
SHIVANI with a calcified lesion but no evidence of acute endocarditis
no dysursia, urgency or frequency
no complaints
renal function continues to resolve
Vital Signs / Physical Exam
Vital Signs
Vital Signs
Temp Pulse Resp BP Pulse Ox
97.8 F 82 18 151/83 98
08/19/24 13:30 08/19/24 13:30 08/19/24 13:30 08/19/24 13:30 08/19/24 13:30
Physical Exam
Constitutional: No Acute Distress and Chronically Ill
Cardiovascular: Regular Rate and S1/S2; Negative Murmur or Rub
Pulmonary: Clear and Symmetric; Negative Wheezes or Rales
Gastrointestinal: Soft, Non Tender, Non Distended and Normal Bowel Sounds
Skin: Warm and Dry; Negative Rash or Jaundice
Objective Data
Lab Data
Lab Results
08/19/24 04:36
08/19/24 06:05
Estimated Creat Clear 22 ml/min 08/19/24 06:05
Lactic Acid 2.0 mmol/L (0.7-2.0) 08/14/24 04:21
Total Bilirubin 0.8 mg/dl (0.2-1.3) 08/19/24 06:05
AST 151 U/L (14-36) H 08/19/24 06:05
ALT 86 U/L (0-35) H 08/19/24 06:05
Alkaline Phosphatase 272 U/L (38-126) H 08/19/24 06:05
Most recent labs reviewed.
ASO titer negative
Micro Results:
08/15/24 10:12 Blood Culture - Preliminary
Blood/Venous No Growth in 4 days- Final report to follow
08/17/24 06:46 Blood Culture - Preliminary
Blood/Venous No Growth in 48 hours- Final report to follow
08/17/24 04:54 Blood Culture - Preliminary
Blood/Venous No Growth in 48 hours- Final report to follow
08/15/24 15:54 Blood Culture - Preliminary
Blood/Venous No Growth in 72 hours- Final report to follow
08/13/24 13:32 Blood Culture - Preliminary
Blood/Venous Staphylococcus capitis
Gram Stain - Preliminary
08/13/24 11:30 Influenza Types A & B ([facility]RI[facility]) - Final
Nasal Swab Negative for Influenza A & B, NAAT
Negative results must be combined with clinical observations
and patient history.
Nucleic Acid Amplification test (NAAT)performed on the
[employer] platform.
[2024-08-19 16:31] LABS: Glucose - Point of Care 216 mg/dl (70-99)
[2024-08-19] MEDS: NOVOLOG FLEXPEN-MODERATE RESISTANCE 3 UNITS SC (17:24)
--- NOTE | 2024-08-19 19:00 | PTCARENOTE ---
Hat in pt bathroom to gather output. Pt states they keep missing the hat and peeing directly into the toilet and victor manuel any problems urinating. Pt told by this RN that they need to make it in the hat so we can monitor more closely the urine output.
After urinating, pt rang ellison. 50mls of dark punch colored urine in the hat. 120mls post void residual. Pt denies abdominal pain or pain while urinating. She states that her urine has looked like that all day 'from the taylor water ice' she had in
the morning. MD and urology notified. Instructed to monitor output for increased bleeding. Told to continue heparin injections. Will pass along information for oncoming RN.
[2024-08-19 21:53] LABS: Glucose - Point of Care 216 mg/dl (70-99)
[2024-08-19] MEDS: LANTUS 0.08 UNITS SC (22:07)
[2024-08-20 03:00] VITALS: BP 136/71
[2024-08-20] MEDS: SYNTHROID 88 MCG PO (05:20)
[2024-08-20] MEDS: TUMS CHEWABLE TABLET 200 MG PO (05:22)
[2024-08-20 06:00] VITALS: BMI 30.9
[2024-08-20 06:40] LABS: % Basophils 0.1 % (0-2); % Immature Granulocytes 2.3 % (0-0.5); % Lymphocytes 5.1 % (20.5-51.1); % Monocytes 10.1 % (1.7-9.3); % Neutrophils 82.4 % (42.2-75.2); Absolute Immature Granulocytes 0.2 10^3/uL (0-0.05); Absolute Lymphocytes 0.4 10^3/uL (1.2-3.4); Absolute Monocytes 0.7 10^3/uL (0.1-0.6); Absolute Neutrophils 5.7 10^3/uL (1.4-6.5); Hematocrit 31.2 % (37.0-47.0); Mean Corp Hgb Conc. 32.1 g/dL (33.0-37.0); Mean Corpuscular Hgb 30.3 pg (27.0-31.0); Mean Corpuscular Volume 94.5 fL (81.0-99.0); Mean Platelet Volume 10.7 fL (7.4-10.4); Nucleated Red Blood Cells % 0 %; Platelet Count 183 10^3/uL (130-400); Red Cell Dist. Width 16.3 % (11.5-14.5); White Blood Cell Count 6.9 10^3/uL (4.8-10.8)
[2024-08-20 07:06] LABS: ALT (SGPT) 85 U/L (0-35); AST (SGOT) 136 U/L (14-36); Albumin 2.7 g/dl (3.5-5.0); Alkaline Phosphatase 226 U/L (38-126); Blood Urea Nitrogen 31 mg/dl (7-17); Calcium 11.1 mg/dl (8.4-10.2); Carbon Dioxide 26 mmol/L (22-30); Chloride 104 mmol/L (98-107); Estimated Creatinine Clearance 27 ml/min; Glucose 118 mg/dl (70-99); Potassium 3.4 mmol/L (3.5-5.1); Sodium 137 mmol/L (135-145); Total Bilirubin 0.6 mg/dl (0.2-1.3); Total Protein 4.9 g/dl (6.3-8.2); eGFR 24.64
--- NOTE | 2024-08-20 07:09 | W.PN.UPDATE ---
Update Note
Progress Note Update
pt asleep
frazier out- urinating normal volumes
cr continues to decline
suspect some temporary ureteral obstruction- now resolved
pt should f/u with Harley Cheng team
call with any further questions
--- NOTE | 2024-08-20 07:53 | PN.CDI ---
CDI
- -
CDI:
Physician Documentation Request
Admit Date: 08/13/24 16:00
Dear Doctor Laura,
Please review the following and provide your response in the progress notes.
Clinical Indicators:
Pt admitted with YOLIE, bacteremia, and UTI.
08/16 Nephrology note: 'YOLIE persists with creatinine of 7 although remains grossly nonoliguric at 1750...probably ATN but I am unsure of the etiology'
Laboratory Tests
08/13/24 08/14/24 08/15/24
11:30 04:21 03:43
Creatinine 7.6 H* 6.6 H* 7.3 H*
08/18/24 08/20/24
06:04 06:16
Creatinine 3.7 H 2.3 H
Please clarify the following:
ATN was present on admission and is now resolved.
ATN was ruled out
ATN is still a likely, suspected, probable diagnosis
YOLIE on CKD 3b only
Other
Use of terms such as suspected, likely, concern for, or probable (associated with a specific diagnosis that is being evaluated, monitored, or treated as if it exists) are acceptable and can be coded in the inpatient setting, when documented at the
time of discharge.
Thank you,
Diane Abbasi RN, BSN
CDI Specialist
Available via [employer]
Please use your independent medical judgment in providing your response.
[2024-08-20 08:24] LABS: Glucose - Point of Care 104 mg/dl (70-99)
[2024-08-20 08:37] VITALS: BP 148/70
[2024-08-20] MEDS: NOVOLOG FLEXPEN-MODERATE RESISTANCE SC (09:21)
[2024-08-20] MEDS: KCL 20 MEQ PO (09:23)
[2024-08-20] MEDS: HEPARIN 5000 UNITS SC ×2 (09:23→20:14)
[2024-08-20] MEDS: CATAPRES 0.1 MG PO ×2 (09:23→20:14)
[2024-08-20] MEDS: DELTASONE 5 MG PO (09:23)
[2024-08-20] MEDS: LIPITOR 80 MG PO (09:23)
[2024-08-20] MEDS: NORVASC 5 MG PO (09:23)
[2024-08-20 09:47] LABS: Glycohemoglobin (HgbA1c) 7.4 % (4.0-5.6)
--- NOTE | 2024-08-20 09:55 | W.PN.ID1 ---
Date of Service
Date of Service: August 20, 2024
Today's Communication
follow up urine culture
Assessment / Plan
Ruled out Endocarditis
Probable viral gastroenteritis vs passage of some urinary sediment - resolved
Immunosuppression on rinvoq
YOLIE on CKD - improving
- remains afebrile
- UA today, gross hematuria which obstructs the view of wbcs; urine culture in progress
- SHIVANI with a calcified lesion but no evidence of a vegetation
- could restart rinvoq from ID perspective, patient prefers to hold until follow up with the prescribing MD which is reasonable
- stopped antibiotics 08/19
- if outpatient fevers, chills, loss of appetite, weight loss - she will represent to the ER
- follow up urine culture
- follow up with her oncologist
Chief Complaint
-: Other (possible endocarditis)
Subjective / Review of Systems
afebrile
bp stable
urine dark, punch colored
no complaints
Vital Signs / Physical Exam
Vital Signs
Vital Signs
Temp Pulse Resp BP Pulse Ox
98.2 F 65 16 148/70 96
08/20/24 08:37 08/20/24 08:37 08/20/24 08:37 08/20/24 08:37 08/20/24 08:37
Physical Exam
Constitutional: No Acute Distress
Cardiovascular: Regular Rate and S1/S2; Negative Murmur or Rub
Pulmonary: Clear and Symmetric; Negative Wheezes or Rales
Gastrointestinal: Soft, Non Tender, Non Distended and Normal Bowel Sounds
Skin: Warm and Dry; Negative Rash or Jaundice
Objective Data
Lab Data
Lab Results
08/20/24 06:15
08/20/24 06:16
Estimated Creat Clear 27 ml/min 08/20/24 06:16
Lactic Acid 2.0 mmol/L (0.7-2.0) 08/14/24 04:21
Total Bilirubin 0.6 mg/dl (0.2-1.3) 08/20/24 06:16
AST 136 U/L (14-36) H 08/20/24 06:16
ALT 85 U/L (0-35) H 08/20/24 06:16
Alkaline Phosphatase 226 U/L (38-126) H 08/20/24 06:16
Most recent labs reviewed.
Micro Results:
08/17/24 06:46 Blood Culture - Preliminary
Blood/Venous No Growth in 72 hours- Final report to follow
08/17/24 04:54 Blood Culture - Preliminary
Blood/Venous No Growth in 72 hours- Final report to follow
08/15/24 15:54 Blood Culture - Preliminary
Blood/Venous No Growth in 4 days- Final report to follow
08/15/24 10:12 Blood Culture - Preliminary
Blood/Venous No Growth in 4 days- Final report to follow
08/13/24 13:32 Blood Culture - Preliminary
Blood/Venous Staphylococcus capitis
Gram Stain - Preliminary
08/13/24 11:30 Influenza Types A & B ([facility]RIST[facility]) - Final
Nasal Swab Negative for Influenza A & B, NAAT
Negative results must be combined with clinical observations
and patient history.
Nucleic Acid Amplification test (NAAT)performed on the
[employer] platform.
--- NOTE | 2024-08-20 10:05 | W.PN.URO.CBU ---
Today's Communication / Plan
-
Urine for C&S
Observe w/o Randle catheter
Will follow
Assessment / Plan
-
53F with metastatic renal cell ca
solitary left kidney s/p R nephrectomy
ARF
Bacteremia
Undergoing workup and treatment for endocarditis/bacteremia
- Normalized urine output and improving creatinine
- Unclear if this is medical or possibly passage of some ureteral gravel/small stone that was obstructing kidney
- New onset gross hematuria and LLQ discomfort c/w passed/passing left ureteral stone
Diagnosis
-
Date of Service: August 20, 2024
-
Patient Diagnosis:
renal cell ca- metastatic
hx of right nx and partial left nx
? sepsis
ARF
---
New onset gross hematuria with LLQ discomfort 08/19/24
Subjective
-
c/o indigestion and some left lower quadrant discomfort
No dysuria or heightened urine frequency
Objective
-
Vital Signs
Temp Pulse Resp BP Pulse Ox
98.2 F 65 16 148/70 96
08/20/24 08:37 08/20/24 08:37 08/20/24 08:37 08/20/24 08:37 08/20/24 08:37
Intake and Output
08/19/24 08/20/24 08/21/24
06:59 06:59 06:59
Intake Total 1740 / 1740 1200 / 1200 480 / 480
Output Total 450 / 450 50 / 50 750 / 750
Balance 1290 / 1290 1150 / 1150 -270 / -270
Intake:
Oral fluids 1740 / 1740 1200 / 1200 480 / 480
Output:
Urine, Voided 450 / 450 50 / 50 750 / 750
Other:
Number of approximated MODERATE 3 4
amounts of urine
Number of approximated LARGE 1
amounts of urine
Laboratory Results
08/20/24 06:15
08/20/24 06:16
Review of Systems
-
Constitutional: Fatigue
Respiratory: No Symptoms
Cardiac: No Symptoms
Abdomen/GI: Abdominal Pain
: Bleeding
Physical Exam
-
General - well developed, well nourished, no acute distress
Abdomen - soft, mild tenderness left lower quadrant to palpation w/o left CVAT
[2024-08-20 11:33] VITALS: BP 131/79
[2024-08-20 11:47] LABS: Glucose - Point of Care 188 mg/dl (70-99)
--- NOTE | 2024-08-20 12:36 | W.PN.HOSP.TC ---
Today's Communication/Plan
-
Monitor vital signs
see plan
Check UA
Monitor hematuria
Urology following
Assessment / Plan
Assessment / Plan
53yo F with PMHX of RCC s/p R nephrectomy and partial L nephrectomy, CKD stage 3, Hx of nephrolithiasis, recent chemotherapy cycle that was terminated due to worsening nausea came with nausea, vomiting and minimal diarrhea over past 2 days prior to
admission, managed for complicated UTI with nephrolithiasis, bacteremia, YOLIE and also mild hypoxemia, found aortic vegetations with positive Bcx concerning for endocarditis so SHIVANI pending for 08/19/[address]
Plan [address] Cain ([facility] oncologist) [phone]
A/P:
# non-obstructive nephrolithiasis and mild dilation of the L upper calyces
#Nausea most likely intolerance of the recent chemo
Urology consult: monitoring, deferred stent placement with no clear signs of obstruction causing YOLIE and improvement of kidney function. Could not exclude stone passage
Urine not indicative of infection; check ua again
Zofran
#Bacteremia with concern for Endocarditis
Endocarditis ruled out
Staph.capitis sensitive to Unasyn in 1 set (unfortunately only 1 done on admission), now appears to be contamination
Hx of strep. UTI
with ill defined mass L kidney - stable, discussed drain with IRAD on admission, at this time not indicated
Repeat Bcx NTD
UA neg
Echo: with Probable vegetation on the noncoronary cusp of the aortic valve and concern for mitral valve vegetations
Cardiology scheduled SHIVANI for 08/19/24 appears likely calcification; no clear vegetation
ID following, now off antibiotic
#Acute hypoxic insufficiency
#Atelectasis
R hemidiaphragm elevation
Bronchodilators
dec steroids back to 5mg prednisone which she takes for RA
Incentive spirometry
#YOLIE on CKD stage 3, non-oliguric
most likely hypovolemic 2/2 dehydration
freddie dc'ed; monitor
serial BMP
Nephrology: ASO and complement neg
cr slowly improving
Hypokalemia
Replete
LLQ pain; could be possible that she is passing stone. Hematuria
Continue to monitor
Urology following
#RCC with liver lesions and L kidney mass and lithic osseous mets on L humeral head
cont follow up with [facility] upon d/c
#DJD
tylenol
#DM type 2 with nephropathy
DM diet, accuchecks, Insulin SS
cw glargine
holding metformin
A1c 7.4
#elevated LFT's
#Alk.phos elevation
follow LFT
HepC Ab neg
No CBD dilation and no signs of gall bladder pathology on US
#Anemia of chronic disease
minimal
monitor CBC
mild hypercalcemia
monitor
#Essential HTN
#HLD
#hypothyroidism
#RA on steroids
Hold Rinvoq
TSH WNL
cont home meds
Gradually restart antihypertensives meds since hypotension 2/2 dehydration on admission. restarted clonidine
DVT ppx hep
Full code
General: Comfortable
HEENT: Normocephalic
Respiratory: Clear to Auscultation
GI: Soft, Nontender and Nondistended
Genito-urinary: Randle
Musculoskeletal: No Clubbing, No Cyanosis and No Edema
Neuro: Awake, Alert, Oriented and AO x 3
Psych: Calm
I have spent at least 52 min reviewing chart, test results, communication with consultants and direct patient care
Anticipated Discharge: 24 - 48 hours
Subjective/Interval History
-
Date of Service: August 20, 2024
has mild LLQ pain
Objective Data
-
Labs:
Laboratory Results
08/20/24 08/20/24
06:15 06:16
WBC 6.9
Hgb 10.0 L
Hct 31.2 L
Plt Count 183
Sodium 137
Potassium 3.4 L
Chloride 104
Carbon Dioxide 26
BUN 31 H
Creatinine 2.3 H
Glucose 118 H
Calcium 11.1 H
Total Bilirubin 0.6
AST 136 H
ALT 85 H
Alkaline Phosphatase 226 H
Vital Signs:
Vital Signs
Temp Pulse Resp BP Pulse Ox
97.3 F 99 18 131/79 96
08/20/24 11:33 08/20/24 11:33 08/20/24 11:33 08/20/24 11:33 08/20/24 11:33
I&O
08/19/24 08/20/24 08/21/24
06:59 06:59 06:59
Intake Total 1740 / 1740 1200 / 1200 480 / 480
Output Total 450 / 450 50 / 50 750 / 750
Balance 1290 / 1290 1150 / 1150 -270 / -270
[2024-08-20] MEDS: NOVOLOG FLEXPEN-MODERATE RESISTANCE 1 UNITS SC ×2 (13:46→17:39)
[2024-08-20 14:10] LABS: Urine Albumin 2+ (Neg - Trace); Urine Bilirubin Negative (Negative); Urine Character Very Cloudy (Clear); Urine Color Red; Urine Glucose 1+ (Negative); Urine Ketone Negative (Negative); Urine Leukocyte 1+ (Negative); Urine Nitrite Negative (Negative); Urine Occult Blood 4+ (Negative); Urine Urobilinogen Negative (Neg - 1+); Urine pH 6.5 (5.0-9.0)
[2024-08-20 14:25] LABS: Urine Squamous Cell SEEN /LPF (Few)
[2024-08-20 14:26] LABS: Urine Red Blood Cell >100 /HPF (0-2)
[2024-08-20 15:45] VITALS: BP 139/69
--- NOTE | 2024-08-20 16:08 | W.PN.NEPH.PH ---
Today's Communication / Plan
-
ivf
Assessment/Plan
-
Impression:
Nausea vomiting abdominal pain
Acute kidney injury 7.6)
Chronic kidney disease stage IIIb with baseline creatinine 1.6
Gapped metabolic acidosis with associated lactic acidosis (24)
Hypertension
Diabetes
History of rheumatoid arthritis
History of obstructive uropathy with history of ureter stent in 2022
Right nephrectomy in 2007
Left partial nephrectomy in 2021
strep bacteremia with likely IE
Suspected metastatic renal cell carcinoma
Plan:
creatinine initially greater than 7 , continued improvement with creatinine now down to 3.7>2.8>2.3
Remains nonoliguric
SHIVANI negative for vegetation
maintain frazier
strep bacteremia= surveillance cultures negative to date from 08/17= antibiotics discontinued
complement levels Mildly low C4 12.9 /ASO negative
prerenal
calcium 11.1 . was elevated on admission as well will check PTH although certainly likely malignant related= will restart IV fluids
Metabolic acidosis has resolved
today hematuria/ urine culture ordered
-
-
Date of Service: August 20, 2024
CC / HPI / ROS
-
Chief Complaint:
YOLIE
History of Present Illness:
YOLIE/Cr improving prerenal
Remains on Unasyn for presumed infectious endocarditis
Hemodynamically stable
frazier, in, nonoliguric
Review of Systems:
no CP/SOB
Weights down
Labs
-
Labs:
WBC 6.9 10^3/uL (4.8-10.8) 08/20/24 06:15
RBC 3.30 10^6/uL (4.20-5.40) L 08/20/24 06:15
Hgb 10.0 g/dL (12.0-16.0) L 08/20/24 06:15
Hct 31.2 % (37.0-47.0) L 08/20/24 06:15
Plt Count 183 10^3/uL (130-400) 08/20/24 06:15
Sodium 137 mmol/L (135-145) 08/20/24 06:16
Potassium 3.4 mmol/L (3.5-5.1) L 08/20/24 06:16
Chloride 104 mmol/L (98-107) 08/20/24 06:16
Carbon Dioxide 26 mmol/L (22-30) 08/20/24 06:16
BUN 31 mg/dl (7-17) H 08/20/24 06:16
Creatinine 2.3 mg/dL (0.6-1.0) H 08/20/24 06:16
eGFR 24.64 08/20/24 06:16
Glucose 118 mg/dl (70-99) H 08/20/24 06:16
Calcium 11.1 mg/dl (8.4-10.2) H 08/20/24 06:16
Albumin 2.7 g/dl (3.5-5.0) L 08/20/24 06:16
Physical Exam
-
Vital Signs:
Vital Signs
Temp Pulse Resp BP Pulse Ox
97.8 F 81 18 139/69 98
08/20/24 15:45 08/20/24 15:45 08/20/24 15:45 08/20/24 15:45 08/20/24 15:45
Respiratory:: Bilateral: CTA
Lung Excursion:: Normal
Abdomen:: Soft
Bowel Sounds:: Normal
Extremity Edema:: None: Bilateral:
Frazier Catheter: Yes
[2024-08-20 16:43] LABS: Glucose - Point of Care 167 mg/dl (70-99)
[2024-08-20] MEDS: ULTRAM 50 MG PO (16:43)
[2024-08-20 19:20] VITALS: BP 134/70
[2024-08-20 21:40] LABS: Glucose - Point of Care 191 mg/dl (70-99)
[2024-08-20] MEDS: LANTUS 0.08 UNITS SC (22:06)
[2024-08-20 23:42] VITALS: BP 127/69
[2024-08-21 03:15] VITALS: BP 134/82
[2024-08-21] MEDS: SYNTHROID 88 MCG PO (05:38)
[2024-08-21 06:00] VITALS: BMI 31.0
[2024-08-21 07:20] LABS: % Basophils 0.4 % (0-2); % Immature Granulocytes 4.2 % (0-0.5); % Lymphocytes 5.7 % (20.5-51.1); % Monocytes 8.6 % (1.7-9.3); % Neutrophils 81.1 % (42.2-75.2); Absolute Immature Granulocytes 0.3 10^3/uL (0-0.05); Absolute Lymphocytes 0.4 10^3/uL (1.2-3.4); Absolute Monocytes 0.6 10^3/uL (0.1-0.6); Absolute Neutrophils 5.9 10^3/uL (1.4-6.5); Hematocrit 30.3 % (37.0-47.0); Hemoglobin 10.1 g/dL (12.0-16.0); Mean Corp Hgb Conc. 33.3 g/dL (33.0-37.0); Mean Corpuscular Hgb 31.2 pg (27.0-31.0); Mean Corpuscular Volume 93.5 fL (81.0-99.0); Mean Platelet Volume 11.5 fL (7.4-10.4); Nucleated Red Blood Cells % 0.3 %; Platelet Count 184 10^3/uL (130-400); Red Blood Cell Count 3.24 10^6/uL (4.20-5.40); White Blood Cell Count 7.3 10^3/uL (4.8-10.8)
[2024-08-21 07:25] VITALS: BP 136/79
[2024-08-21 07:33] LABS: ALT (SGPT) 102 U/L (0-35); AST (SGOT) 144 U/L (14-36); Albumin 2.7 g/dl (3.5-5.0); Alkaline Phosphatase 249 U/L (38-126); Blood Urea Nitrogen 28 mg/dl (7-17); Calcium 11.8 mg/dl (8.4-10.2); Carbon Dioxide 28 mmol/L (22-30); Chloride 102 mmol/L (98-107); Estimated Creatinine Clearance 28 ml/min; Glucose 105 mg/dl (70-99); Potassium 3.5 mmol/L (3.5-5.1); Sodium 133 mmol/L (135-145); Total Bilirubin 0.5 mg/dl (0.2-1.3); Total Protein 4.8 g/dl (6.3-8.2); eGFR 25.99
[2024-08-21 07:39] LABS: Glucose - Point of Care 108 mg/dl (70-99)
[2024-08-21] MEDS: NOVOLOG FLEXPEN-MODERATE RESISTANCE SC (08:27)
[2024-08-21] MEDS: NORVASC 5 MG PO (08:30)
[2024-08-21] MEDS: LIPITOR 80 MG PO (08:30)
[2024-08-21] MEDS: DELTASONE 5 MG PO (08:30)
[2024-08-21] MEDS: CATAPRES 0.1 MG PO ×2 (08:30→20:35)
[2024-08-21] MEDS: HEPARIN 5000 UNITS SC ×2 (08:30→20:35)
[2024-08-21] MEDS: ULTRAM 50 MG PO (08:34)
[2024-08-21 10:13] LABS: Intact PTH 10.9 pg/ml (13.6-85.8)
[2024-08-21 10:47] VITALS: BP 123/69
--- NOTE | 2024-08-21 11:25 | W.PN.NEPH.PH ---
Today's Communication / Plan
-
follow bmp
Assessment/Plan
-
Impression:
Nausea vomiting abdominal pain
Acute kidney injury 7.6)
Chronic kidney disease stage IIIb with baseline creatinine 1.6
Gapped metabolic acidosis with associated lactic acidosis (24)
Hypertension
Diabetes
History of rheumatoid arthritis
History of obstructive uropathy with history of ureter stent in 2022
Right nephrectomy in 2007
Left partial nephrectomy in 2021
strep bacteremia with likely IE
Suspected metastatic renal cell carcinoma
Plan:
creatinine initially greater than 7 , continued improvement with creatinine now down to 3.7>2.8>2.2,non oliguric
Calcium up to 11.8, pth 10.9
d/c calcium supplements
pth rp pending
if calcium greater tomorrow will provide pamidronate
Remains nonoliguric
SHIVANI negative for vegetation
maintain frazier :hematuria continues
strep bacteremia= surveillance cultures negative to date from 08/17= antibiotics discontinued
complement levels Mildly low C4 12.9 /ASO negative
prerenal
Metabolic acidosis has resolved
hematuria/ urine culture ordered:negative
-
-
Date of Service: August 21, 2024
CC / HPI / ROS
-
Chief Complaint:
YOLIE
History of Present Illness:
YOLIE/Cr improving prerenal
hypercalcemia worsening
Hemodynamically stable
frazier, in, nonoliguric
Review of Systems:
no CP/SOB
Weights down
Labs
-
Labs:
WBC 7.3 10^3/uL (4.8-10.8) 08/21/24 06:43
RBC 3.24 10^6/uL (4.20-5.40) L 08/21/24 06:43
Hgb 10.1 g/dL (12.0-16.0) L 08/21/24 06:43
Hct 30.3 % (37.0-47.0) L 08/21/24 06:43
Plt Count 184 10^3/uL (130-400) 08/21/24 06:43
Sodium 133 mmol/L (135-145) L 08/21/24 06:43
Potassium 3.5 mmol/L (3.5-5.1) 08/21/24 06:43
Chloride 102 mmol/L (98-107) 08/21/24 06:43
Carbon Dioxide 28 mmol/L (22-30) 08/21/24 06:43
BUN 28 mg/dl (7-17) H 08/21/24 06:43
Creatinine 2.2 mg/dL (0.6-1.0) H 08/21/24 06:43
eGFR 25.99 08/21/24 06:43
Glucose 105 mg/dl (70-99) H 08/21/24 06:43
Calcium 11.8 mg/dl (8.4-10.2) H 08/21/24 06:43
Albumin 2.7 g/dl (3.5-5.0) L 08/21/24 06:43
Physical Exam
-
Vital Signs:
Vital Signs
Temp Pulse Resp BP Pulse Ox
97.6 F 86 18 123/69 97
08/21/24 10:47 08/21/24 10:47 08/21/24 10:47 08/21/24 10:47 08/21/24 10:47
Cardiovascular:: Regular rate and rhythm
Respiratory:: Bilateral: CTA
Lung Excursion:: Normal
Abdomen:: Nontender and Soft
Bowel Sounds:: Normal
Extremity Edema:: +1: Bilateral:
Frazier Catheter: No
--- NOTE | 2024-08-21 11:40 | W.PN.HOSP.TC ---
Today's Communication/Plan
-
Monitor vital signs see plan
Monitor hematuria
Urology to see today
Check CT abdomen/pelvis
Assessment / Plan
Assessment / Plan
53yo F with PMHX of RCC s/p R nephrectomy and partial L nephrectomy, CKD stage 3, Hx of nephrolithiasis, recent chemotherapy cycle that was terminated due to worsening nausea came with nausea, vomiting and minimal diarrhea over past 2 days prior to
admission, managed for complicated UTI with nephrolithiasis, bacteremia, YOLIE and also mild hypoxemia, found aortic vegetations with positive Bcx concerning for endocarditis so SHIVANI pending for 08/19/[address] Cain ([facility] oncologist) [phone]
A/P:
# non-obstructive nephrolithiasis and mild dilation of the L upper calyces
#Nausea most likely intolerance of the recent chemo
Urology consult: monitoring, deferred stent placement with no clear signs of obstruction causing YOLIE and improvement of kidney function. Could not exclude stone passage
check CT abdomen/pelvis again
Urine not indicative of infection
Zofran
#Bacteremia with concern for Endocarditis
Endocarditis ruled out
Staph.capitis sensitive to Unasyn in 1 set (unfortunately only 1 done on admission), now appears to be contamination
Hx of strep. UTI
with ill defined mass L kidney - stable, discussed drain with IRAD on admission, at this time not indicated
Repeat Bcx NTD
UA neg
Echo: with Probable vegetation on the noncoronary cusp of the aortic valve and concern for mitral valve vegetations
Cardiology scheduled SHIVANI for 08/19/24 appears likely calcification; no clear vegetation
ID following, now off antibiotic
#Acute hypoxic insufficiency
#Atelectasis
R hemidiaphragm elevation
Bronchodilators
dec steroids back to 5mg prednisone which she takes for RA
Incentive spirometry
#YOLIE on CKD stage 3, non-oliguric
most likely hypovolemic 2/2 dehydration
frazier dc'ed; monitor
serial BMP
Nephrology: ASO and complement neg
cr slowly improving
Hypokalemia
improving
Hyponatremia
Monitor
Hypercalcemia
Monitor
Nephrology following
Could be from malignancy
LLQ pain; could be possible that she is passing stone. Hematuria
Continue to monitor
Urology following
check CT abd/pelvis
#RCC with liver lesions and L kidney mass and lithic osseous mets on L humeral head
cont follow up with [facility] upon d/c
#DJD
tylenol
#DM type 2 with nephropathy
DM diet, accuchecks, Insulin SS
cw glargine
holding metformin
A1c 7.4
#elevated LFT's
#Alk.phos elevation
follow LFT
HepC Ab neg
No CBD dilation and no signs of gall bladder pathology on US however does have liver mets
#Anemia of chronic disease
minimal
monitor CBC
#Essential HTN
#HLD
#hypothyroidism
#RA on steroids
Hold Rinvoq
TSH WNL
cont home meds
Gradually restart antihypertensives meds since hypotension 2/2 dehydration on admission. restarted clonidine
DVT ppx hep
Full code
General: Comfortable
HEENT: Normocephalic
Respiratory: Clear to Auscultation
GI: Soft, Nontender and Nondistended
Genito-urinary: Frazier
Musculoskeletal: No Clubbing, No Cyanosis and No Edema
Neuro: Awake, Alert, Oriented and AO x 3
Psych: Calm
I have spent at least 53 min reviewing chart, test results, communication with consultants and direct patient care
Anticipated Discharge: 24 - 48 hours
Subjective/Interval History
-
Date of Service: August 21, 2024
does have left sided pain
Objective Data
-
Labs:
Laboratory Results
08/21/24 08/21/24
06:00 06:43
WBC 7.3
Hgb 10.1 L
Hct 30.3 L
Plt Count 184
Sodium Cancelled 133 L
Potassium Cancelled 3.5
Chloride Cancelled 102
Carbon Dioxide Cancelled 28
BUN Cancelled 28 H
Creatinine Cancelled 2.2 H
Glucose Cancelled 105 H
Calcium Cancelled 11.8 H
Total Bilirubin Cancelled 0.5
AST Cancelled 144 H
ALT Cancelled 102 H
Alkaline Phosphatase Cancelled 249 H
Vital Signs:
Vital Signs
Temp Pulse Resp BP Pulse Ox
97.6 F 86 18 123/69 97
08/21/24 10:47 08/21/24 10:47 08/21/24 10:47 08/21/24 10:47 08/21/24 10:47
I&O
08/20/24 08/21/24 08/22/24
06:59 06:59 06:59
Intake Total 1200 / 1200 1680 / 1680
Output Total 50 / 50 1200 / 1200
Balance 1150 / 1150 480 / 480
[2024-08-21 11:46] LABS: Glucose - Point of Care 174 mg/dl (70-99)
[2024-08-21] MEDS: NOVOLOG FLEXPEN-MODERATE RESISTANCE 1 UNITS SC (11:52)
[2024-08-21 13:35] LABS: Glucose - Point of Care 155 mg/dl (70-99)
[2024-08-21 14:57] VITALS: BP 118/65
--- NOTE | 2024-08-21 15:33 | PTCARENOTE ---
Update given over the phone to [facility] nurse navigator, Zandra. Nurse navigator requested oncologist Dr. Guidry's phone number ([phone]) be passed along to hospitalist. Dr. Givens made aware.
[2024-08-21 16:13] LABS: Glucose - Point of Care 239 mg/dl (70-99)
[2024-08-21] MEDS: NSS 1000 IV (16:28)
[2024-08-21] MEDS: NOVOLOG FLEXPEN-MODERATE RESISTANCE 3 UNITS SC (16:35)
--- NOTE | 2024-08-21 17:33 | W.PN.ID1 ---
Date of Service
Date of Service: August 21, 2024
Today's Communication
ID service will no longer actively follow this patient please recall for further questions
Assessment / Plan
Ruled out Endocarditis
Probable viral gastroenteritis vs passage of some urinary sediment - resolved
Immunosuppression on rinvoq
YOILE on CKD - improving
- remains afebrile
- UA today, gross hematuria which obstructs the view of wbcs; urine culture negative
- SHIVANI with a calcified lesion but no evidence of a vegetation
- could restart rinvoq from ID perspective, patient prefers to hold until follow up with the prescribing MD which is reasonable
- stopped antibiotics 08/19
- if outpatient fevers, chills, loss of appetite, weight loss - she will represent to the ER
- follow up with her oncologist
ID service will no longer actively follow this patient please recall for further questions
Chief Complaint
-: Other (possible endocarditis)
Vital Signs / Physical Exam
Vital Signs
Vital Signs
Temp Pulse Resp BP Pulse Ox
98.0 F 89 17 118/65 95
08/21/24 14:57 08/21/24 14:57 08/21/24 14:57 08/21/24 14:57 08/21/24 14:57
Objective Data
Lab Data
Lab Results
08/21/24 06:43
08/21/24 06:43
Estimated Creat Clear 28 ml/min 08/21/24 06:43
Lactic Acid 2.0 mmol/L (0.7-2.0) 08/14/24 04:21
Total Bilirubin 0.5 mg/dl (0.2-1.3) 08/21/24 06:43
AST 144 U/L (14-36) H 08/21/24 06:43
ALT 102 U/L (0-35) H 08/21/24 06:43
Alkaline Phosphatase 249 U/L (38-126) H 08/21/24 06:43
Most recent labs reviewed.
Micro Results:
08/13/24 13:32 Blood Culture - Final
Blood/Venous Staphylococcus capitis
Gram Stain - Final
08/20/24 13:58 Urine Culture - Final
Urine NO GROWTH
08/17/24 06:46 Blood Culture - Preliminary
Blood/Venous No Growth in 4 days- Final report to follow
08/17/24 04:54 Blood Culture - Preliminary
Blood/Venous No Growth in 4 days- Final report to follow
08/15/24 15:54 Blood Culture - Final
Blood/Venous No Growth - Final Report
08/15/24 10:12 Blood Culture - Final
Blood/Venous No Growth - Final Report
08/13/24 11:30 Influenza Types A & B (CHRISTY) - Final
Nasal Swab Negative for Influenza A & B, NAAT
Negative results must be combined with clinical observations
and patient history.
Nucleic Acid Amplification test (NAAT)performed on the
[employer] platform.
--- NOTE | 2024-08-21 17:38 | W.PN.URO.CBU ---
Today's Communication / Plan
-
CT scan today revealed no interval change in the position of the 2 left LP renal calculi. No hydronephrosis evident
Assessment / Plan
-
53F with metastatic renal cell ca
solitary left kidney s/p R nephrectomy
ARF
Bacteremia
Left nephrolithiasis
Undergoing workup and treatment for endocarditis/bacteremia
- Normalized urine output and improving creatinine
- Unclear if this is medical or possibly passage of some ureteral gravel/small stone that was obstructing kidney
- New onset gross hematuria and LLQ discomfort c/w passed/passing left ureteral stone: hematuria persists as of 08/21/24, LLQ pain has reseolved
Diagnosis
-
Date of Service: August 21, 2024
-
Patient Diagnosis:
renal cell ca- metastatic
hx of right nx and partial left nx
? sepsis
ARF: continues to improve w/o intervention.
Left nephrolithiasis
---
New onset gross hematuria with LLQ discomfort 08/19/24
Gross hematuria persists as of 08/21/24, LLQ has largely resolved
Subjective
-
No left lower quadrant pain or left CVAT
Objective
-
Vital Signs
Temp Pulse Resp BP Pulse Ox
98.0 F 89 17 118/65 95
08/21/24 14:57 08/21/24 14:57 08/21/24 14:57 08/21/24 14:57 08/21/24 14:57
Intake and Output
08/20/24 08/21/24 08/22/24
06:59 06:59 06:59
Intake Total 1200 / 1200 1680 / 1680 600 / 600
Output Total 50 / 50 1200 / 1200 500 / 500
Balance 1150 / 1150 480 / 480 100 / 100
Intake:
Oral fluids 1200 / 1200 1680 / 1680 600 / 600
Output:
Urine, Voided 50 / 50 1200 / 1200 500 / 500
Other:
Number of approximated MODERATE 4
amounts of urine
Number of approximated LARGE 3
amounts of urine
Laboratory Results
08/21/24 06:43
08/21/24 06:43
Review of Systems
-
Constitutional: Fatigue
Respiratory: No Symptoms
Cardiac: No Symptoms
: Bleeding
Physical Exam
-
General - no acute distress
Abdomen - soft, non-tender
Counseling
-
Repeat urine culture negative
CT scan w/o change firom 08/13/24 study
Hematuria likely related to catheter trauma and should resolve
[2024-08-21 22:08] LABS: Glucose - Point of Care 182 mg/dl (70-99)
[2024-08-21] MEDS: LANTUS 0.08 UNITS SC (22:08)
[2024-08-21 23:14] VITALS: BP 109/59
[2024-08-22] MEDS: SYNTHROID 88 MCG PO (05:39)
[2024-08-22 05:44] VITALS: BMI 31.2
[2024-08-22 06:00] VITALS: BMI 31.2
[2024-08-22 07:30] VITALS: BP 136/83
[2024-08-22 07:43] LABS: Glucose - Point of Care 98 mg/dl (70-99)
[2024-08-22] MEDS: NOVOLOG FLEXPEN-MODERATE RESISTANCE SC ×3 (07:51→17:06)
[2024-08-22] MEDS: LIPITOR 80 MG PO (07:51)
[2024-08-22] MEDS: CATAPRES 0.1 MG PO ×2 (07:51→21:44)
[2024-08-22] MEDS: DELTASONE 5 MG PO (07:51)
[2024-08-22] MEDS: NORVASC 5 MG PO (07:57)
[2024-08-22] MEDS: HEPARIN 5000 UNITS SC (07:58)
[2024-08-22] MEDS: ULTRAM 50 MG PO ×2 (08:06→23:35)
[2024-08-22 08:09] LABS: ALT (SGPT) 99 U/L (0-35); AST (SGOT) 129 U/L (14-36); Albumin 2.6 g/dl (3.5-5.0); Alkaline Phosphatase 248 U/L (38-126); Blood Urea Nitrogen 24 mg/dl (7-17); Calcium 11.9 mg/dl (8.4-10.2); Carbon Dioxide 25 mmol/L (22-30); Chloride 103 mmol/L (98-107); Estimated Creatinine Clearance 31 ml/min; Glucose 96 mg/dl (70-99); Potassium 3.2 mmol/L (3.5-5.1); Sodium 133 mmol/L (135-145); Total Bilirubin 0.5 mg/dl (0.2-1.3); Total Protein 4.7 g/dl (6.3-8.2); eGFR 29.14
[2024-08-22 08:17] LABS: % Basophils 0.3 % (0-2); % Immature Granulocytes 4.1 % (0-0.5); % Lymphocytes 5.6 % (20.5-51.1); % Monocytes 7.3 % (1.7-9.3); % Neutrophils 82.7 % (42.2-75.2); Absolute Immature Granulocytes 0.3 10^3/uL (0-0.05); Absolute Lymphocytes 0.4 10^3/uL (1.2-3.4); Absolute Monocytes 0.5 10^3/uL (0.1-0.6); Absolute Neutrophils 6.1 10^3/uL (1.4-6.5); Hematocrit 30.1 % (37.0-47.0); Hemoglobin 9.9 g/dL (12.0-16.0); Mean Corp Hgb Conc. 32.9 g/dL (33.0-37.0); Mean Corpuscular Hgb 30.6 pg (27.0-31.0); Mean Corpuscular Volume 92.9 fL (81.0-99.0); Mean Platelet Volume 11.4 fL (7.4-10.4); Nucleated Red Blood Cells % 0 %; Platelet Count 178 10^3/uL (130-400); Red Blood Cell Count 3.24 10^6/uL (4.20-5.40); Red Cell Dist. Width 16.2 % (11.5-14.5); White Blood Cell Count 7.4 10^3/uL (4.8-10.8)
[2024-08-22] MEDS: KCL ELIXIR 40 MEQ PO (09:57)
--- NOTE | 2024-08-22 10:54 | W.PN.NEPH.PH ---
Today's Communication / Plan
-
IV pamidronate provided for hypercalcemia
Potassium repletion
Follow-up BMP
Assessment/Plan
-
Impression:
Nausea vomiting abdominal pain
Acute kidney injury 7.6)
Chronic kidney disease stage IIIb with baseline creatinine 1.6
Gapped metabolic acidosis with associated lactic acidosis (24)
Hypertension
Diabetes
History of rheumatoid arthritis
History of obstructive uropathy with history of ureter stent in 2022
Right nephrectomy in 2007
Left partial nephrectomy in 2021
strep bacteremia with likely IE
Suspected metastatic renal cell carcinoma
Plan:
creatinine initially greater than 7 , continued improvement with creatinine now down to 3.7>2.8>2,non oliguric
Calcium up to 11.9, pth 10.9
Hypercalcemia likely a function of malignancy will provide IV pamidronate today
Potassium being repleted this morning
Remains nonoliguric
SHIVANI negative for vegetation
CT scan of abdomen and pelvis did not reveal obstructive stone and hematuria is thought to be likely due to underlying malignancy
strep bacteremia= surveillance cultures negative to date from 08/17= antibiotics discontinued
complement levels Mildly low C4 12.9 /ASO negative
Metabolic acidosis has resolved
hematuria/ urine culture ordered:negative
-
-
Date of Service: August 22, 2024
CC / HPI / ROS
-
Chief Complaint:
YOLIE
History of Present Illness:
YOLIE/Cr improving to 2
hypercalcemia worsening
Hemodynamically stable
Review of Systems:
no CP/SOB
Weights down
Labs
-
Labs:
WBC 7.4 10^3/uL (4.8-10.8) 08/22/24 07:09
RBC 3.24 10^6/uL (4.20-5.40) L 08/22/24 07:09
Hgb 9.9 g/dL (12.0-16.0) L 08/22/24 07:09
Hct 30.1 % (37.0-47.0) L 08/22/24 07:09
Plt Count 178 10^3/uL (130-400) 08/22/24 07:09
Sodium 133 mmol/L (135-145) L 08/22/24 07:09
Potassium 3.2 mmol/L (3.5-5.1) L 08/22/24 07:09
Chloride 103 mmol/L (98-107) 08/22/24 07:09
Carbon Dioxide 25 mmol/L (22-30) 08/22/24 07:09
BUN 24 mg/dl (7-17) H 08/22/24 07:09
Creatinine 2.0 mg/dL (0.6-1.0) H 08/22/24 07:09
eGFR 29.14 08/22/24 07:09
Glucose 96 mg/dl (70-99) 08/22/24 07:09
Calcium 11.9 mg/dl (8.4-10.2) H 08/22/24 07:09
Albumin 2.6 g/dl (3.5-5.0) L 08/22/24 07:09
Physical Exam
-
Vital Signs:
Vital Signs
Temp Pulse Resp BP Pulse Ox
97.4 F 96 16 136/83 98
08/22/24 07:30 08/22/24 07:51 08/22/24 07:30 08/22/24 07:51 08/22/24 07:30
Cardiovascular:: Regular rate and rhythm
Respiratory:: Bilateral: CTA
Lung Excursion:: Normal
Abdomen:: Nontender and Soft
Bowel Sounds:: Normal
Extremity Edema:: +1: Bilateral:
Randle Catheter: No
[2024-08-22 11:39] LABS: Glucose - Point of Care 132 mg/dl (70-99)
--- NOTE | 2024-08-22 11:57 | W.PN.HOSP.TC ---
Today's Communication/Plan
-
Monitor vital signs see plan
Monitor calcium
Start pamidronate
Hopeful DC tomorrow
Assessment / Plan
Assessment / Plan
53yo F with PMHX of RCC s/p R nephrectomy and partial L nephrectomy, CKD stage 3, Hx of nephrolithiasis, recent chemotherapy cycle that was terminated due to worsening nausea came with nausea, vomiting and minimal diarrhea over past 2 days prior to
admission, managed for complicated UTI with nephrolithiasis, bacteremia, YOLIE and also mild hypoxemia, found aortic vegetations with positive Bcx concerning for endocarditis so SHIVANI pending for 08/19/24
Plan [address] Cain ([facility] oncologist) [phone]
A/P:
# non-obstructive nephrolithiasis and mild dilation of the L upper calyces
#Nausea most likely intolerance of the recent chemo
Urology consult: monitoring, deferred stent placement with no clear signs of obstruction causing YOLIE and improvement of kidney function. Could not exclude stone passage
check CT abdomen/pelvis 08/21/2024 with nonobstructed stone. I spoke with patient's oncology Dr. Guidry and it appears the patient is likely bleeding from her malignancy. Patient oncology will see patient soon outpatient for further treatment
discussion. Plan today is for pamidronate with possibility of discharge tomorrow
Urine not indicative of infection
Zofran
#Bacteremia with concern for Endocarditis
Endocarditis ruled out
Staph.capitis sensitive to Unasyn in 1 set (unfortunately only 1 done on admission), now appears to be contamination
Hx of strep. UTI
with ill defined mass L kidney - stable, discussed drain with IRAD on admission, at this time not indicated
Repeat Bcx NTD
UA neg
Echo: with Probable vegetation on the noncoronary cusp of the aortic valve and concern for mitral valve vegetations
Cardiology scheduled SHIVANI for 08/19/24 appears likely calcification; no clear vegetation
ID following, now off antibiotic
#Acute hypoxic insufficiency
#Atelectasis
R hemidiaphragm elevation
Bronchodilators
dec steroids back to 5mg prednisone which she takes for RA
Incentive spirometry
#YOLIE on CKD stage 3, non-oliguric
most likely hypovolemic 2/2 dehydration
frazier dc'ed; monitor
serial BMP
Nephrology: ASO and complement neg
cr slowly improving
Hypokalemia
improving
Hyponatremia
Monitor
Hypercalcemia
Monitor
Nephrology following
Could be from malignancy
Started pamidronate by nephrology
LLQ pain; could be possible that she is passing stone. Hematuria
Continue to monitor
Urology following
check CT abd/pelvis
#RCC with liver lesions and L kidney mass and lithic osseous mets on L humeral head
cont follow up with [facility] upon d/c
#DJD
tylenol
#DM type 2 with nephropathy
DM diet, accuchecks, Insulin SS
cw glargine
holding metformin
A1c 7.4
#elevated LFT's
#Alk.phos elevation
follow LFT
HepC Ab neg
No CBD dilation and no signs of gall bladder pathology on US however does have liver mets
#Anemia of chronic disease
minimal
monitor CBC
#Essential HTN
#HLD
#hypothyroidism
#RA on steroids
Hold Rinvoq
TSH WNL
cont home meds
Gradually restart antihypertensives meds since hypotension 2/2 dehydration on admission. restarted clonidine
DVT ppx hep
Full code
General: Comfortable
HEENT: Normocephalic
Respiratory: Clear to Auscultation
GI: Soft, Nontender and Nondistended
Genito-urinary: Frazier
Musculoskeletal: No Clubbing, No Cyanosis and No Edema
Neuro: Awake, Alert, Oriented and AO x 3
Psych: Calm
I have spent at least 52 min reviewing chart, test results, communication with consultants and direct patient care
Anticipated Discharge: Within 24 hours
Subjective/Interval History
-
Date of Service: August 22, 2024
denies nausea
Objective Data
-
Labs:
Laboratory Results
08/22/24
07:09
WBC 7.4
Hgb 9.9 L
Hct 30.1 L
Plt Count 178
Sodium 133 L
Potassium 3.2 L
Chloride 103
Carbon Dioxide 25
BUN 24 H
Creatinine 2.0 H
Glucose 96
Calcium 11.9 H
Total Bilirubin 0.5
AST 129 H
ALT 99 H
Alkaline Phosphatase 248 H
Vital Signs:
Vital Signs
Temp Pulse Resp BP Pulse Ox
97.4 F 96 16 136/83 98
08/22/24 07:30 08/22/24 07:51 08/22/24 07:30 08/22/24 07:51 08/22/24 07:30
I&O
08/21/24 08/22/24 08/23/24
06:59 06:59 06:59
Intake Total 1680 / 1680 204 / 204
Output Total 1200 / 1200 1500 / 1500
Balance 480 / 480 540 / 540
--- NOTE | 2024-08-22 11:58 | W.PN.URO.CBU ---
Today's Communication / Plan
-
Patient declines Randle
Continue to observe
Assessment / Plan
-
53F with metastatic renal cell ca
solitary left kidney s/p R nephrectomy
ARF
Bacteremia
Left nephrolithiasis
Undergoing workup and treatment for endocarditis/bacteremia
- Normalized urine output and improving creatinine
- Unclear if this is medical or possibly passage of some ureteral gravel/small stone that was obstructing kidney
- New onset gross hematuria and LLQ discomfort c/w passed/passing left ureteral stone: hematuria persists as of 08/22/24, LLQ pain has reseolved
Diagnosis
-
Date of Service: August 22, 2024
-
Patient Diagnosis:
renal cell ca- metastatic
hx of right nx and partial left nx
? sepsis
ARF: continues to improve w/o intervention.
Left nephrolithiasis
---
New onset gross hematuria with LLQ discomfort 08/19/24
Gross hematuria persists as of 08/22/24, LLQ has largely resolved: Hgb stable
Subjective
-
comfortable
Objective
-
Vital Signs
Temp Pulse Resp BP Pulse Ox
97.4 F 96 16 136/83 98
08/22/24 07:30 08/22/24 07:51 08/22/24 07:30 08/22/24 07:51 08/22/24 07:30
Intake and Output
08/21/24 08/22/24 08/23/24
06:59 06:59 06:59
Intake Total 1680 / 1680 204 / 2040
Output Total 1200 / 1200 1500 / 1500
Balance 480 / 480 540 / 540
Intake:
Oral fluids 1680 / 1680 1080 / 1080
IV fluids (Total) 960 / 960
Output:
Urine, Voided 1200 / 1200 1500 / 1500
Other:
Number of approximated LARGE 3
amounts of urine
Laboratory Results
08/22/24 07:09
08/22/24 07:09
Review of Systems
-
Constitutional: Fatigue
Respiratory: No Symptoms
Cardiac: No Symptoms
: Bleeding
Physical Exam
-
General - no acute distress
Abdomen - soft, non-tender
Neuro - AOx3, no motor deficits
[2024-08-22] MEDS: AREDIA 270 MG IV (12:07)
[2024-08-22 15:41] VITALS: BP 146/82
--- NOTE | 2024-08-22 16:40 | CM ---
CM reviewed chart, patient for possible discharge tomorrow, likely home no needs. CM will continue to follow for all discharge planning needs.
Plan; home no needs anticipated.
[2024-08-22 16:58] LABS: Glucose - Point of Care 149 mg/dl (70-99)
[2024-08-22 19:12] LABS: Glucose - Point of Care 131 mg/dl (70-99)
[2024-08-22 21:33] LABS: Glucose - Point of Care 231 mg/dl (70-99)
[2024-08-22] MEDS: LANTUS 0.08 UNITS SC (21:44)
--- NOTE | 2024-08-22 22:41 | W.PN.UPDATE ---
Update Note
Progress Note Update
Reported by the nursing staff that patient continue with hematuria, hgb level is trending down gradually from 11.4>10.8>10.1>9.9 and now is 9.4. Vital signs within normal limits.
Will hold heparin sq for now and monitoring h&h. Patient is currently followed by urology and nephrology services.
[2024-08-22] MEDS: HEPARIN SC (22:55)
[2024-08-22 23:00] VITALS: BP 118/70
[2024-08-23 00:02] LABS: Hematocrit 29.2 % (37.0-47.0); Hemoglobin 9.4 g/dL (12.0-16.0)
--- NOTE | 2024-08-23 00:10 | PTCARENOTE ---
Pt still w/ c/o gross hematuria, no clots present. Pt scheduled heparin SQ to be given at 1999. [employer] notified about heparin injection and hematuria. [employer] placed heparin SQ on hold and ordered H+H Q8. Pt updated and plan of care ongoing.
[2024-08-23] MEDS: SYNTHROID 88 MCG PO (05:17)
[2024-08-23 06:00] VITALS: BMI 31.2
[2024-08-23 07:26] LABS: % Basophils 0.2 % (0-2); % Immature Granulocytes 3.2 % (0-0.5); % Lymphocytes 4.4 % (20.5-51.1); % Monocytes 7.5 % (1.7-9.3); % Neutrophils 84.7 % (42.2-75.2); Absolute Immature Granulocytes 0.3 10^3/uL (0-0.05); Absolute Lymphocytes 0.4 10^3/uL (1.2-3.4); Absolute Monocytes 0.6 10^3/uL (0.1-0.6); Absolute Neutrophils 6.9 10^3/uL (1.4-6.5); Hematocrit 30.5 % (37.0-47.0); Hemoglobin 9.8 g/dL (12.0-16.0); Mean Corp Hgb Conc. 32.1 g/dL (33.0-37.0); Mean Corpuscular Hgb 30.6 pg (27.0-31.0); Mean Corpuscular Volume 95.3 fL (81.0-99.0); Mean Platelet Volume 11.5 fL (7.4-10.4); Nucleated Red Blood Cells % 0.2 %; Platelet Count 192 10^3/uL (130-400); Red Cell Dist. Width 16.4 % (11.5-14.5); White Blood Cell Count 8.1 10^3/uL (4.8-10.8)
[2024-08-23 07:43] LABS: Glucose - Point of Care 127 mg/dl (70-99)
[2024-08-23] MEDS: NOVOLOG FLEXPEN-MODERATE RESISTANCE SC ×2 (07:47→11:53)
[2024-08-23 07:52] VITALS: BP 139/73
[2024-08-23] MEDS: DELTASONE 5 MG PO (09:08)
[2024-08-23] MEDS: LIPITOR 80 MG PO (09:08)
[2024-08-23] MEDS: NORVASC 5 MG PO (09:08)
[2024-08-23] MEDS: CATAPRES 0.1 MG PO ×2 (09:08→20:44)
[2024-08-23 09:10] LABS: ALT (SGPT) 116 U/L (0-35); AST (SGOT) 126 U/L (14-36); Albumin 2.6 g/dl (3.5-5.0); Alkaline Phosphatase 241 U/L (38-126); Blood Urea Nitrogen 21 mg/dl (7-17); Calcium 12.7 mg/dl (8.4-10.2); Carbon Dioxide 25 mmol/L (22-30); Chloride 104 mmol/L (98-107); Estimated Creatinine Clearance 33 ml/min; Glucose 113 mg/dl (70-99); Potassium 4.2 mmol/L (3.5-5.1); Sodium 133 mmol/L (135-145); Total Bilirubin 0.5 mg/dl (0.2-1.3); Total Protein 4.8 g/dl (6.3-8.2); eGFR 30.99
[2024-08-23] MEDS: ULTRAM 50 MG PO (09:12)
--- NOTE | 2024-08-23 10:36 | W.PN.NEPH.PH ---
Today's Communication / Plan
-
1 dose of calcitonin IM and IV fluids for calcium increasing to 12.7 today
Assessment/Plan
-
Impression:
Nausea vomiting abdominal pain
Acute kidney injury 7.6)
Chronic kidney disease stage IIIb with baseline creatinine 1.6
Gapped metabolic acidosis with associated lactic acidosis (24)
Hypertension
Diabetes
History of rheumatoid arthritis
History of obstructive uropathy with history of ureter stent in 2022
Right nephrectomy in 2007
Left partial nephrectomy in 2021
strep bacteremia with likely IE
Suspected metastatic renal cell carcinoma
Plan:
creatinine initially greater than 7 , continued improvement with creatinine now down to 3.7>2.8>2>1.9,non oliguric
Calcium up to 11.9> 12.7, pth 10.9
Hypercalcemia likely a function of malignancy will provide IV pamidronate 08/22= medication will take effect 24 to 72-hour
Restart IV fluid
Will give 1 dose of calcitonin today
Remains nonoliguric
SHIVANI negative for vegetation
CT scan of abdomen and pelvis did not reveal obstructive stone and hematuria is thought to be likely due to underlying malignancy
strep bacteremia= surveillance cultures negative to date from 08/17= antibiotics discontinued
complement levels Mildly low C4 12.9 /ASO negative
Metabolic acidosis has resolved
hematuria/ urine culture ordered:negative
-
-
Date of Service: August 23, 2024
CC / HPI / ROS
-
Chief Complaint:
YOLIE
History of Present Illness:
YOLIE/Cr improving to 2
hypercalcemia worsening
Hemodynamically stable
Review of Systems:
no CP/SOB
Weights down
Labs
-
Labs:
WBC 8.1 10^3/uL (4.8-10.8) 08/23/24 07:09
RBC 3.20 10^6/uL (4.20-5.40) L 08/23/24 07:09
Hgb 9.8 g/dL (12.0-16.0) L 08/23/24 07:09
Hct 30.5 % (37.0-47.0) L 08/23/24 07:09
Plt Count 192 10^3/uL (130-400) 08/23/24 07:09
Sodium 133 mmol/L (135-145) L 08/23/24 07:09
Potassium 4.2 mmol/L (3.5-5.1) D 08/23/24 07:09
Chloride 104 mmol/L (98-107) 08/23/24 07:09
Carbon Dioxide 25 mmol/L (22-30) 08/23/24 07:09
BUN 21 mg/dl (7-17) H 08/23/24 07:09
Creatinine 1.9 mg/dL (0.6-1.0) H 08/23/24 07:09
eGFR 30.99 08/23/24 07:09
Glucose 113 mg/dl (70-99) H 08/23/24 07:09
Calcium 12.7 mg/dl (8.4-10.2) H 08/23/24 07:09
Albumin 2.6 g/dl (3.5-5.0) L 08/23/24 07:09
Physical Exam
-
Vital Signs:
Vital Signs
Temp Pulse Resp BP Pulse Ox
97.9 F 68 16 139/73 94
08/23/24 07:52 08/23/24 09:08 08/23/24 07:52 08/23/24 09:08 08/23/24 07:52
Cardiovascular:: Regular rate and rhythm
Respiratory:: Bilateral: CTA
Lung Excursion:: Normal
Abdomen:: Nontender and Soft
Bowel Sounds:: Normal
Extremity Edema:: +1: Bilateral:
Randle Catheter: No
--- NOTE | 2024-08-23 11:42 | PN.CDI ---
CDI
- -
CDI:
Physician Documentation Request
Admit Date: 08/13/24 16:00
Dear Doctor Jeanna,
Please review the following and provide your response in the progress notes.
Clinical Indicators:
Pt admitted with YOLIE, bacteremia, and UTI.
08/16 Nephrology note: 'YOLIE persists with creatinine of 7 although remains grossly nonoliguric at 1750...probably ATN but I am unsure of the etiology'
Laboratory Tests
08/13/24 08/14/24 08/15/24
11:30 04:21 03:43
Creatinine 7.6 H* 6.6 H* 7.3 H*
08/18/24 08/20/24
06:04 06:16
Creatinine 3.7 H 2.3 H
Please clarify the following:
ATN was present on admission and is now resolved.
ATN was ruled out
ATN is still a likely, suspected, probable diagnosis
YOLIE on CKD 3b only
Other
Use of terms such as suspected, likely, concern for, or probable (associated with a specific diagnosis that is being evaluated, monitored, or treated as if it exists) are acceptable and can be coded in the inpatient setting, when documented at the
time of discharge.
Thank you,
Diane Abbasi RN, BSN
CDI Specialist
Available via [place] text
Please use your independent medical judgment in providing your response.
[2024-08-23 11:44] LABS: Glucose - Point of Care 137 mg/dl (70-99)
[2024-08-23] MEDS: CALCIMAR/CALCITONIN 400 UNITS/ 2 ML 100 UNITS IM (11:51)
--- NOTE | 2024-08-23 12:36 | W.PN.HOSP.TC ---
Today's Communication/Plan
-
Monitor vital signs see plan
Discussed with oncology post acute care nurse from [place] and they are trying to get patient to a new chemo trial next week
Calcitonin and fluids today
Monitor calcium
monitor hematuria
Assessment / Plan
Assessment / Plan
53yo F with PMHX of RCC s/p R nephrectomy and partial L nephrectomy, CKD stage 3, Hx of nephrolithiasis, recent chemotherapy cycle that was terminated due to worsening nausea came with nausea, vomiting and minimal diarrhea over past 2 days prior to
admission, managed for complicated UTI with nephrolithiasis, bacteremia, YOLIE and also mild hypoxemia, found aortic vegetations with positive Bcx concerning for endocarditis so SHIVANI pending for 08/19/[address] Cain ([facility] oncologist) [phone]
A/P:
# non-obstructive nephrolithiasis and mild dilation of the L upper calyces
#Nausea most likely intolerance of the recent chemo
Urology consult: monitoring, deferred stent placement with no clear signs of obstruction causing YOLIE and improvement of kidney function. Could not exclude stone passage
check CT abdomen/pelvis 08/21/2024 with nonobstructed stone. I spoke with patient's oncology Dr. Guidry and it appears the patient is likely bleeding from her malignancy. Patient oncology will see patient soon outpatient for further treatment
discussion. Plan today is for pamidronate with possibility of discharge tomorrow
Urine not indicative of infection
Zofran
#Bacteremia with concern for Endocarditis
Endocarditis ruled out
Staph.capitis sensitive to Unasyn in 1 set (unfortunately only 1 done on admission), now appears to be contamination
Hx of strep. UTI
with ill defined mass L kidney - stable, discussed drain with IRAD on admission, at this time not indicated
Repeat Bcx NTD
UA neg
Echo: with Probable vegetation on the noncoronary cusp of the aortic valve and concern for mitral valve vegetations
Cardiology scheduled SHIVANI for 08/19/24 appears likely calcification; no clear vegetation
ID following, now off antibiotic
#Acute hypoxic insufficiency
#Atelectasis
R hemidiaphragm elevation
Bronchodilators
dec steroids back to 5mg prednisone which she takes for RA
Incentive spirometry
#YOLIE on CKD stage 3, non-oliguric
most likely hypovolemic 2/2 dehydration
frazier dc'ed; monitor
serial BMP
Nephrology: ASO and complement neg
cr slowly improving
Hypokalemia
improving
Hyponatremia
Monitor
Hypercalcemia
Monitor
Nephrology following
Could be from malignancy
Status post pamidronate by nephrology 08/22; calcitonin and fluids today
LLQ pain; Hematuria. Suspect likely secondary to known malignancy
Repeat CT scan did not show any obstructing stone.
Continue to monitor
Urology following
#RCC with liver lesions and L kidney mass and lithic osseous mets on L humeral head
cont follow up with [facility] upon d/c
#DJD
tylenol
#DM type 2 with nephropathy
DM diet, accuchecks, Insulin SS
cw glargine
holding metformin
A1c 7.4
#elevated LFT's
#Alk.phos elevation
follow LFT
HepC Ab neg
No CBD dilation and no signs of gall bladder pathology on US however does have liver mets
#Anemia of chronic disease
minimal
monitor CBC
#Essential HTN
#HLD
#hypothyroidism
#RA on steroids
Hold Rinvoq
TSH WNL
cont home meds
Gradually restart antihypertensives meds since hypotension 2/2 dehydration on admission. restarted clonidine
DVT ppx hep
Full code
General: Comfortable
HEENT: Normocephalic
Respiratory: Clear to Auscultation
GI: Soft, Nontender and Nondistended
Genito-urinary: Frazier
Musculoskeletal: No Clubbing, No Cyanosis and No Edema
Neuro: Awake, Alert, Oriented and AO x 3
Psych: Calm
I have spent at least 51 min reviewing chart, test results, communication with consultants and direct patient care
Anticipated Discharge: Within 24 hours
Subjective/Interval History
-
Date of Service: August 23, 2024
denies nausea
Objective Data
-
Labs:
Laboratory Results
08/23/24
07:09
WBC 8.1
Hgb 9.8 L
Hct 30.5 L
Plt Count 192
Sodium 133 L
Potassium 4.2 D
Chloride 104
Carbon Dioxide 25
BUN 21 H
Creatinine 1.9 H
Glucose 113 H
Calcium 12.7 H
Total Bilirubin 0.5
AST 126 H
ALT 116 H
Alkaline Phosphatase 241 H
Vital Signs:
Vital Signs
Temp Pulse Resp BP Pulse Ox
97.9 F 68 16 139/73 94
08/23/24 07:52 08/23/24 09:08 08/23/24 07:52 08/23/24 09:08 08/23/24 07:52
I&O
08/22/24 08/23/24 08/24/24
06:59 06:59 06:59
Intake Total 2040 / 2040 600 / 600
Output Total 1500 / 1500 1100 / 1100
Balance 540 / 540 -500 / -500
[2024-08-23] MEDS: ZOFRAN 4 MG IV (14:03)
[2024-08-23 15:06] VITALS: BP 141/78
[2024-08-23 16:29] LABS: Glucose - Point of Care 154 mg/dl (70-99)
[2024-08-23] MEDS: NOVOLOG FLEXPEN-MODERATE RESISTANCE 1 UNITS SC (17:56)
[2024-08-23 21:33] LABS: Glucose - Point of Care 129 mg/dl (70-99)
[2024-08-23] MEDS: LANTUS 0.08 UNITS SC (22:23)
[2024-08-23 23:00] VITALS: BP 109/64
[2024-08-24 06:00] VITALS: BMI 31.0
[2024-08-24] MEDS: SYNTHROID 88 MCG PO (06:25)
[2024-08-24 07:47] LABS: % Basophils 0.3 % (0-2); % Eosinophils 0.1 % (0-6); % Immature Granulocytes 1.9 % (0-0.5); % Lymphocytes 3.4 % (20.5-51.1); % Monocytes 7.1 % (1.7-9.3); % Neutrophils 87.2 % (42.2-75.2); Absolute Immature Granulocytes 0.2 10^3/uL (0-0.05); Absolute Lymphocytes 0.4 10^3/uL (1.2-3.4); Absolute Monocytes 0.7 10^3/uL (0.1-0.6); Hematocrit 32.7 % (37.0-47.0); Hemoglobin 10.5 g/dL (12.0-16.0); Mean Corp Hgb Conc. 32.1 g/dL (33.0-37.0); Mean Corpuscular Volume 96.5 fL (81.0-99.0); Mean Platelet Volume 11.9 fL (7.4-10.4); Nucleated Red Blood Cells % 0.2 %; Platelet Count 226 10^3/uL (130-400); Red Blood Cell Count 3.39 10^6/uL (4.20-5.40); Red Cell Dist. Width 16.9 % (11.5-14.5); White Blood Cell Count 10.3 10^3/uL (4.8-10.8)
[2024-08-24 07:57] LABS: ALT (SGPT) 92 U/L (0-35); AST (SGOT) 94 U/L (14-36); Albumin 2.9 g/dl (3.5-5.0); Alkaline Phosphatase 252 U/L (38-126); Blood Urea Nitrogen 18 mg/dl (7-17); Calcium 12.7 mg/dl (8.4-10.2); Carbon Dioxide 25 mmol/L (22-30); Chloride 103 mmol/L (98-107); Estimated Creatinine Clearance 31 ml/min; Glucose 113 mg/dl (70-99); Sodium 132 mmol/L (135-145); Total Bilirubin 0.5 mg/dl (0.2-1.3); Total Protein 5.3 g/dl (6.3-8.2); eGFR 29.14
[2024-08-24 08:01] LABS: Glucose - Point of Care 116 mg/dl (70-99)
[2024-08-24 08:03] VITALS: BP 146/72
[2024-08-24] MEDS: NOVOLOG FLEXPEN-MODERATE RESISTANCE SC ×3 (08:36→16:53)
[2024-08-24] MEDS: CATAPRES 0.1 MG PO ×2 (08:41→21:40)
[2024-08-24] MEDS: LIPITOR 80 MG PO (08:41)
[2024-08-24] MEDS: NORVASC 5 MG PO (08:41)
[2024-08-24] MEDS: DELTASONE 5 MG PO (08:41)
--- NOTE | 2024-08-24 09:49 | PTCARENOTE ---
Pt c/o reflux. made aware, new order provided, see MAR.
[2024-08-24] MEDS: MAALOX 30 ML PO (09:50)
[2024-08-24] MEDS: ZOFRAN 4 MG IV (10:55)
[2024-08-24] MEDS: SENOKOT-S 1 TABLET PO (10:55)
[2024-08-24 11:10] LABS: Glucose - Point of Care 127 mg/dl (70-99)
--- NOTE | 2024-08-24 11:55 | W.PN.URO.CBU ---
Today's Communication / Plan
-
Ongoing gross hematuria minimal and likely related to metastatic renal cell CA/catheter trauma
No intervention indicated
Assessment / Plan
-
53F with metastatic renal cell ca
solitary left kidney s/p R nephrectomy
ARF: improved
Bacteremia
Left nephrolithiasis
- Normalized urine output and improving creatinine
- Unclear if this is medical or possibly passage of some ureteral gravel/small stone that was obstructing kidney
- New onset gross hematuria and LLQ discomfort c/w passed/passing left ureteral stone: hematuria persists as of 08/24/24, LLQ pain has resolved
- Urine C&S negative
Diagnosis
-
Date of Service: August 24, 2024
-
Patient Diagnosis:
renal cell ca- metastatic
hx of right nx and partial left nx
? sepsis
ARF: continues to improve w/o intervention.
Left nephrolithiasis
---
New onset gross hematuria with LLQ discomfort 08/19/24
Gross hematuria persists as of 08/24/24, LLQ has largely resolved: Hgb remains stable
Urine C&S negative
Subjective
-
No significant LLQ pain
No dysuria
Objective
-
Vital Signs
Temp Pulse Resp BP Pulse Ox
98.4 F 79 16 146/72 95
08/24/24 08:03 08/24/24 08:41 08/24/24 08:03 08/24/24 08:41 08/24/24 08:03
Intake and Output
08/23/24 08/24/24 08/25/24
06:59 06:59 06:59
Intake Total 600 / 600 1320 / 1320
Output Total 1100 / 1100 925 / 925
Balance -500 / -500 395 / 395
Intake:
Oral fluids 600 / 600 1320 / 1320
Output:
Urine, Voided 1100 / 1100 925 / 925
Other:
Number of approximated MODERATE 2
amounts of urine
Laboratory Results
08/24/24 06:59
08/24/24 06:59
Review of Systems
-
Constitutional: Fatigue
Respiratory: No Symptoms
Cardiac: No Symptoms
Abdomen/GI: No Symptoms
: Bleeding
Physical Exam
-
General - no acute distress
Abdomen - soft, non-tender, no CVAT
Skin - warm & dry with no rash
Neuro - AOx3, no motor deficits
--- NOTE | 2024-08-24 12:28 | W.PN.HOSP.TC ---
Today's Communication/Plan
-
Monitor vital signs
see plan
Nephrology to see today for hypercalcemia
Fluids
Pain control
Assessment / Plan
Assessment / Plan
53yo F with PMHX of RCC s/p R nephrectomy and partial L nephrectomy, CKD stage 3, Hx of nephrolithiasis, recent chemotherapy cycle that was terminated due to worsening nausea came with nausea, vomiting and minimal diarrhea over past 2 days prior to
admission, managed for complicated UTI with nephrolithiasis, bacteremia, YOLIE and also mild hypoxemia, found aortic vegetations with positive Bcx concerning for endocarditis so SHIVANI pending for 08/19/24
Plan [address] Cain ([facility] oncologist) [phone]
A/P:
# non-obstructive nephrolithiasis and mild dilation of the L upper calyces
#Nausea most likely intolerance of the recent chemo
Urology consult: monitoring, deferred stent placement with no clear signs of obstruction causing YOLIE and improvement of kidney function. Could not exclude stone passage
check CT abdomen/pelvis 08/21/2024 with nonobstructed stone. I spoke with patient's oncology Dr. Guidry and it appears the patient is likely bleeding from her malignancy. Patient oncology will see patient soon outpatient for further treatment
discussion. s/p pamidronate,calcitonin
Urine not indicative of infection
Zofran
#Bacteremia with concern for Endocarditis
Endocarditis ruled out
Staph.capitis sensitive to Unasyn in 1 set (unfortunately only 1 done on admission), now appears to be contamination
Hx of strep. UTI
with ill defined mass L kidney - stable, discussed drain with IRAD on admission, at this time not indicated
Repeat Bcx NTD
UA neg
Echo: with Probable vegetation on the noncoronary cusp of the aortic valve and concern for mitral valve vegetations
Cardiology scheduled SHIVANI for 08/19/24 appears likely calcification; no clear vegetation
ID following, now off antibiotic
#Acute hypoxic insufficiency
#Atelectasis
R hemidiaphragm elevation
Bronchodilators
dec steroids back to 5mg prednisone which she takes for RA
Incentive spirometry
#YOLIE on CKD stage 3, non-oliguric
most likely hypovolemic 2/2 dehydration
frazier dc'ed; monitor
serial BMP
Nephrology: ASO and complement neg
cr slowly improving
Hypokalemia
improving
Hyponatremia
Monitor
Hypercalcemia
Monitor
Nephrology following
Could be from malignancy
Status post pamidronate by nephrology 08/22; calcitonin and fluids; nephrology to see today
LLQ pain; Hematuria. Suspect likely secondary to known malignancy
Repeat CT scan did not show any obstructing stone.
Continue to monitor
Urology following
#RCC with liver lesions and L kidney mass and lithic osseous mets on L humeral head
cont follow up with [facility] upon d/c
#DJD
tylenol
#DM type 2 with nephropathy
DM diet, accuchecks, Insulin SS
cw glargine
holding metformin
A1c 7.4
#elevated LFT's
#Alk.phos elevation
follow LFT
HepC Ab neg
No CBD dilation and no signs of gall bladder pathology on US however does have liver mets
#Anemia of chronic disease
minimal
monitor CBC
#Essential HTN
#HLD
#hypothyroidism
#RA on steroids
Hold Rinvoq
TSH WNL
cont home meds
Gradually restart antihypertensives meds since hypotension 2/2 dehydration on admission. restarted clonidine
DVT ppx hep
Full code
General: Comfortable
HEENT: Normocephalic
Respiratory: Clear to Auscultation
GI: Soft, Nontender and Nondistended
Genito-urinary: Frazier
Musculoskeletal: No Clubbing, No Cyanosis and No Edema
Neuro: Awake, Alert, Oriented and AO x 3
Psych: Calm
I have spent at least 51 min reviewing chart, test results, communication with consultants and direct patient care
Anticipated Discharge: 24 - 48 hours
Subjective/Interval History
-
Date of Service: August 24, 2024
denies nausea
Objective Data
-
Labs:
Laboratory Results
08/24/24
06:59
WBC 10.3
Hgb 10.5 L
Hct 32.7 L
Plt Count 226
Sodium 132 L
Potassium 4.0
Chloride 103
Carbon Dioxide 25
BUN 18 H
Creatinine 2.0 H
Glucose 113 H
Calcium 12.7 H
Total Bilirubin 0.5
AST 94 H
ALT 92 H
Alkaline Phosphatase 252 H
Vital Signs:
Vital Signs
Temp Pulse Resp BP Pulse Ox
98.4 F 79 16 146/72 95
08/24/24 08:03 08/24/24 08:41 08/24/24 08:03 08/24/24 08:41 08/24/24 08:03
I&O
08/23/24 08/24/24 08/25/24
06:59 06:59 06:59
Intake Total 600 / 600 1320 / 1320
Output Total 1100 / 1100 925 / 925
Balance -500 / -500 395 / 395
--- NOTE | 2024-08-24 14:31 | W.PN.NEPH.PH ---
Today's Communication / Plan
-
Lasix 40mg x 1
Assessment/Plan
-
Impression:
Nausea vomiting abdominal pain
Acute kidney injury 7.6)
Chronic kidney disease stage IIIb with baseline creatinine 1.6
Gapped metabolic acidosis with associated lactic acidosis (24)
Hypertension
Diabetes
History of rheumatoid arthritis
History of obstructive uropathy with history of ureter stent in 2022
Right nephrectomy in 2007
Left partial nephrectomy in 2021
strep bacteremia with likely IE
Suspected metastatic renal cell carcinoma
Plan:
creatinine initially greater than 7 , continued improvement with creatinine now down to 3.7>2.8>2>1.9,non oliguric
Calcium up to 11.9> 12.7, pth 10.9
Hypercalcemia likely a function of malignancy will provide IV pamidronate 08/22= medication will take effect 24 to 72-hour
s/p calcitonin 08/23
lasix x 1 today
Remains nonoliguric
SHIVANI negative for vegetation
CT scan of abdomen and pelvis did not reveal obstructive stone and hematuria is thought to be likely due to underlying malignancy
strep bacteremia= surveillance cultures negative to date from 08/17= antibiotics discontinued
complement levels Mildly low C4 12.9 /ASO negative
Metabolic acidosis has resolved
hematuria/ urine culture ordered:negative
-
-
Date of Service: August 24, 2024
CC / HPI / ROS
-
Chief Complaint:
YOLIE
History of Present Illness:
YOLIE/Cr improving to 2
hypercalcemia worsening
Hemodynamically stable
Review of Systems:
no CP/SOB
Weights down
Labs
-
Labs:
WBC 10.3 10^3/uL (4.8-10.8) 08/24/24 06:59
RBC 3.39 10^6/uL (4.20-5.40) L 08/24/24 06:59
Hgb 10.5 g/dL (12.0-16.0) L 08/24/24 06:59
Hct 32.7 % (37.0-47.0) L 08/24/24 06:59
Plt Count 226 10^3/uL (130-400) 08/24/24 06:59
Sodium 132 mmol/L (135-145) L 08/24/24 06:59
Potassium 4.0 mmol/L (3.5-5.1) 08/24/24 06:59
Chloride 103 mmol/L (98-107) 08/24/24 06:59
Carbon Dioxide 25 mmol/L (22-30) 08/24/24 06:59
BUN 18 mg/dl (7-17) H 08/24/24 06:59
Creatinine 2.0 mg/dL (0.6-1.0) H 08/24/24 06:59
eGFR 29.14 08/24/24 06:59
Glucose 113 mg/dl (70-99) H 08/24/24 06:59
Calcium 12.7 mg/dl (8.4-10.2) H 08/24/24 06:59
Albumin 2.9 g/dl (3.5-5.0) L 08/24/24 06:59
Physical Exam
-
Vital Signs:
Vital Signs
Temp Pulse Resp BP Pulse Ox
98.4 F 79 16 146/72 95
08/24/24 08:03 08/24/24 08:41 08/24/24 08:03 08/24/24 08:41 08/24/24 08:03
Cardiovascular:: Regular rate and rhythm
Respiratory:: Bilateral: CTA
Lung Excursion:: Normal
Abdomen:: Nontender and Soft
Bowel Sounds:: Normal
Extremity Edema:: +2: Bilateral:
Randle Catheter: No
[2024-08-24 15:32] VITALS: BP 134/77
[2024-08-24] MEDS: LASIX 40 MG IV (15:32)
[2024-08-24 16:45] LABS: Glucose - Point of Care 135 mg/dl (70-99)
[2024-08-24 21:38] LABS: Glucose - Point of Care 100 mg/dl (70-99)
[2024-08-24] MEDS: LANTUS 0.08 UNITS SC (21:40)
[2024-08-24 23:00] VITALS: BP 124/60
--- NOTE | 2024-08-25 00:02 | PTCARENOTE ---
Assumed care of pt and assessed at 2330. No complaints at this time, will continue to monitor pt.
[2024-08-25] MEDS: SYNTHROID 88 MCG PO (05:18)
[2024-08-25 05:58] VITALS: BMI 30.4
[2024-08-25 07:00] VITALS: BP 147/75
[2024-08-25 07:41] LABS: % Basophils 0.3 % (0-2); % Immature Granulocytes 2.1 % (0-0.5); % Lymphocytes 3.8 % (20.5-51.1); % Neutrophils 84.8 % (42.2-75.2); Absolute Immature Granulocytes 0.2 10^3/uL (0-0.05); Absolute Lymphocytes 0.4 10^3/uL (1.2-3.4); Hematocrit 31.9 % (37.0-47.0); Mean Corp Hgb Conc. 31.3 g/dL (33.0-37.0); Mean Corpuscular Hgb 30.9 pg (27.0-31.0); Mean Corpuscular Volume 98.5 fL (81.0-99.0); Mean Platelet Volume 11.5 fL (7.4-10.4); Nucleated Red Blood Cells % 0.2 %; Platelet Count 221 10^3/uL (130-400); Red Blood Cell Count 3.24 10^6/uL (4.20-5.40); Red Cell Dist. Width 16.7 % (11.5-14.5); White Blood Cell Count 10.7 10^3/uL (4.8-10.8)
[2024-08-25 08:03] LABS: ALT (SGPT) 75 U/L (0-35); AST (SGOT) 74 U/L (14-36); Albumin 2.8 g/dl (3.5-5.0); Alkaline Phosphatase 242 U/L (38-126); Blood Urea Nitrogen 16 mg/dl (7-17); Calcium 12.2 mg/dl (8.4-10.2); Carbon Dioxide 27 mmol/L (22-30); Chloride 101 mmol/L (98-107); Estimated Creatinine Clearance 28 ml/min; Glucose 88 mg/dl (70-99); Potassium 3.5 mmol/L (3.5-5.1); Sodium 134 mmol/L (135-145); Total Bilirubin 0.4 mg/dl (0.2-1.3); Total Protein 5.1 g/dl (6.3-8.2); eGFR 25.99
[2024-08-25 08:10] LABS: Glucose - Point of Care 86 mg/dl (70-99)
[2024-08-25] MEDS: DELTASONE 5 MG PO (08:17)
[2024-08-25] MEDS: LIPITOR 80 MG PO (08:17)
[2024-08-25] MEDS: CATAPRES 0.1 MG PO ×2 (08:17→21:49)
[2024-08-25] MEDS: NORVASC 5 MG PO (08:17)
[2024-08-25] MEDS: TYLENOL 650 MG PO (08:19)
[2024-08-25] MEDS: NOVOLOG FLEXPEN-MODERATE RESISTANCE SC ×2 (08:53→12:24)
--- NOTE | 2024-08-25 11:22 | W.PN.URO.CBU ---
Today's Communication / Plan
-
Gross hematuria resolved
No voiding dysfunction
Assessment / Plan
-
53F with metastatic renal cell ca
solitary left kidney s/p R nephrectomy
ARF: improved
Bacteremia
Left nephrolithiasis
- Normalized urine output and improving creatinine
- Unclear if this is medical or possibly passage of some ureteral gravel/small stone that was obstructing kidney
- New onset gross hematuria and LLQ discomfort c/w passed/passing left ureteral stone: both resolved
- Urine C&S negative
Diagnosis
-
Date of Service: August 25, 2024
-
Patient Diagnosis:
renal cell ca- metastatic
hx of right nx and partial left nx
? sepsis
ARF: continues to improve w/o intervention.
Left nephrolithiasis
---
New onset gross hematuria with LLQ discomfort 08/19/24
Gross hematuria resolved 08/25/24
Urine C&S negative
Subjective
-
minimal LLQ discomfort
Objective
-
Vital Signs
Temp Pulse Resp BP Pulse Ox
97.7 F 79 16 147/75 93
08/25/24 07:00 08/25/24 07:00 08/25/24 07:00 08/25/24 07:00 08/25/24 07:00
Intake and Output
08/24/24 08/25/24 08/26/24
06:59 06:59 06:59
Intake Total 1320 / 1320 720 / 720 480 / 480
Output Total 925 / 925 400 / 400 350 / 350
Balance 395 / 395 320 / 320 130 / 130
Intake:
Oral fluids 1320 / 1320 720 / 720 480 / 480
Output:
Urine, Voided 925 / 925 400 / 400 350 / 350
Other:
Number of approximated MODERATE 2
amounts of urine
Laboratory Results
08/25/24 06:47
08/25/24 06:47
Review of Systems
-
Constitutional: Fatigue
Respiratory: No Symptoms
Cardiac: No Symptoms
Abdomen/GI: Abdominal Pain
: No Symptoms
Physical Exam
-
General - no acute distress
Abdomen - soft, non-tender
--- NOTE | 2024-08-25 11:31 | W.PN.HOSP.TC ---
Today's Communication/Plan
-
Monitor vital signs see plan
Monitor calcium closely
Continue with insulin
Continue with clonidine, amlodipine
Will eventually follow-up with oncology at [place]
Assessment / Plan
Assessment / Plan
53yo F with PMHX of RCC s/p R nephrectomy and partial L nephrectomy, CKD stage 3, Hx of nephrolithiasis, recent chemotherapy cycle that was terminated due to worsening nausea came with nausea, vomiting and minimal diarrhea over past 2 days prior to
admission, managed for complicated UTI with nephrolithiasis, bacteremia, YOLIE and also mild hypoxemia, found aortic vegetations with positive Bcx concerning for endocarditis so SHIVANI pending for 08/19/24
[address] Cain ([facility] oncologist) [phone]
A/P:
# non-obstructive nephrolithiasis and mild dilation of the L upper calyces
#Nausea most likely intolerance of the recent chemo
Urology consult: monitoring, deferred stent placement with no clear signs of obstruction causing YOLIE and improvement of kidney function. Could not exclude stone passage
check CT abdomen/pelvis 08/21/2024 with nonobstructed stone. I spoke with patient's oncology Dr. Guidry and it appears the patient is likely bleeding from her malignancy. Patient oncology will see patient soon outpatient for further treatment
discussion. s/p pamidronate,calcitonin
Urine not indicative of infection
Zofran
#Bacteremia with concern for Endocarditis
Endocarditis ruled out
Staph.capitis sensitive to Unasyn in 1 set (unfortunately only 1 done on admission), now appears to be contamination
Hx of strep. UTI
with ill defined mass L kidney - stable, discussed drain with IRAD on admission, at this time not indicated
Repeat Bcx NTD
UA neg
Echo: with Probable vegetation on the noncoronary cusp of the aortic valve and concern for mitral valve vegetations
Cardiology scheduled SHIVANI for 08/19/24 appears likely calcification; no clear vegetation
ID following, now off antibiotic
#Acute hypoxic insufficiency
#Atelectasis
R hemidiaphragm elevation
Bronchodilators
dec steroids back to 5mg prednisone which she takes for RA
Incentive spirometry
#YOLIE on CKD stage 3, non-oliguric
most likely hypovolemic 2/2 dehydration
frazier dc'ed; monitor
serial BMP
Nephrology: ASO and complement neg
cr slowly improving
Hypokalemia
improving
Hyponatremia
Monitor
Hypercalcemia
Monitor
Nephrology following
Could be from malignancy
Status post pamidronate by nephrology 08/22; calcitonin and fluids; nephrology to see today
LLQ pain; Hematuria. Suspect likely secondary to known malignancy
Repeat CT scan did not show any obstructing stone.
Continue to monitor; now pain improving
Urology following
#RCC with liver lesions and L kidney mass and lithic osseous mets on L humeral head
cont follow up with [facility] upon d/c
#DJD
tylenol
#DM type 2 with nephropathy
DM diet, accuchecks, Insulin SS
cw glargine
holding metformin
A1c 7.4
#elevated LFT's
#Alk.phos elevation
follow LFT
HepC Ab neg
No CBD dilation and no signs of gall bladder pathology on US however does have liver mets
#Anemia of chronic disease
minimal
monitor CBC
#Essential HTN
#HLD
#hypothyroidism
#RA on steroids
Hold Rinvoq
TSH WNL
cont home meds
Gradually restart antihypertensives meds since hypotension 2/2 dehydration on admission. restarted clonidine
DVT ppx hep
Full code
General: Comfortable
HEENT: Normocephalic
Respiratory: Clear to Auscultation
GI: Soft, Nontender and Nondistended
Genito-urinary: Frazier
Musculoskeletal: No Clubbing, No Cyanosis and No Edema
Neuro: Awake, Alert, Oriented and AO x 3
Psych: Calm
I have spent at least 51 min reviewing chart, test results, communication with consultants and direct patient care
Anticipated Discharge: 24 - 48 hours
Subjective/Interval History
-
Date of Service: August 25, 2024
denies nausea
Objective Data
-
Labs:
Laboratory Results
08/25/24
06:47
WBC 10.7
Hgb 10.0 L
Hct 31.9 L
Plt Count 221
Sodium 134 L
Potassium 3.5
Chloride 101
Carbon Dioxide 27
BUN 16
Creatinine 2.2 H
Glucose 88
Calcium 12.2 H
Total Bilirubin 0.4
AST 74 H
ALT 75 H
Alkaline Phosphatase 242 H
Vital Signs:
Vital Signs
Temp Pulse Resp BP Pulse Ox
97.7 F 79 16 147/75 93
08/25/24 07:00 08/25/24 07:00 08/25/24 07:00 08/25/24 07:00 08/25/24 07:00
I&O
08/24/24 08/25/24 08/26/24
06:59 06:59 06:59
Intake Total 1320 / 1320 720 / 720 480 / 480
Output Total 925 / 925 400 / 400 350 / 350
Balance 395 / 395 320 / 320 130 / 130
[2024-08-25 12:13] LABS: Glucose - Point of Care 115 mg/dl (70-99)
[2024-08-25 15:10] VITALS: BP 151/79
[2024-08-25] MEDS: LASIX 40 MG IV (16:12)
[2024-08-25] MEDS: FLUSH (NSS) 2 FLUSH IV (16:15)
[2024-08-25 17:12] LABS: Glucose - Point of Care 193 mg/dl (70-99)
[2024-08-25] MEDS: NOVOLOG FLEXPEN-MODERATE RESISTANCE 1 UNITS SC (18:13)
[2024-08-25 21:29] LABS: Glucose - Point of Care 124 mg/dl (70-99)
[2024-08-25 21:56] VITALS: BP 155/87
[2024-08-25] MEDS: LANTUS 0.08 UNITS SC (22:23)
[2024-08-25 23:32] VITALS: BP 113/62
[2024-08-26] MEDS: SYNTHROID 88 MCG PO (05:25)
[2024-08-26 07:49] LABS: % Basophils 0.2 % (0-2); % Immature Granulocytes 1.6 % (0-0.5); % Lymphocytes 3.6 % (20.5-51.1); % Monocytes 8.7 % (1.7-9.3); % Neutrophils 85.9 % (42.2-75.2); Absolute Immature Granulocytes 0.2 10^3/uL (0-0.05); Absolute Lymphocytes 0.4 10^3/uL (1.2-3.4); Absolute Monocytes 0.9 10^3/uL (0.1-0.6); Absolute Neutrophils 8.8 10^3/uL (1.4-6.5); Hematocrit 32.1 % (37.0-47.0); Hemoglobin 10.3 g/dL (12.0-16.0); Mean Corp Hgb Conc. 32.1 g/dL (33.0-37.0); Mean Corpuscular Hgb 30.2 pg (27.0-31.0); Mean Corpuscular Volume 94.1 fL (81.0-99.0); Mean Platelet Volume 10.7 fL (7.4-10.4); Nucleated Red Blood Cells % 0 %; Platelet Count 229 10^3/uL (130-400); Red Blood Cell Count 3.41 10^6/uL (4.20-5.40); Red Cell Dist. Width 16.7 % (11.5-14.5); White Blood Cell Count 10.3 10^3/uL (4.8-10.8)
[2024-08-26 08:03] LABS: Glucose - Point of Care 90 mg/dl (70-99)
[2024-08-26] MEDS: NOVOLOG FLEXPEN-MODERATE RESISTANCE SC ×2 (08:06→13:14)
[2024-08-26 08:09] LABS: ALT (SGPT) 65 U/L (0-35); AST (SGOT) 71 U/L (14-36); Albumin 2.8 g/dl (3.5-5.0); Alkaline Phosphatase 236 U/L (38-126); Blood Urea Nitrogen 20 mg/dl (7-17); Calcium 11.8 mg/dl (8.4-10.2); Carbon Dioxide 29 mmol/L (22-30); Chloride 100 mmol/L (98-107); Estimated Creatinine Clearance 28 ml/min; Glucose 98 mg/dl (70-99); Potassium 3.4 mmol/L (3.5-5.1); Sodium 131 mmol/L (135-145); Total Bilirubin 0.5 mg/dl (0.2-1.3); Total Protein 5.1 g/dl (6.3-8.2); eGFR 25.99
[2024-08-26 08:27] VITALS: BP 154/79
[2024-08-26] MEDS: LIPITOR 80 MG PO (08:28)
[2024-08-26] MEDS: CATAPRES 0.1 MG PO ×2 (08:28→20:04)
[2024-08-26] MEDS: DELTASONE 5 MG PO (08:28)
[2024-08-26] MEDS: NORVASC 5 MG PO (08:29)
[2024-08-26] MEDS: TYLENOL 650 MG PO (08:29)
--- NOTE | 2024-08-26 12:30 | W.PN.HOSP.TC ---
Today's Communication/Plan
-
follow final recommendations from nephrology for calcium mgmt
Assessment / Plan
Assessment / Plan
53yo F with PMHX of RCC s/p R nephrectomy and partial L nephrectomy, CKD stage 3, Hx of nephrolithiasis, recent chemotherapy cycle that was terminated due to worsening nausea came with nausea, vomiting and minimal diarrhea over past 2 days prior to
admission, managed for complicated UTI with nephrolithiasis, bacteremia, YOLIE and also mild hypoxemia, found aortic vegetations with positive Bcx concerning for endocarditis so SHIVANI done on 08/19/24 and endocarditis ruled out. ID stopepd Abx. YOLIE
resolved. Unclear reason for YOLIE - coul;d be 2/2 passed stone as per urologist. Developed cancer-associated hypercalemia s/p pamidronate on 08/22/24, pending improvement in Ca
Plan communicated to Dr. Cain ([facility] oncologist) [phone]
A/P:
# non-obstructive nephrolithiasis and mild dilation of the L upper calyces
#Nausea most likely intolerance of the recent chemo
#Cancer-associated hypercalcemia
Urology consult: monitoring, deferred stent placement with no clear signs of obstruction causing YOLIE and improvement of kidney function. Could not exclude stone passage
CT abdomen/pelvis 08/21/2024 with nonobstructed stone. I spoke with patient's oncology Dr. Guidry and it appears the patient is likely bleeding from her malignancy. Patient oncology will see patient soon outpatient for further treatment
discussion. s/p pamidronate, calcitonin
Urine not indicative of infection
Zofran
#Bacteremia with concern for Endocarditis
Endocarditis ruled out
Staph.capitis sensitive to Unasyn in 1 set (unfortunately only 1 done on admission), now appears to be contamination
Hx of strep. UTI
with ill defined mass L kidney - stable, discussed drain with IRAD on admission, at this time not indicated
Repeat Bcx NTD
UA neg
Echo: with Probable vegetation on the noncoronary cusp of the aortic valve and concern for mitral valve vegetations
Cardiology did SHIVANI on 08/19/24: appears likely calcification; no clear vegetation
ID following, now off antibiotic
#Acute hypoxic insufficiency 2/2 Atelectasis
resolved
R hemidiaphragm elevation
Bronchodilators
dec steroids back to 5mg prednisone which she takes for RA
Incentive spirometry
#YOLIE on CKD stage 3, non-oliguric
most likely hypovolemic 2/2 dehydration
freddie dc'ed; monitor
serial BMP
Nephrology: ASO and complement neg
cr slowly improving
#Hypokalemia
replete and follow
#mild hyponatremia
Monitor
#Hematuria.
Suspect likely secondary to known malignancy
Repeat CT scan did not show any obstructing stone.
Continue to monitor; now pain improving
Urology following
#RCC with liver lesions and L kidney mass and lithic osseous mets on L humeral head
cont follow [facility] upon d/c
#DJD
tylenol
#DM type 2 with nephropathy
DM diet, accuchecks, Insulin SS
cw glargine
holding metformin
A1c 7.4
#elevated LFT's
#Alk.phos elevation
follow LFT
HepC Ab neg
No CBD dilation and no signs of gall bladder pathology on US however does have liver mets
#Anemia of chronic disease
minimal
monitor CBC
#Essential HTN
#HLD
#hypothyroidism
#RA on steroids
Hold Rinvoq
TSH WNL
cont home meds
Gradually restart antihypertensives meds since hypotension 2/2 dehydration on admission. restarted clonidine
DVT ppx hep
Full code
I have spent at least 51 min reviewing chart, test results, communication with consultants and direct patient care
Anticipated Discharge: 24 - 48 hours
Subjective/Interval History
-
Date of Service: August 26, 2024
Objective Data
-
Labs:
Laboratory Results
08/26/24
07:34
WBC 10.3
Hgb 10.3 L
Hct 32.1 L
Plt Count 229
Sodium 131 L
Potassium 3.4 L
Chloride 100
Carbon Dioxide 29
BUN 20 H
Creatinine 2.2 H
Glucose 98
Calcium 11.8 H
Total Bilirubin 0.5
AST 71 H
ALT 65 H
Alkaline Phosphatase 236 H
Vital Signs:
Vital Signs
Temp Pulse Resp BP Pulse Ox
97.3 F 83 18 154/79 93
08/26/24 08:27 08/26/24 08:27 08/26/24 08:27 08/26/24 08:29 08/26/24 08:27
I&O
08/25/24 08/26/24 08/27/24
06:59 06:59 06:59
Intake Total 720 / 720 1920 / 1920
Output Total 400 / 400 750 / 750
Balance 320 / 320 1170 / 1170
Review of Systems
-
All other systems: Reviewed and negative
Constitutional: Reports No Symptoms
Physical Exam
-
General: No Apparent Distress
HEENT: Normocephalic
Respiratory: Clear to Auscultation; Negative Wheezes, Rales or Rhonchi
GI: Soft, Nontender and Nondistended
Musculoskeletal: No Clubbing, No Cyanosis and No Edema
Neuro: Awake, Alert, Oriented and AO x 3
Psych: Calm
[2024-08-26 13:01] LABS: Glucose - Point of Care 139 mg/dl (70-99)
[2024-08-26] MEDS: KCL ELIXIR 40 MEQ PO (13:14)
--- NOTE | 2024-08-26 14:55 | PTCARENOTE ---
pt upset about still being in hospital. has appointment at [facility] for new cancer treatment. reviewed plan of care with her and her brother. updated hosp dr. sousa to d/c pt tomorrow if calcium continues to improve. pt ok with plan
--- NOTE | 2024-08-26 14:57 | W.PN.NEPH.PH ---
Today's Communication / Plan
-
lasix
Assessment/Plan
-
Impression:
Nausea vomiting abdominal pain
Acute kidney injury 7.6)
Chronic kidney disease stage IIIb with baseline creatinine 1.6
Gapped metabolic acidosis with associated lactic acidosis (24)
Hypertension
Diabetes
History of rheumatoid arthritis
History of obstructive uropathy with history of ureter stent in 2022
Right nephrectomy in 2007
Left partial nephrectomy in 2021
strep bacteremia with likely IE
Suspected metastatic renal cell carcinoma
Plan:
YOLIE-cr stable at 2.2, nonoliguric
CT scan of abdomen and pelvis did not reveal obstructive stone and hematuria is thought to be likely due to underlying malignancy
hypercalcemia felt to be from malignancy s/p Pamidronate on 08/22
huey slow to improve, s/p calcitonin 08/23
lasix x 1 again today, also with edema
replace k
off abx, SHIVANI negative for vegetation
complement levels Mildly low C4 12.9 /ASO negative
monitor hyponatremia-likely start FR 48ounces/day
avoid nephrotoxins, ARB on hold
likely lasix 20mg prn for edema at d/c
if huey improves further ok for d/c in am and f/u with [facility] on Monday
d/w pt and primary
-
-
Date of Service: August 26, 2024
CC / HPI / ROS
-
Chief Complaint:
YOLIE
History of Present Illness:
YOLIE/Cr stable at 2.2
hypercalcemia better 11.8
Hemodynamically stable
k low 3.4
Review of Systems:
no CP/SOB
Weights down
no n/v
Labs
-
Labs:
WBC 10.3 10^3/uL (4.8-10.8) 08/26/24 07:34
RBC 3.41 10^6/uL (4.20-5.40) L 08/26/24 07:34
Hgb 10.3 g/dL (12.0-16.0) L 08/26/24 07:34
Hct 32.1 % (37.0-47.0) L 08/26/24 07:34
Plt Count 229 10^3/uL (130-400) 08/26/24 07:34
Sodium 131 mmol/L (135-145) L 08/26/24 07:34
Potassium 3.4 mmol/L (3.5-5.1) L 08/26/24 07:34
Chloride 100 mmol/L (98-107) 08/26/24 07:34
Carbon Dioxide 29 mmol/L (22-30) 08/26/24 07:34
BUN 20 mg/dl (7-17) H 08/26/24 07:34
Creatinine 2.2 mg/dL (0.6-1.0) H 08/26/24 07:34
eGFR 25.99 08/26/24 07:34
Glucose 98 mg/dl (70-99) 08/26/24 07:34
Calcium 11.8 mg/dl (8.4-10.2) H 08/26/24 07:34
Albumin 2.8 g/dl (3.5-5.0) L 08/26/24 07:34
Physical Exam
-
Vital Signs:
Vital Signs
Temp Pulse Resp BP Pulse Ox
97.3 F 83 18 154/79 93
08/26/24 08:27 08/26/24 08:27 08/26/24 08:27 08/26/24 08:29 08/26/24 08:27
Cardiovascular:: Regular rate and rhythm
Respiratory:: Bilateral: CTA
Lung Excursion:: Normal
Abdomen:: Nontender and Soft
Extremity Edema:: +1: Bilateral:
Randle Catheter: No
[2024-08-26] MEDS: LASIX 40 MG IV (15:29)
[2024-08-26 16:59] VITALS: BP 136/82
[2024-08-26 17:40] LABS: Glucose - Point of Care 152 mg/dl (70-99)
[2024-08-26] MEDS: NOVOLOG FLEXPEN-MODERATE RESISTANCE 1 UNITS SC (18:06)
[2024-08-26 20:09] VITALS: BP 140/71
[2024-08-26 21:03] LABS: Glucose - Point of Care 132 mg/dl (70-99)
[2024-08-26] MEDS: LANTUS 0.08 UNITS SC (21:24)
[2024-08-26 23:42] VITALS: BP 116/66
[2024-08-27] MEDS: SYNTHROID 88 MCG PO (05:50)
[2024-08-27 06:00] VITALS: BMI 29.7
[2024-08-27 07:23] LABS: Blood Urea Nitrogen 22 mg/dl (7-17); Calcium 11.5 mg/dl (8.4-10.2); Carbon Dioxide 29 mmol/L (22-30); Chloride 99 mmol/L (98-107); Estimated Creatinine Clearance 27 ml/min; Glucose 86 mg/dl (70-99); Potassium 3.5 mmol/L (3.5-5.1); Sodium 133 mmol/L (135-145); eGFR 25.99
[2024-08-27 07:24] VITALS: BP 138/85
[2024-08-27 07:46] LABS: Glucose - Point of Care 80 mg/dl (70-99)
[2024-08-27] MEDS: NOVOLOG FLEXPEN-MODERATE RESISTANCE SC (08:12)
[2024-08-27] MEDS: DELTASONE 5 MG PO (08:22)
[2024-08-27] MEDS: CATAPRES 0.1 MG PO (08:22)
[2024-08-27] MEDS: LIPITOR 80 MG PO (08:22)
[2024-08-27] MEDS: NORVASC 5 MG PO (08:22)
[2024-08-27] MEDS: TYLENOL 650 MG PO (08:23)
--- NOTE | 2024-08-27 08:50 | CM ---
Chart reviewed and plan is for patient to discharge to home when stable, possibly today, patient plans to follow up with [facility] after discharge.
Plan; Home no needs.
--- NOTE | 2024-08-27 10:50 | W.PN.HOSP.TC ---
Today's Communication/Plan
-
dc
Assessment / Plan
Assessment / Plan
53yo F with PMHX of RCC s/p R nephrectomy and partial L nephrectomy, CKD stage 3, Hx of nephrolithiasis, recent chemotherapy cycle that was terminated due to worsening nausea came with nausea, vomiting and minimal diarrhea over past 2 days prior to
admission, managed for complicated UTI with nephrolithiasis, bacteremia, YOLIE and also mild hypoxemia, found aortic vegetations with positive Bcx concerning for endocarditis so SHIVANI done on 08/19/24 and endocarditis ruled out. ID stopepd Abx. YOLIE
resolved. Unclear reason for YOLIE - coul;d be / passed stone as per urologist. Developed cancer-associated hypercalcemia s/p pamidronate on 08/22/24, Ca kept improving and neuphrology agreed with D/C and outpatient BMP in 1 week. Patient verbalized
understanding of the instructions. Medically stable for d/c
A/P:
# non-obstructive nephrolithiasis and mild dilation of the L upper calyces
#Nausea most likely intolerance of the recent chemo
#Cancer-associated hypercalcemia
Urology consult: monitoring, deferred stent placement with no clear signs of obstruction causing YOLIE and improvement of kidney function. Could not exclude stone passage
CT abdomen/pelvis 08/21/2024 with nonobstructed stone. I spoke with patient's oncology Dr. Guidry and it appears the patient is likely bleeding from her malignancy. Patient oncology will see patient soon outpatient for further treatment
discussion. s/p pamidronate, calcitonin
Urine not indicative of infection
Zofran
#Bacteremia with concern for Endocarditis
Endocarditis ruled out
Staph.capitis sensitive to Unasyn in 1 set (unfortunately only 1 done on admission), now appears to be contamination
Hx of strep. UTI
with ill defined mass L kidney - stable, discussed drain with IRAD on admission, at this time not indicated
Repeat Bcx NTD
UA neg
Echo: with Probable vegetation on the noncoronary cusp of the aortic valve and concern for mitral valve vegetations
Cardiology did SHIVANI on 08/19/24: appears likely calcification; no clear vegetation
ID following, now off antibiotic
#Acute hypoxic insufficiency 2/2 Atelectasis
resolved
R hemidiaphragm elevation
Bronchodilators
dec steroids back to 5mg prednisone which she takes for RA
Incentive spirometry
#YOLIE on CKD stage 3, non-oliguric
most likely hypovolemic 2/2 dehydration
freddie dc'ed; monitor
serial BMP
Nephrology: ASO and complement neg
cr slowly improving
#Hypokalemia
replete and follow
#mild hyponatremia
Monitor
#Hematuria.
Suspect likely secondary to known malignancy
Repeat CT scan did not show any obstructing stone.
Continue to monitor; now pain improving
Urology following
#RCC with liver lesions and L kidney mass and lithic osseous mets on L humeral head
cont follow up with [facility] upon d/c
#DJD
tylenol
#DM type 2 with nephropathy
DM diet, accuchecks, Insulin SS
cw glargine
holding metformin
A1c 7.4
#elevated LFT's
#Alk.phos elevation
follow LFT
HepC Ab neg
No CBD dilation and no signs of gall bladder pathology on US however does have liver mets
#Anemia of chronic disease
minimal
monitor CBC
#Essential HTN
#HLD
#hypothyroidism
#RA on steroids
Hold Rinvoq
TSH WNL
cont home meds
Gradually restart antihypertensives meds since hypotension 2/2 dehydration on admission. restarted clonidine
DVT ppx hep
Full code
I have spent at least 51 min reviewing chart, test results, communication with consultants and direct patient care
Anticipated Discharge: Today
Subjective/Interval History
-
Date of Service: August 27, 2024
Objective Data
-
Labs:
Laboratory Results
08/27/24
06:28
Sodium 133 L
Potassium 3.5
Chloride 99
Carbon Dioxide 29
BUN 22 H
Creatinine 2.2 H
Glucose 86
Calcium 11.5 H
Vital Signs:
Vital Signs
Temp Pulse Resp BP Pulse Ox
97.8 F 79 16 138/85 95
08/27/24 07:24 08/27/24 08:22 08/27/24 07:24 08/27/24 08:22 08/27/24 07:24
I&O
08/26/24 08/27/24 08/28/24
06:59 06:59 06:59
Intake Total 1920 / 1920 480 / 480
Output Total 750 / 750
Balance 1170 / 1170 480 / 480
Review of Systems
-
History Source: Patient
All other systems: Reviewed and negative
Physical Exam
-
General: Comfortable
HEENT: Normocephalic
Cardiac: Regular Rhythm
GI: Soft, Nontender and Nondistended
Neuro: Awake, Alert, Oriented and AO x 3
Psych: Calm
--- NOTE | 2024-08-27 10:55 | W.DCSUMMARY ---
Discharge Summary
Discharge Data
Date of Admission: 08/13/24
Date of Discharge: 08/27/24
-
Pending Results: No
Hospital Course
53yo F with PMHX of RCC s/p R nephrectomy and partial L nephrectomy, CKD stage 3, Hx of nephrolithiasis, recent chemotherapy cycle that was terminated due to worsening nausea came with nausea, vomiting and minimal diarrhea over past 2 days prior to
admission, managed for complicated UTI with nephrolithiasis, bacteremia, YOLIE and also mild hypoxemia, found aortic vegetations with positive Bcx concerning for endocarditis so SHIVANI done on 08/19/24 and endocarditis ruled out. ID stopepd Abx. YOLIE
resolved. Unclear reason for YOLIE - coul;d be 2/2 passed stone as per urologist. Developed cancer-associated hypercalcemia s/p pamidronate on 08/22/24, Ca kept improving and neuphrology agreed with D/C and outpatient BMP in 1 week. Passed TOV and
Randle was removed. Patient verbalized understanding of the instructions. Medically stable for d/c
I have spent at least 41 min reviewing chart, test results, communication with consultants and direct patient care
Patient was managed for:
# non-obstructive nephrolithiasis and mild dilation of the L upper calyces
#Nausea most likely intolerance of the recent chemo
#Cancer-associated hypercalcemia
#Bacteremia with concern for Endocarditis
#Acute hypoxic insufficiency 2/2 Atelectasis
#YOLIE on CKD stage 3, non-oliguric
most likely hypovolemic 2/2 dehydration
#Hypokalemia
#mild hyponatremia
#Hematuria.
#RCC with liver lesions and L kidney mass and lithic osseous mets on L humeral head
#DJD
#DM type 2 with nephropathy
#elevated LFT's
#Alk.phos elevation
#Anemia of chronic disease
#Essential HTN
#HLD
#hypothyroidism
#RA on steroids
Discharge Plan
-
Patient Disposition: Home (Routine Discharge)
Discharge Diagnosis/Procedures: UTI
Diet: Diabetic, Carb Controlled
Activity: As tolerated
Driving Restrictions: As prior to admission
Blood Work: BMP with family doctor in 1 week
Referrals:
Nakul Montes DO [Family Provider] -
Marlen Muñiz MD [Active] - in one to two weeks (for Calcium follow up)
Prescriptions:
New
amlodipine 5 mg Tablet
5 mg PO DAILY Qty: 30 0RF
furosemide [Lasix] 20 mg tablet
20 mg PO DAILYPRN PRN (Reason: leg swelling ) Qty: 30 0RF
Continued
clonidine HCl 0.1 mg Tablet
0.1 mg PO BID
Humalog KwikPen Insulin 200 unit/mL (3 mL) Insulin Pen
1 sliding scale dose SC DIRECTED
Patient Comments:
07/12/2023, patient states that they take this medication with their meals but is unsure of their sliding scale dose.
therapeutic multivitamin Tablet
1 tab PO DAILY
simethicone 80 mg Tablet,Chewable
80 mg PO QIDPRN PRN (Reason: gas)
atorvastatin 80 mg Tablet
80 mg PO DAILY
ondansetron HCl 4 mg tablet
4 mg PO Q8HPRN PRN (Reason: nausea)
prednisone 5 mg Tablet
5 mg PO DAILY
levothyroxine 88 mcg Tablet
88 mcg PO DAILY
Changed
insulin glargine U-300 conc [Toujeo SoloStar U-300 Insulin] 300 unit/mL (1.5 mL) Insulin Pen
10 unit SC HS Qty: 0 0RF
Held
Rinvoq 15 mg Tablet Extended Release 24 Hr
15 mg PO HS
Hold Instructions: Hold until resumed by your oncologist
Discontinued
metformin 500 mg Tablet Extended Release 24hr
1,000 mg PO BID@0800,1700
amlodipine-olmesartan 10-40 mg Tablet
1 tab PO DAILY
Discharge Orders:
Discharge Patient (As Directed); Ordered 08/27/24
Ordered By: Giovanni Coburn
Discharge Date and Time
Print Language: VINCENTIAN
[2024-08-27 11:46] VITALS: BP 144/88
--- NOTE | 2024-08-27 12:29 | W.PN.NEPH.PH ---
Today's Communication / Plan
-
see plan
ok for d/c
Assessment/Plan
-
Impression:
Nausea vomiting abdominal pain
Acute kidney injury 7.6)
Chronic kidney disease stage IIIb with baseline creatinine 1.6
Gapped metabolic acidosis with associated lactic acidosis ()
Hypertension
Diabetes
History of rheumatoid arthritis
History of obstructive uropathy with history of ureter stent in 2022
Right nephrectomy in 2007
Left partial nephrectomy in 2021
strep bacteremia with likely IE
Suspected metastatic renal cell carcinoma
Plan:
YOLIE-cr stable at 2.2, nonoliguric
CT scan of abdomen and pelvis did not reveal obstructive stone and hematuria is thought to be likely due to underlying malignancy
hypercalcemia felt to be from malignancy s/p Pamidronate on 08/22
huey down trending 11.5
off abx, SHIVANI negative for vegetation
complement levels Mildly low C4 12.9 /ASO negative
monitor hyponatremia- FR 48ounces/day
avoid nephrotoxins, ARB on hold
lasix 20mg prn for edema at d/c , BMP in few days
f/u with [facility] on Wednesday 08/29 perhaps have labs then too
she will speak to her team and decide on seeing prompt care rn locally
d/w pt and primary
-
-
Date of Service: August 27, 2024
CC / HPI / ROS
-
Chief Complaint:
YOLIE
History of Present Illness:
YOLIE/Cr stable at 2.2
hypercalcemia better 11.5
Hemodynamically stable
k low 3.5
Review of Systems:
no CP/SOB
Weights down
no n/v
Labs
-
Labs:
WBC 10.3 10^3/uL (4.8-10.8) 08/26/24 07:34
RBC 3.41 10^6/uL (4.20-5.40) L 08/26/24 07:34
Hgb 10.3 g/dL (12.0-16.0) L 08/26/24 07:34
Hct 32.1 % (37.0-47.0) L 08/26/24 07:34
Plt Count 229 10^3/uL (130-400) 08/26/24 07:34
Sodium 133 mmol/L (135-145) L 08/27/24 06:28
Potassium 3.5 mmol/L (3.5-5.1) 08/27/24 06:28
Chloride 99 mmol/L (98-107) 08/27/24 06:28
Carbon Dioxide 29 mmol/L (22-30) 08/27/24 06:28
BUN 22 mg/dl (7-17) H 08/27/24 06:28
Creatinine 2.2 mg/dL (0.6-1.0) H 08/27/24 06:28
eGFR 25.99 08/27/24 06:28
Glucose 86 mg/dl (70-99) 08/27/24 06:28
Calcium 11.5 mg/dl (8.4-10.2) H 08/27/24 06:28
Albumin 2.8 g/dl (3.5-5.0) L 08/26/24 07:34
Physical Exam
-
Vital Signs:
Vital Signs
Temp Pulse Resp BP Pulse Ox
97.5 F 105 16 144/88 95
08/27/24 11:46 08/27/24 11:46 08/27/24 11:46 08/27/24 11:46 08/27/24 11:46
Cardiovascular:: Regular rate and rhythm
Respiratory:: Bilateral: CTA
Lung Excursion:: Normal
Abdomen:: Nontender and Soft
Extremity Edema:: +1: Bilateral:
Randle Catheter: No
== END 2024-08-27 12:22 | disposition home or self-care (01) | DRG 687 ==
LOC: 3 WEST ACU 16:00
PROVIDERS: Internal Medicine; Internal Medicine Infectious Disease; Internal Medicine Nephrology; Nuclear Medicine Nuclear Cardiology; Nurse Practitioner Family; Physician Assistant; Specialist; ADMITTING PHYSICIAN Internal Medicine; ATTENDING PHYSICIAN Internal Medicine; CONSULT PHYSICIAN Internal Medicine Cardiovascular Disease; CONSULT PHYSICIAN Specialist; EMERGENCY PHYSICIAN Student in an Organized Health Care Education/Training Program; FAMILY PHYSICIAN Family Medicine; OTHER PHYSICIAN Specialist; OTHER PHYSICIAN Student in an Organized Health Care Education/Training Program
PROC: B24BZZ4 Ultrasonography of Heart with Aorta, Transesophageal (ICD-10-PCS; 2024-08-19)
DX: C64.2 Malignant neoplasm of left kidney, except renal pelvis (principal); C78.7 Secondary malignant neoplasm of liver and intrahepatic bile duct; N17.9 Acute kidney failure, unspecified; N39.0 Urinary tract infection, site not specified; E87.20 Acidosis, unspecified; J98.11 Atelectasis; C79.51 Secondary malignant neoplasm of bone; R78.81 Bacteremia; E27.40 Unspecified adrenocortical insufficiency; D84.821 Immunodeficiency due to drugs; E87.1 Hypo-osmolality and hyponatremia; E03.9 Hypothyroidism, unspecified; E78.00 Pure hypercholesterolemia, unspecified; I12.9 Hypertensive chronic kidney disease with stage 1 through stage 4 chronic kidney disease, or unspecified chronic kidney disease; R09.02 Hypoxemia; R06.89 Other abnormalities of breathing; E86.0 Dehydration; M19.90 Unspecified osteoarthritis, unspecified site; D63.8 Anemia in other chronic diseases classified elsewhere; B95.7 Other staphylococcus as the cause of diseases classified elsewhere; N20.0 Calculus of kidney; N18.32 Chronic kidney disease, stage 3b; G89.29 Other chronic pain; E11.22 Type 2 diabetes mellitus with diabetic chronic kidney disease; E86.1 Hypovolemia; M06.9 Rheumatoid arthritis, unspecified; I95.9 Hypotension, unspecified; E87.6 Hypokalemia; E83.52 Hypercalcemia; R79.89 Other specified abnormal findings of blood chemistry; R31.0 Gross hematuria; Z79.4 Long term (current) use of insulin; Z79.84 Long term (current) use of oral hypoglycemic drugs; Z79.890 Hormone replacement therapy; Z79.52 Long term (current) use of systemic steroids; Z90.5 Acquired absence of kidney; Z92.21 Personal history of antineoplastic chemotherapy; Z87.442 Personal history of urinary calculi; Z11.52 Encounter for screening for COVID-19; Z79.69 Long term (current) use of other immunomodulators and immunosuppressants; Z96.642 Presence of left artificial hip joint; Z77.22 Contact with and (suspected) exposure to environmental tobacco smoke (acute) (chronic)
CPT/HCPCS: 70450; 71045; 74176; 76700; 80048; 80053; 80202; 81003; 81015; 82550; 82570; 82805; 82962; 83036; 83605; 83690; 83735; 83970; 84300; 84443; 85014; 85018; 85025; 86063; 86160; 86803; 87040; 87086; 87147; 87186; 87205; 87502; 87811; 93005; 93306; 93312; 93320; 93325; 94640; 96365; 96375; 99285; J0630; J2430